=== PATIENT | female | born 1955 | race Caucasian/White ===

== ENCOUNTER → 2017-02-03 | Outpatient (CLI) | payer OTHER ==
[2017-02-03 17:28] LABS: Bilirubin, Delta 0.5 mg/dL (0.0-0.2); Total Bilirubin 1.5 mg/dL (0.2-1.3)
[2017-02-03 17:33] LABS: Basophils % (A) 0 %; CH 35.6; CHCM 33.5; Eosinophils # (A) 0.1 k/uL (0-0.7); Eosinophils % (A) 2 %; HDW 2.76; Luc # (Auto) 0.06; Luc % (Auto) 2; Lymphocytes # (A) 0.8 k/uL (1.0-4.8); Lymphocytes % (A) 28 %; MCH 34.9 pg (25.0-35.0); MCHC 32.7 g/dL (31.0-37.0); MCV 106.9 fL (80.0-100.0); Macrocytosis Moderate; Mean Platelet Volume 7.6; Monocytes # (A) 0.2 k/uL (0-1.0); Monocytes % (A) 6 %; Neutrophils # (A) 1.8 k/uL (1.3-7.7); Neutrophils % (A) 61 %; RBC 4.02 m/uL (3.80-5.40); WBC 2.9 k/uL (3.8-10.6); WBC (Perox) 2.94
== END | disposition home or self-care (01) ==
LOC: LABWHC1 16:17
DX: K74.69 Other cirrhosis of liver (principal)
CPT/HCPCS: 36415; 80076; 82105; 85025

== ENCOUNTER 2017-07-15 22:21 | Emergency (ER) | payer OTHER ==
[2017-07-15] MEDS ORDERED: KETOROLAC 30 MG/ML 1 ML VIAL IVP STA (23:21)
[2017-07-15] MEDS ORDERED: MORPHINE SULFATE 2 MG/ML SYRINGE IVP ONE (23:21)
[2017-07-15] MEDS ORDERED: ONDANSETRON 4 MG/2 ML VIAL IVP STA (23:21)
[2017-07-15] MEDS ORDERED: SODIUM CHLORIDE 0.9% 1,000 ML IV STA (23:21)
--- NOTE | 2017-07-15 23:27 | ED ---
Back Pain HPI - General Chief Complaint: Back Pain/Injury Stated Complaint: Back Pain Time Seen by Provider: 07/15/17 22:48 Source: patient Limitations: no limitations - History of Present Illness Initial Comments: Vision presents with sudden onset right flank pain since 7 PM tonight. Patient states that aching sensation in her right flank. States it was very severe on initial onset but has since improved. Patient states she has vomited twice tonight from the pain. Still feels nauseated. Patient states she's had renal stones in the past that they've seen on images, however she doesn't think she has ever passed one. Patient states she has similar episode of pain to weeks ago, was seen by her primary care physician, told she has a urinary tract infection. Patient states she's been on Bactrim. Patient denies fevers, chills , changes in bowel movements, vaginal bleeding or discharge. Patient states she feels like she has decreased urine. States she had some light pink possible blood after wiping after urinating. MD Complaint: other (flank pain) Onset/Timin -: hour(s) - Related Data Home Medications Medication Instructions Recorded Confirmed [id number]-HJA-Ckdjeyu-Codeine 1 - 2 cap PO Q4H PRN 08/24/07/15/17 [Fiorinal with Codeine] Sulfamethox-Tmp 800-160Mg [Bactrim 1 tab PO Q12HR 07/15/17 07/15/17 DS 800-160 mg] Previous Rx's Medication Instructions Recorded HYDROcodone/APAP 10-325MG [Assumption 1 tab PO Q4HR PRN #16 tab 07/16/17 10-325] Ondansetron Odt [Zofran Odt] 4 mg PO Q8HR PRN #10 tab 07/16/17 Tamsulosin [Flomax] 0.4 mg PO DAILY 5 Days #5 cap 07/16/17 Allergies Allergy/AdvReac Type Severity Reaction Status Date / Time No Known Allergies Allergy Verified 07/15/17 22:52 Review of Systems ROS Statement: Those systems with pertinent positive or pertinent negative responses have been documented in the HPI. ROS Other: All systems not noted in ROS Statement are negative. Constitutional: Denies: fever, chills ENT: Denies: throat pain, congestion Respiratory: Denies: cough, dyspnea Cardiovascular: Denies: chest pain Endocrine: Denies: fatigue Gastrointestinal: Reports: nausea, vomiting. Denies: abdominal pain, diarrhea, constipation, hematemesis, melena, hematochezia Genitourinary: Reports: hematuria. Denies: urgency, dysuria, frequency, discharge Musculoskeletal: Reports: as per HPI, back pain. Denies: arthralgia, myalgia Skin: Reports: rash, pruritus (States itching started after taking Bactrim) Past Medical History Past Medical History: Hypertension Additional Past Medical History / Comment(s): hx. migraine headaches, stopped taking BP medication on own History of Any Multi-Drug Resistant Organisms: None Reported Past Surgical History: Appendectomy, Tonsillectomy Additional Past Surgical History / Comment(s): D & C's Past Anesthesia/Blood Transfusion Reactions: No Reported Reaction Past Psychological History: No Psychological Hx Reported Smoking Status: Never smoker Past Alcohol Use History: None Reported Past Drug Use History: None Reported General Exam - General Exam Comments Initial Comments: Sitting up in chair. Appears in mild to moderate pain. Conversing normally. Calm, pleasant. Limitations: no limitations General appearance: alert Head exam: Present: atraumatic Eye exam: Present: PERRL, EOMI ENT exam: Present: mucous membranes moist Neck exam: Present: normal inspection Respiratory exam: Present: normal lung sounds bilaterally. Absent: respiratory distress, wheezes, rales Cardiovascular Exam: Present: regular rate, normal rhythm GI/Abdominal exam: Present: soft. Absent: distended, tenderness, guarding, rebound, rigid Back exam: Present: other (Red superficial scratch [place] on back bilaterally). Absent: CVA tenderness (R), CVA tenderness (L) Neurological exam: Present: alert, oriented X3 Psychiatric exam: Present: normal affect, normal mood Skin exam: Present: warm, dry, intact Course Vital Signs 07/15/17 07/15/17 22:30 23:48 Temperature 97.4 F L Pulse Rate 77 71 Respiratory 20 18 Rate Blood Pressure 181/77 199/77 O2 Sat by Pulse 98 97 Oximetry Medical Decision Making - Medical Decision Making Morphine Zofran, Toradol given for symptoms. Will get CT to rule out renal stone. CT shows 7 mm stone right ureterovesicular junction, with hydroureter and hydronephrosis. Cr 1.1. Urinalysis shows no obvious infection. Spoke with urologist Dr. Martin, updated patient condition results, states patient will passed stone on its own, can be discharged home with pain medications and call his office for follow-up. Pt updated with results and plan, states pain control at this time. We'll give prescription for Assumption and Flomax. Patient to follow up with Dr. Martin. Patient understands and agrees. Return to ED if new or worsening symptoms. - Lab Data Result diagrams: 07/15/17 23:43 07/15/17 23:43 Lab Results 07/15/17 07/15/17 07/15/17 Range/Units 23:43 23:43 23:43 WBC 4.0 (3.8-10.6) k/uL RBC 4.35 (3.80-5.40) m/uL Hgb 15.3 (11.4-16.0) gm/dL Hct 45.1 (34.0-46.0) % MCV 103.7 H (80.0-100.0) fL MCH 35.3 H (25.0-35.0) pg MCHC 34.1 (31.0-37.0) g/dL RDW 14.9 (11.5-15.5) % Sodium 141 (137-145) mmol/L Potassium 4.2 (3.5-5.1) mmol/L Chloride 105 (98-107) mmol/L Carbon Dioxide 24 (22-30) mmol/L Anion Gap 12 mmol/L BUN 14 (7-17) mg/dL Creatinine 1.10 H (0.52-1.04) mg/dL Est GFR (MDRD) Af Amer >60 (>60 ml/min/1.73 sqM) Est GFR (MDRD) Non-Af 51 (>60 ml/min/1.73 sqM) Glucose 140 H (74-99) mg/dL Calcium 9.5 (8.4-10.2) mg/dL Urine Color Yellow Urine Appearance Cloudy H (Clear) Urine pH 5.5 (5.0-8.0) Ur Specific [place] 1.025 (1.001-1.035) Urine Protein 1+ H (Negative) Urine Glucose (UA) Negative (Negative) Urine Ketones Negative (Negative) Urine Blood Large H (Negative) Urine Nitrite Negative (Negative) Urine Bilirubin Negative (Negative) Urine Urobilinogen 3.0 (<2.0) mg/dL Ur Leukocyte Esterase Large H (Negative) Urine RBC 48 H (0-5) /hpf Urine WBC 10 H (0-5) /hpf Ur Squamous Epith Cells 10 H (0-4) /hpf Urine Bacteria Rare H (None) /hpf Urine Mucus Occasional H (None) /hpf Disposition Clinical Impression: Renal stone Disposition: HOME SELF-CARE Condition: Good Instructions: Kidney Stones (ED) Additional Instructions: Make appointment with Dr. Martin for follow-up in 1-2 days. Prescriptions: HYDROcodone/APAP 10-325MG [Assumption 10-325] 1 tab PO Q4HR PRN #16 tab PRN Reason: Pain Ondansetron Odt [Zofran Odt] 4 mg PO Q8HR PRN #10 tab PRN Reason: Nausea Tamsulosin [Flomax] 0.4 mg PO DAILY 5 Days #5 cap Referrals: Saul Pearson MD [Primary Care Provider] - 1-2 days Geoff Vicente MD [STAFF PHYSICIAN] - 1-2 days
[2017-07-15 23:49] VITALS: RESP 18
[2017-07-15 23:55] LABS: Basophils % (A) 0 %; CH 34.5; CHCM 33.5; Eosinophils # (A) 0.1 k/uL (0-0.7); Eosinophils % (A) 2 %; HCT 45.1 % (34.0-46.0); HDW 2.75; HGB 15.3 gm/dL (11.4-16.0); Luc # (Auto) 0.07; Luc % (Auto) 2; Lymphocytes # (A) 0.5 k/uL (1.0-4.8); Lymphocytes % (A) 14 %; MCH 35.3 pg (25.0-35.0); MCHC 34.1 g/dL (31.0-37.0); MCV 103.7 fL (80.0-100.0); Macrocytosis Slight; Mean Platelet Volume 7.9; Monocytes # (A) 0.2 k/uL (0-1.0); Monocytes % (A) 5 %; Neutrophils # (A) 3.1 k/uL (1.3-7.7); Neutrophils % (A) 77 %; RBC 4.35 m/uL (3.80-5.40); RDW 14.9 % (11.5-15.5); WBC (Perox) 3.86
[2017-07-16 00:07] LABS: Appearance,Urine Cloudy (Clear); Bacteria,Urine Rare /hpf; Bilirubin,Urine Negative (Negative); Glucose,Urine (UA) Negative (Negative); Ketones,Urine Negative (Negative); Leukocyte Esterase,Urine Large (Negative); Mucus,Urine Occasional /hpf; Nitrite,Urine Negative (Negative); PH, Urine 5.5 (5.0-8.0); Particle Count 6531; Protein,Urine 1+ (Negative); RBC,Urine 48 /hpf (0-5); Specific Gravity,Urine 1.025 (1.001-1.035); Squamous Epithelial Cell,Urine 10 /hpf (0-4); UA Billing (MACRO vs. MICRO) MICRO; WBC,Urine 10 /hpf (0-5)
--- NOTE | 2017-07-16 00:09 | CT ---
EXAMINATION TYPE: CT renal stones wo con DATE OF EXAM: 07/15/2017 HISTORY: NO prior, lower right sided back pain, gross hematuria, currently being treated for a UTI, r enal stone protocol CT DLP: DLP:553.50 mGycm. Automated Exposure Control for Dose Reduction was Utilized. TECHNIQUE: CT scan of the abdomen and pelvis is performed without oral or IV contrast. COMPARISON: NONE FINDINGS: Lung bases are clear of consolidation. There is no pleural effusion. There is no pericardi al effusion. Spleen is enlarged and measures 15 cm. There is no evidence of pancreatic mass. There are numerous ca lcified gallstones. Bile ducts are not dilated. There is no adrenal mass. There is right-sided hydronephrosis and hydroureter. There is right-sided perinephric edema. There is a 7 mm calculus at the right ureterovesical junction. There are 2 small right renal calculi that floyd sure up to 4 mm. There is a 2 mm calculus in the lower pole left kidney. There is no retroperitoneal adenopathy. There is no ascites. Bladder distends smoothly. There is no e vidence of a pelvic mass. I see no intestinal wall thickening. There are no dilated loops. There are spondylotic changes in the lumbar spine. CONCLUSION: Cholelithiasis. Right-sided hydronephrosis and hydroureter with obstructing calculus at the right ureterovesical junc tion. Bilateral multiple renal calculi.
[2017-07-16 00:17] LABS: Anion Gap 12 mmol/L; Blood Urea Nitrogen 14 mg/dL (7-17); Calcium 9.5 mg/dL (8.4-10.2); Carbon Dioxide 24 mmol/L (22-30); Chloride 105 mmol/L (98-107); Glucose 140 mg/dL (74-99); Non-African American GFR(MDRD) 51 (>60 ml/min/1.73 sqM); Potassium 4.2 mmol/L (3.5-5.1); Sodium 141 mmol/L (137-145)
[2017-07-16 00:37] VITALS: BP 159/70; PULSE 79
[2017-07-16 00:42] LABS: Manual Review Performed; RBC Morphology Normal
[2017-07-16] MEDS ORDERED: HYDROmorphone 1 MG/ML 1 ML SYRINGE IVP STA (00:52)
[2017-07-16 01:03] VITALS: TEMP 97.7
== END 2017-07-16 01:01 | disposition home or self-care (01) ==
LOC: EC 22:21
DX: N13.2 Hydronephrosis with renal and ureteral calculous obstruction (principal); Z90.49 Acquired absence of other specified parts of digestive tract
CPT/HCPCS: 99284; 96374; 96375 ×3; 96361; 36415; 80048; 85025; 81001; 87086; 74150; J2405; J1885; J2270; J1170

== ENCOUNTER → 2017-08-07 | Outpatient (CLI) | payer OTHER ==
[2017-08-07 16:26] LABS: Bilirubin, Delta 0.4 mg/dL (0.0-0.2); Total Bilirubin 1.3 mg/dL (0.2-1.3); Total Protein 6.6 g/dL (6.3-8.2)
== END | disposition home or self-care (01) ==
LOC: LABWHC1 15:35
DX: K74.69 Other cirrhosis of liver (principal)
CPT/HCPCS: 36415; 80076; 82105

== ENCOUNTER → 2018-01-27 | Outpatient (CLI) | payer OTHER ==
[2018-01-27 15:58] LABS: HCT 39.9 % (34.0-46.0); HGB 13.8 gm/dL (11.4-16.0); MCH 35.1 pg (25.0-35.0); MCHC 34.6 g/dL (31.0-37.0); MCV 101.3 fL (80.0-100.0); Macrocytosis Slight; Mean Platelet Volume 7.2; RBC 3.94 m/uL (3.80-5.40); RDW 14.3 % (11.5-15.5); WBC 3.7 k/uL (3.8-10.6)
[2018-01-27 16:08] LABS: ALT 50 U/L (9-52); AST 59 U/L (14-36); Albumin 3.7 g/dL (3.5-5.0); Alkaline Phosphatase 97 U/L (38-126); Anion Gap 10 mmol/L; Blood Urea Nitrogen 14 mg/dL (7-17); Calcium 9.5 mg/dL (8.4-10.2); Carbon Dioxide 28 mmol/L (22-30); Chloride 108 mmol/L (98-107); Glucose 99 mg/dL (74-99); Potassium 4.7 mmol/L (3.5-5.1); Sodium 146 mmol/L (137-145); Total Bilirubin 1.8 mg/dL (0.2-1.3); Total Protein 6.6 g/dL (6.3-8.2)
[2018-01-27 16:34] LABS: Platelet Count 70 k/uL (150-450)
== END | disposition home or self-care (01) ==
LOC: LABWHC1 15:39
DX: K74.69 Other cirrhosis of liver (principal)
CPT/HCPCS: 36415; 80053; 82105; 85027

== ENCOUNTER → 2018-07-29 | Outpatient (CLI) | payer OTHER ==
[2018-07-29 17:11] LABS: HGB 13.5 gm/dL (11.4-16.0); MCH 35.5 pg (25.0-35.0); MCHC 32.9 g/dL (31.0-37.0); MCV 108.1 fL (80.0-100.0); Macrocytosis Marked; Mean Platelet Volume 7.2; RBC 3.79 m/uL (3.80-5.40); RDW 14.4 % (11.5-15.5); WBC 2.5 k/uL (3.8-10.6)
[2018-07-29 18:41] LABS: Platelet Count 51 k/uL (150-450)
[2018-07-30 03:25] LABS: Albumin 3.6 g/dL (3.80-4.90); Albumin/Globulin Ratio 1.57 (1.20-2.10); Anion Gap 6.2 mmol/L (4.00-12.00); Calcium 8.8 mg/dL (8.7-10.3); Carbon Dioxide 27.8 mmol/L (21.6-31.8); Globulin 2.3 g/dL (2.1-3.7); Potassium 4.3 mmol/L (3.5-5.5); Total Bilirubin 1.6 mg/dL (0.3-1.2); Total Protein 5.9 g/dL (6.2-8.2)
== END | disposition home or self-care (01) ==
LOC: LABWHC1 15:32
DX: K74.69 Other cirrhosis of liver (principal)
CPT/HCPCS: 36415; 80053; 82105; 85027

== ENCOUNTER → 2019-02-11 | Outpatient (CLI) | payer BC ==
[2019-02-11 16:17] LABS: Basophils % (A) 1 %; Eosinophils # (A) 0.1 k/uL (0-0.7); Eosinophils % (A) 4 %; HCT 41.6 % (34.0-46.0); HGB 13.8 gm/dL (11.4-16.0); Lymphocytes # (A) 0.7 k/uL (1.0-4.8); Lymphocytes % (A) 32 %; MCHC 33.1 g/dL (31.0-37.0); MCV 105.7 fL (80.0-100.0); Macrocytosis Moderate; Mean Platelet Volume 8.2; Monocytes # (A) 0.2 k/uL (0-1.0); Monocytes % (A) 7 %; Neutrophils # (A) 1.2 k/uL (1.3-7.7); Neutrophils % (A) 54 %; RBC 3.93 m/uL (3.80-5.40); RDW 14.2 % (11.5-15.5); WBC 2.3 k/uL (3.8-10.6)
[2019-02-11 16:52] LABS: Platelet Count 59 k/uL (150-450)
[2019-02-11 23:51] LABS: Albumin 3.5 g/dL (3.80-4.90); Albumin/Globulin Ratio 1.4 (1.60-3.17); Anion Gap 7.3 mmol/L (4.00-12.00); Calcium 8.7 mg/dL (8.7-10.3); Carbon Dioxide 28.7 mmol/L (21.6-31.8); Globulin 2.5 g/dL (1.6-3.3); Potassium 4.3 mmol/L (3.5-5.5); Total Bilirubin 1.9 mg/dL (0.3-1.2)
== END | disposition home or self-care (01) ==
LOC: LABWHC1 15:42
DX: K74.69 Other cirrhosis of liver (principal)
CPT/HCPCS: 36415; 80053; 85025

== ENCOUNTER → 2019-02-17 | Outpatient (CLI) | payer BC, OTHER ==
--- NOTE | 2019-02-17 10:52 | CT ---
EXAMINATION TYPE: CT abdomen wo/w con DATE OF EXAM: 02/17/2019 COMPARISON: 07/15/2017 INDICATION: Cirrhosis of liver DLP: 1333.6 mGycm, Automated exposure control for dose reduction was used. CONTRAST: 100 mL of Isovue 300. Study performed with Oral Contrast TECHNIQUE: Axial images were obtained from above the diaphragm to the pubic rami in the axial plane a t 5 mm thick sections. Reconstructed images are reviewed on the computer in the coronal plane. FINDINGS: Limited CT sections are obtained the lung bases. A 0.3 cm calcification may be adjacent to the major fissure at the right lower lung field. Series 4 image 1. This was present previously. Possible calci fication may be in the posterior lateral right lung base 0.3 cm. Series [address] ABDOMEN: There may be some thickening within the distal antrum and proximal duodenum at the pyloru s.. Liver: Normal Spleen: Enlarged Pancreas: Normal Adrenal glands: The adrenal glands are normal. Gallbladder: Cholelithiasis Kidneys: No masses are evident. No hydronephrosis is present. No cysts are present. There is a 0.3 cm nonobstructing renal stone inferior pole right kidney. There is a nonobstructing renal stone nani uring 0.4 cm superior pole right kidney. Nonobstructing 0.2 cm calcification is at the inferior pole left kidney. Aorta: Vascular calcification is within the aorta. Inferior vena cava: Normal. Loops of bowel within the abdomen and pelvis are otherwise normal. There are loops of bowel which are incompletely distended or lack oral contrast limiting their evaluation. IMPRESSIONS: 1. Nonobstructing bilateral renal stones. 2. Cholelithiasis. 3. Thickening at the distal antrum the stomach and proximal duodenum through the pylorus. Correlate f or inflammatory changes. Ulcer could have this type of thickening. Neoplasm is not excluded but could be considered. 4. Splenomegaly
== END ==
LOC: RADCTMAIN 08:33
DX: N20.0 Calculus of kidney (principal); K80.20 Calculus of gallbladder without cholecystitis without obstruction; K31.89 Other diseases of stomach and duodenum
CPT/HCPCS: 74170; Q9967

== ENCOUNTER → 2019-05-03 | Outpatient (CLI) | payer BC | END | disposition home or self-care (01) | LOC: LABWHC1 16:13 | PROVIDERS: ATTEND Family Medicine | DX: M85.80 Other specified disorders of bone density and structure, unspecified site (principal) | CPT/HCPCS: 36415; 82306 ==

== ENCOUNTER → 2020-04-25 | Outpatient (CLI) | payer BC ==
[2020-04-25 15:13] LABS: Basophils % (A) 1 %; Eosinophils # (A) 0.1 k/uL (0-0.7); Eosinophils % (A) 3 %; HCT 39.9 % (34.0-46.0); HGB 12.7 gm/dL (11.4-16.0); Lymphocytes # (A) 0.7 k/uL (1.0-4.8); Lymphocytes % (A) 29 %; MCH 35.2 pg (25.0-35.0); MCHC 31.8 g/dL (31.0-37.0); MCV 110.7 fL (80.0-100.0); Macrocytosis Marked; Mean Platelet Volume 8.6; Monocytes # (A) 0.2 k/uL (0-1.0); Monocytes % (A) 7 %; Neutrophils # (A) 1.3 k/uL (1.3-7.7); Neutrophils % (A) 57 %; RDW 14.7 % (11.5-15.5); WBC 2.4 k/uL (3.8-10.6)
[2020-04-25 15:31] LABS: Platelet Count 44 k/uL (150-450)
[2020-04-25 19:45] LABS: African American GFR (CKD) 78.9 (60.0-200.0); Albumin 3.2 g/dL (3.80-4.90); Albumin/Globulin Ratio 1.33 (1.60-3.17); Anion Gap 5.7 mmol/L (4.00-12.00); BUN/Creat Ratio 13.33 Ratio (12.00-20.00); Calcium 9.4 mg/dL (8.7-10.3); Carbon Dioxide 27.3 mmol/L (21.6-31.8); Globulin 2.4 g/dL (1.6-3.3); Potassium 4.1 mmol/L (3.5-5.5); Total Bilirubin 3.9 mg/dL (0.2-1.2); Total Protein 5.6 g/dL (6.2-8.2)
== END | disposition home or self-care (01) ==
LOC: LABWHC1 14:21
PROVIDERS: ATTEND Internal Medicine
DX: K74.69 Other cirrhosis of liver (principal)
CPT/HCPCS: 36415; 80053; 82105; 85025

== ENCOUNTER → 2020-04-26 | Outpatient (CLI) | payer BC ==
--- NOTE | 2020-04-26 15:16 | US ---
EXAMINATION TYPE: US abdomen complete DATE OF EXAM: 04/26/2020 COMPARISON: NONE CLINICAL HISTORY: K74.69 Other cirrhosis of liver. EXAM MEASUREMENTS: Liver Length: 10.5 cm Gallbladder Wall: 0.3 cm CBD: 0.4 cm Spleen: 13.6 cm Right Kidney: 9.4 x 5.2 x 4.1 cm Left Kidney: 10.2 x 4.6 x 4.5 cm Patient of large body habitus with extensive overlying bowel gas. Technically difficult, limited stud y. Pancreas: Obscured by bowel gas Liver: partially obscured by bowel gas, portions visualized heterogeneous Gallbladder: cholelithiasis Evidence for sonographic Duarte's sign: no CBD: wnl Spleen: splenomegaly, ?varices adjacent to spleen Right Kidney: Inferior pole obscured by bowel gas, limited views Left Kidney: inferior stone noted, partially obscured by bowel gas, limited views Upper IVC: wnl Abd Aorta: portions visualized wnl, proximal and bifurcation obscured by bowel gas IMPRESSION: 1. Cholelithiasis. 2. Minimal splenomegaly measuring 13.6 cm. Normal less than 12.5 cm. Some varices may be adjacent to the spleen. 3. Inferior pole nonobstructing left renal stone.
== END | disposition home or self-care (01) ==
LOC: RADUSWWP 14:19
PROVIDERS: ATTEND Internal Medicine
DX: K80.20 Calculus of gallbladder without cholecystitis without obstruction (principal); R16.1 Splenomegaly, not elsewhere classified; N20.0 Calculus of kidney
CPT/HCPCS: 76700

== ENCOUNTER 2020-06-05 10:33 | Day surgery (SDC) | payer BC ==
[2020-06-01 11:26] VITALS: BMI 35.8
[~2020-06-05 10:33] MED LIST: LACTATED RINGERS 1,000 ML IV SCH
[2020-06-05 11:09] VITALS: TEMP 97.7
[2020-06-05] MEDS ORDERED: LIDOCAINE 1% (10MG/ML) FOR IV START INTRADERMA ONE (11:10)
[2020-06-05] MEDS ORDERED: PROPOFOL 10 MG/ML 20 ML VIAL IV ONE (12:08)
[2020-06-05] MEDS ORDERED: LIDOCAINE 1% INJ 10MG/ML (20 ML MDV) ONE (12:08)
--- NOTE | 2020-06-05 12:35 | P.PCN ---
Date of Procedure: 06/05/20 Description of Procedure: BRIEF HISTORY: Patient is a 64-year-old female presenting for outpatient EGD for evaluation of cirrhosis. The patient has a known history of cryptogenic cirrhosis. No signs or symptoms of GI bleeding but she has had symptoms of fluid overload and was started on diuretic therapy recently. PROCEDURE PERFORMED: Esophagogastroduodenoscopy with biopsy. PREOPERATIVE DIAGNOSIS: Cirrhosis of the liver. ESTIMATED BLOOD LOSS: Minimal. IV sedation per anesthesia. PROCEDURE: After informed consent was obtained, the patient was brought into the endoscopy unit. IV sedation was administered by Anesthesia under continuous monitoring. Initially the Olympus GIF-190 video endoscope was inserted into the mouth. Esophagus intubated without any difficulty. It was gradually advanced into the stomach and duodenum and carefully examined. The bulb and the second part of the duodenum appeared normal, with biopsies taken. The scope at this time was withdrawn to the stomach, adequately insufflated with air, and upon careful examination, mucosa of the antrum, body, cardia and the fundus appeared normal, except for mild erythema in the antrum suggestive of mild antritis with biopsies of the antrum and body taken. The scope was then withdrawn into the esophagus. The GE junction was located at 38 cm from the incisors. The esophagus appeared normal. There were no erosions or ulcerations seen and the patient tolerated the procedure well. IMPRESSION: 1. Mild gastritis. 2. Biopsies of the duodenum and antrum and body. RECOMMENDATIONS: The findings of this examination were discussed with the patient in her family. Okay to resume diet. Okay to resume medications. Follow-up in GI clinic as scheduled for continued titration of medications. Repeat EGD in 2 years for variceal screening.
[2020-06-05 12:57] VITALS: BP 148/85; PULSE 65; RESP 20
== END 2020-06-05 13:33 | disposition home or self-care (01) ==
LOC: ORWHC2ENDO 10:33
PROVIDERS: ATTEND Internal Medicine
DX: K29.50 Unspecified chronic gastritis without bleeding (principal); K74.69 Other cirrhosis of liver; I10 Essential (primary) hypertension; G43.909 Migraine, unspecified, not intractable, without status migrainosus; Z79.899 Other long term (current) drug therapy; Z90.49 Acquired absence of other specified parts of digestive tract
CPT/HCPCS: 88305; 43239; J2001; J2704

== ENCOUNTER → 2020-10-03 | Outpatient (CLI) | payer BC ==
[2020-10-03 15:37] LABS: Basophils % (A) 1 %; Eosinophils # (A) 0.1 k/uL (0-0.7); Eosinophils % (A) 3 %; HCT 40.2 % (34.0-46.0); Lymphocytes # (A) 0.6 k/uL (1.0-4.8); Lymphocytes % (A) 21 %; MCH 39.1 pg (25.0-35.0); MCHC 34.7 g/dL (31.0-37.0); MCV 112.6 fL (80.0-100.0); Macrocytosis Marked; Mean Platelet Volume 8.3; Monocytes # (A) 0.2 k/uL (0-1.0); Monocytes % (A) 8 %; Neutrophils # (A) 1.9 k/uL (1.3-7.7); Neutrophils % (A) 64 %; RBC 3.57 m/uL (3.80-5.40); RDW 14.5 % (11.5-15.5); WBC 2.9 k/uL (3.8-10.6)
[2020-10-03 15:48] LABS: Platelet Count 57 k/uL (150-450)
[2020-10-03 22:51] LABS: INR 1.14 (0.90-1.11); Prothrombin Time 12.2 sec (9.9-11.9)
[2020-10-04 08:39] LABS: African American GFR (CKD) 55.7 (60.0-200.0); Albumin 3.4 g/dL (3.80-4.90); Albumin/Globulin Ratio 2.27 (1.60-3.17); Anion Gap 9.9 mmol/L (4.00-12.00); BUN/Creat Ratio 16.67 Ratio (12.00-20.00); Calcium 9.1 mg/dL (8.7-10.3); Carbon Dioxide 25.1 mmol/L (21.6-31.8); Globulin 1.5 g/dL (1.6-3.3); Non-African American GFR(CKD) 48.1 (60.0-200.0); Potassium 4.4 mmol/L (3.5-5.5); Total Bilirubin 4.3 mg/dL (0.2-1.2); Total Protein 4.9 g/dL (6.2-8.2)
== END | disposition home or self-care (01) ==
LOC: LABWHC1 15:19
PROVIDERS: ATTEND Internal Medicine
DX: K74.69 Other cirrhosis of liver (principal)
CPT/HCPCS: 36415; 80053; 82140; 85025; 85610

== ENCOUNTER → 2020-11-10 | Outpatient (CLI) | payer BC ==
[2020-11-10 12:25] LABS: ALT 65 U/L (8-44); AST 85 U/L (13-35); African American GFR (CKD) 68.9 (60.0-200.0); Albumin/Globulin Ratio 2.75 (1.60-3.17); Alkaline Phosphatase 116 U/L (41-126); Calcium 8.6 mg/dL (8.7-10.3); Carbon Dioxide 28.4 mmol/L (21.6-31.8); Chloride 106 mmol/L (96-109); Cholesterol 174 mg/dL (0-200); Globulin 1.2 g/dL (1.6-3.3); Glucose 96 mg/dL (70-110); Non-African American GFR(CKD) 59.5 (60.0-200.0); Potassium 4.9 mmol/L (3.5-5.5); Sodium 139 mmol/L (135-145); Total Bilirubin 5.6 mg/dL (0.3-1.2); Total Protein 4.5 g/dL (6.2-8.2); Triglycerides <50.0 mg/dL (0.0-149.0)
[2020-11-10 12:36] LABS: Basophils # (A) 0.03 X 10*3/uL (0.00-0.10); Basophils % (A) 1.2 %; Eosinophils # (A) 0.18 X 10*3/uL (0.04-0.35); Eosinophils % (A) 7.2 %; HGB 12.7 g/dL (12.0-15.0); Lymphocytes # (A) 0.51 X 10*3/uL (0.90-5.00); Lymphocytes % (A) 20.5 %; MCHC 34.3 g/dL (32.0-37.0); MCV 113.5 fL (80.0-97.0); Neutrophils # (A) 1.46 X 10*3/uL (1.80-7.70); Neutrophils % (A) 58.7 %; Platelet Count 50 X 10*3/uL (140-440); RBC 3.26 X 10*6/uL (4.10-5.20); WBC 2.49 X 10*3/uL (4.50-10.00)
[2020-11-10 12:37] LABS: Macrocytosis (M) 2+
== END | disposition home or self-care (01) ==
LOC: LABWHC1 07:05
PROVIDERS: ATTEND Family Medicine
DX: I10 Essential (primary) hypertension (principal); M85.80 Other specified disorders of bone density and structure, unspecified site
CPT/HCPCS: 36415; 80053; 80061; 82306; 84443; 85025

== ENCOUNTER → 2020-11-30 | Outpatient (CLI) | payer BC ==
[2020-11-30 16:55] LABS: INR 1.24 (0.90-1.11); Prothrombin Time 13.3 sec (9.9-11.9)
[2020-11-30 17:12] LABS: Basophils # (A) 0.03 X 10*3/uL (0.00-0.10); Basophils % (A) 1.4 %; Eosinophils # (A) 0.09 X 10*3/uL (0.04-0.35); Eosinophils % (A) 4.1 %; HGB 11.7 g/dL (12.0-15.0); Lymphocytes # (A) 0.38 X 10*3/uL (0.90-5.00); Lymphocytes % (A) 17.1 %; MCH 38.4 pg (27.0-32.0); MCHC 33.4 g/dL (32.0-37.0); MCV 114.8 fL (80.0-97.0); Mean Platelet Volume 10.3 fL (9.5-12.2); Neutrophils # (A) 1.52 X 10*3/uL (1.80-7.70); Neutrophils % (A) 68.4 %; Platelet Count 46 X 10*3/uL (140-440); RBC 3.05 X 10*6/uL (4.10-5.20); RDW 15.3 % (11.5-14.5); WBC 2.22 X 10*3/uL (4.50-10.00)
[2020-12-01 03:43] LABS: African American GFR (CKD) 68.9 (60.0-200.0); Albumin 3.3 g/dL (3.80-4.90); Albumin/Globulin Ratio 2.36 (1.60-3.17); Anion Gap 11.3 mmol/L (4.00-12.00); Calcium 8.7 mg/dL (8.7-10.3); Carbon Dioxide 22.7 mmol/L (21.6-31.8); Globulin 1.4 g/dL (1.6-3.3); Non-African American GFR(CKD) 59.5 (60.0-200.0); Potassium 4.5 mmol/L (3.5-5.5); Total Bilirubin 5.8 mg/dL (0.2-1.2); Total Protein 4.7 g/dL (6.2-8.2)
== END | disposition home or self-care (01) ==
LOC: LABWHC1 10:12
PROVIDERS: ATTEND Internal Medicine
DX: K74.69 Other cirrhosis of liver (principal)
CPT/HCPCS: 36415; 80053; 82105; 82140; 85025; 85610

== ENCOUNTER → 2020-12-21 | Outpatient (CLI) | payer BC ==
--- NOTE | 2020-12-21 10:35 | US ---
EXAMINATION TYPE: US abdomen complete DATE OF EXAM: 12/21/2020 COMPARISON: NONE CLINICAL HISTORY: K74.69 other cirrhosis of liver. Cirrhosis exam limited due to body habitus and ove rlying bowel gas. EXAM MEASUREMENTS: Liver Length: 11.5 cm Gallbladder Wall: .3 cm CBD: .6 cm Spleen: 14.1 cm Right Kidney: 8.6 x 4.3 x 4.4 cm Left Kidney: 10.2 x 4.1 x 3.6 cm Pancreas: Obscured by bowel gas Liver: Increased attenuation heterogenous Gallbladder: Multiple gallstones seen. Evidence for sonographic Duarte's sign: No CBD: wnl Spleen: Spleenomegaly Right Kidney: Limited due to bowel gas Left Kidney: Limited due to bowel gas Upper IVC: wnl Abd Aorta: wnl IMPRESSION: 1. Heterogenous appearance to the liver. Correlate for mild fatty infiltration. 2. Splenomegaly. 3. Cholelithiasis 4. Small amount of ascites.
== END | disposition home or self-care (01) ==
LOC: RADUSWWP 06:55
PROVIDERS: ATTEND Internal Medicine
DX: K74.69 Other cirrhosis of liver (principal); R16.1 Splenomegaly, not elsewhere classified; K80.20 Calculus of gallbladder without cholecystitis without obstruction; R18.8 Other ascites
CPT/HCPCS: 76700

== ENCOUNTER → 2021-03-13 | Outpatient (CLI) | payer BC ==
[2021-03-13 22:42] LABS: INR 1.2 (0.90-1.11); Prothrombin Time 12.9 sec (9.9-11.9)
[2021-03-13 22:57] LABS: Basophils # (A) 0.03 X 10*3/uL (0.00-0.10); Basophils % (A) 0.6 %; Eosinophils # (A) 0.12 X 10*3/uL (0.04-0.35); Eosinophils % (A) 2.5 %; HCT 32.2 % (37.2-46.3); HGB 10.8 g/dL (12.0-15.0); Lymphocytes # (A) 0.61 X 10*3/uL (0.90-5.00); Lymphocytes % (A) 12.7 %; MCH 39.9 pg (27.0-32.0); MCHC 33.5 g/dL (32.0-37.0); MCV 118.8 fL (80.0-97.0); Mean Platelet Volume 10.6 fL (9.5-12.2); Monocytes # (A) 0.52 X 10*3/uL (0.20-1.00); Monocytes % (A) 10.8 %; Neutrophils % (A) 72.8 %; Platelet Count 70 X 10*3/uL (140-440); RBC 2.71 X 10*6/uL (4.10-5.20); RDW 16.5 % (11.5-14.5); WBC 4.81 X 10*3/uL (4.50-10.00)
[2021-03-14 04:01] LABS: African American GFR (CKD) 68.9 (60.0-200.0); Albumin 3.1 g/dL (3.80-4.90); Albumin/Globulin Ratio 1.94 (1.60-3.17); Anion Gap 7.6 mmol/L (4.00-12.00); Calcium 8.4 mg/dL (8.7-10.3); Carbon Dioxide 25.4 mmol/L (21.6-31.8); Globulin 1.6 g/dL (1.6-3.3); Non-African American GFR(CKD) 59.5 (60.0-200.0); Potassium 4.4 mmol/L (3.5-5.5); Total Protein 4.7 g/dL (6.2-8.2)
== END | disposition home or self-care (01) ==
LOC: LABWHC1 15:53
PROVIDERS: ATTEND Internal Medicine
DX: K74.69 Other cirrhosis of liver (principal)
CPT/HCPCS: 36415; 80053; 82140; 85025; 85610

== ENCOUNTER → 2021-06-18 | Outpatient (CLI) | payer BC ==
[2021-06-18 23:29] LABS: INR 1.15 (0.90-1.11); Prothrombin Time 12.4 sec (9.9-11.9)
[2021-06-19 06:25] LABS: Basophils # (A) 0.04 X 10*3/uL (0.00-0.10); Basophils % (A) 1.1 %; Eosinophils # (A) 0.25 X 10*3/uL (0.04-0.35); Eosinophils % (A) 7.1 %; HCT 31.7 % (37.2-46.3); HGB 10.7 g/dL (12.0-15.0); Lymphocytes # (A) 0.53 X 10*3/uL (0.90-5.00); MCH 39.2 pg (27.0-32.0); MCHC 33.8 g/dL (32.0-37.0); MCV 116.1 fL (80.0-97.0); Mean Platelet Volume 10.5 fL (9.5-12.2); Monocytes # (A) 0.44 X 10*3/uL (0.20-1.00); Monocytes % (A) 12.5 %; Neutrophils # (A) 2.26 X 10*3/uL (1.80-7.70); Platelet Count 63 X 10*3/uL (140-440); RBC 2.73 X 10*6/uL (4.10-5.20); RDW 15.2 % (11.5-14.5); WBC 3.53 X 10*3/uL (4.50-10.00)
[2021-06-19 06:26] LABS: Macrocytosis (M) 2+
[2021-06-19 07:54] LABS: African American GFR (CKD) 61.4 (60.0-200.0); Albumin 3.2 g/dL (3.80-4.90); Anion Gap 9.2 mmol/L (4.00-12.00); BUN/Creat Ratio 21.82 Ratio (12.00-20.00); Calcium 8.6 mg/dL (8.7-10.3); Carbon Dioxide 23.8 mmol/L (21.6-31.8); Globulin 1.6 g/dL (1.6-3.3); Potassium 4.2 mmol/L (3.5-5.5); Total Bilirubin 6.8 mg/dL (0.3-1.2); Total Protein 4.8 g/dL (6.2-8.2)
== END | disposition home or self-care (01) ==
LOC: LABWHC1 16:23
PROVIDERS: ATTEND Internal Medicine Gastroenterology
DX: K74.69 Other cirrhosis of liver (principal)
CPT/HCPCS: 36415; 80053; 82140; 85025; 85610

== ENCOUNTER → 2021-09-20 | Outpatient (CLI) | payer BC ==
[2021-09-20 19:20] LABS: INR 1.49 (0.90-1.11); Prothrombin Time 16.1 sec (9.9-11.9)
[2021-09-20 19:45] LABS: Basophils # (A) 0.02 X 10*3/uL (0.00-0.10); Basophils % (A) 0.6 %; Eosinophils # (A) 0.09 X 10*3/uL (0.04-0.35); Eosinophils % (A) 2.8 %; HCT 30.9 % (37.2-46.3); HGB 9.8 g/dL (12.0-15.0); Lymphocytes # (A) 0.34 X 10*3/uL (0.90-5.00); Lymphocytes % (A) 10.7 %; MCH 39.4 pg (27.0-32.0); MCHC 31.7 g/dL (32.0-37.0); MCV 124.1 fL (80.0-97.0); Mean Platelet Volume 11.6 fL (9.5-12.2); Monocytes # (A) 0.22 X 10*3/uL (0.20-1.00); Monocytes % (A) 6.9 %; Neutrophils # (A) 2.49 X 10*3/uL (1.80-7.70); Neutrophils % (A) 78.1 %; Platelet Count 52 X 10*3/uL (140-440); RBC 2.49 X 10*6/uL (4.10-5.20); WBC 3.19 X 10*3/uL (4.50-10.00)
[2021-09-20 19:56] LABS: African American GFR (CKD) 33.9 (60.0-200.0); Albumin 2.5 g/dL (3.8-4.9); Albumin/Globulin Ratio 1.19 (1.60-3.17); Anion Gap 12.5 mmol/L (10.00-18.00); BUN/Creat Ratio 12.56 Ratio (12.00-20.00); Blood Urea Nitrogen 22.6 mg/dL (9.0-27.0); Calcium 8.2 mg/dL (8.7-10.3); Carbon Dioxide 22.5 mmol/L (20.0-27.5); Globulin 2.1 g/dL (1.6-3.3); Non-African American GFR(CKD) 29.2 (60.0-200.0); Potassium 3.8 mmol/L (3.5-5.5); Total Bilirubin 8.2 mg/dL (0.30-1.20); Total Protein 4.6 g/dL (6.2-8.2)
== END | disposition home or self-care (01) ==
LOC: LABWHC1 11:37
PROVIDERS: ATTEND Nurse Practitioner Family
DX: K74.69 Other cirrhosis of liver (principal)
CPT/HCPCS: 36415; 80053; 85025; 85610

== ENCOUNTER 2021-10-14 12:33 | Inpatient (IN) | payer BC ==
[2021-10-14 13:48] LABS: Albumin 2.4 g/dL (3.5-5.0); Bilirubin, Conjugated 1.6 mg/dL (0.0-0.3); Bilirubin, Delta 3.1 mg/dL (0.0-0.2); Bilirubin,Unconjugated 5.5 mg/dL (0.0-1.1); Calcium 8.6 mg/dL (8.4-10.2); Potassium 4.2 mmol/L (3.5-5.1); Total Bilirubin 10.2 mg/dL (0.2-1.3)
[2021-10-14 13:51] LABS: Anisocytosis Slight; Basophils % (A) 1 %; Eosinophils # (A) 0.2 k/uL (0-0.7); Eosinophils % (A) 3 %; HCT 27.5 % (34.0-46.0); HGB 9.2 gm/dL (11.4-16.0); Hypochromasia Moderate; Lymphocytes # (A) 0.4 k/uL (1.0-4.8); Lymphocytes % (A) 7 %; MCH 41.9 pg (25.0-35.0); MCHC 33.5 g/dL (31.0-37.0); MCV 125.1 fL (80.0-100.0); Macrocytosis Marked; Mean Platelet Volume 8.3; Monocytes # (A) 0.3 k/uL (0-1.0); Monocytes % (A) 5 %; Neutrophils # (A) 4.9 k/uL (1.3-7.7); Neutrophils % (A) 83 %; Poikilocytosis Moderate; RDW 17.3 % (11.5-15.5)
--- NOTE | 2021-10-14 14:00 | XR ---
EXAMINATION TYPE: XR chest 2V DATE OF EXAM: 10/14/2021 COMPARISON: Chest CT 02/20/2015 HISTORY: Increasing shortness of breath TECHNIQUE: Frontal and lateral views of the chest are obtained. FINDINGS: There habeen interval development of a large right pleural effusion, the right hemidiaphra gm and heart border obscured. There is minimal opacified along the right upper lobe. No evident pneum othorax. IMPRESSION: Large right pleural effusion, follow-up suggested, there may be underlying pneumonia, at electasis, cannot exclude mass
[2021-10-14 14:19] LABS: INR 1.5 (<1.2); Partial Thromboplastin Time 32.4 sec (22.0-30.0); Prothrombin Time 15.2 sec (9.0-12.0)
--- NOTE | 2021-10-14 14:38 | ED ---
SOB HPI - General Chief Complaint: Shortness of Breath Stated Complaint: SOB Source: patient Mode of arrival: wheelchair Limitations: no limitations - History of Present Illness Initial Comments: 65-year-old female presents emergency Department with reported respiratory insufficiency. Patient does have a history of cryptogenic liver disease. She is followed by Dr. Torres. States that she has been going through [facility] for evaluation of possible liver transplant. States that over the past several days she has had worsening shortness of breath. Denies any history of cardiac or pulmonary issues. Denies any changes in skin coloration. Patient does have ecchymosis of her upper extremities which she states is normal for her. She denies any chest pain. Reports that her liver enzymes have been slowly worsening however Dr. Torres is aware of this. She denies cough, fevers or chills. No worsening abdominal ascites. Patient has never received a paracentesis before. Denies any worsening of her lower extremity edema. No other alleviating, precipitating mopping factors - Related Data Home Medications Medication Instructions Recorded Confirmed Fluticasone Propionate [Flovent 1 puff INHALATION RT-BID 10/14/21 10/14/21 Hfa 110 mcg] Furosemide [Lasix] 40 mg PO Q48H 10/14/21 10/14/21 Ondansetron [Zofran] 4 mg PO Q8H PRN 10/14/21 10/14/21 Spironolactone [Aldactone] 100 mg PO Q48H 10/14/21 10/14/21 Allergies Allergy/AdvReac Type Severity Reaction Status Date / Time No Known Allergies Allergy Verified 10/14/21 13:42 Review of Systems ROS Statement: Those systems with pertinent positive or pertinent negative responses have been documented in the HPI. ROS Other: All systems not noted in ROS Statement are negative. Past Medical History Past Medical History: Hypertension Additional Past Medical History / Comment(s): hx. migraine headaches,. CI RROHISIS OF LIVER-UNKNOWN ORIGIN History of Any Multi-Drug Resistant Organisms: None Reported Past Surgical History: Appendectomy, Tonsillectomy Additional Past Surgical History / Comment(s): D & C's Past Anesthesia/Blood Transfusion Reactions: No Reported Reaction Past Psychological History: No Psychological Hx Reported Smoking Status: Never smoker Past Alcohol Use History: None Reported Past Drug Use History: None Reported - Past Family History Mother Family Medical History: Cancer General Exam Limitations: no limitations Course Vital Signs 10/14/21 10/14/21 12:35 14:56 Temperature 98.5 F Pulse Rate 106 H 90 Respiratory 22 18 Rate Blood Pressure 127/58 141/63 O2 Sat by Pulse 95 94 L Oximetry Medical Decision Making - Medical Decision Making Upon arrival patient is placed into room 7. A thorough history and physical exam is performed. IV is established laboratory studies were conducted. Patient does have a hemoglobin of 9.2. Platelets 62. INR 1.5. D-dimer 4.23. Creatinine is 2.5 which is elevated for the patient. She has recently been switched to every other day Lasix dosing. Lactic acid 3.7. Total bilirubin 10.2. Chest x-ray does demonstrate a large right-sided pleural effusion. I did call and speak with Dr. Todd. He requests a transfusion of FFP and vitamin K. Patient will likely need thoracentesis. He is requesting ultrasound of the chest. Patient is updated in regards to this plan. I did call and speak with Dr. Lock who agreed to admit the patient. She is currently awaiting a bed on the floor - Lab Data Result diagrams: 10/14/21 13:26 10/14/21 13:26 Lab Results 10/14/21 10/14/21 10/14/21 Range/Units 13:26 13:26 13:26 WBC 6.0 (3.8-10.6) k/uL RBC 2.20 L (3.80-5.40) m/uL Hgb 9.2 L (11.4-16.0) gm/dL Hct 27.5 L (34.0-46.0) % MCV 125.1 H (80.0-100.0) fL MCH 41.9 H (25.0-35.0) pg MCHC 33.5 (31.0-37.0) g/dL RDW 17.3 H (11.5-15.5) % Plt Count 62 L (150-450) k/uL MPV 8.3 Neutrophils % 83 % Lymphocytes % 7 % Monocytes % 5 % Eosinophils % 3 % Basophils % 1 % Neutrophils # 4.9 (1.3-7.7) k/uL Lymphocytes # 0.4 L (1.0-4.8) k/uL Monocytes # 0.3 (0-1.0) k/uL Eosinophils # 0.2 (0-0.7) k/uL Basophils # 0.0 (0-0.2) k/uL Manual Slide Review Performed Hypochromasia Moderate Poikilocytosis Moderate Anisocytosis Slight Macrocytosis Marked A PT 15.2 H (9.0-12.0) sec INR 1.5 H (<1.2) APTT 32.4 H (22.0-30.0) sec D-Dimer 4.23 H (<0.60) mg/L FEU Sodium 135 L (137-145) mmol/L Potassium 4.2 (3.5-5.1) mmol/L Chloride 104 (98-107) mmol/L Carbon Dioxide 26 (22-30) mmol/L Anion Gap 5 mmol/L BUN 38 H (7-17) mg/dL Creatinine 2.54 H (0.52-1.04) mg/dL Est GFR (CKD-EPI)AfAm 22 (>60 ml/min/1.73 sqM) Est GFR (CKD-EPI)NonAf 19 (>60 ml/min/1.73 sqM) Glucose 133 H (74-99) mg/dL Lactic Ac Sepsis Rflx Plasma Lactic Acid Chris (0.7-2.0) mmol/L Calcium 8.6 (8.4-10.2) mg/dL Total Bilirubin 10.2 H (0.2-1.3) mg/dL Conjugated Bilirubin 1.6 H (0.0-0.3) mg/dL Unconjugated Bilirubin 5.5 H (0.0-1.1) mg/dL Delta Bilirubin 3.1 H (0.0-0.2) mg/dL AST 50 H (14-36) U/L ALT 24 (4-34) U/L Alkaline Phosphatase 107 (38-126) U/L Total Protein 6.0 L (6.3-8.2) g/dL Albumin 2.4 L (3.5-5.0) g/dL Lipase 199 (23-300) U/L 10/14/21 10/14/21 Range/Units 13:26 13:52 WBC (3.8-10.6) k/uL RBC (3.80-5.40) m/uL Hgb (11.4-16.0) gm/dL Hct (34.0-46.0) % MCV (80.0-100.0) fL MCH (25.0-35.0) pg MCHC (31.0-37.0) g/dL RDW (11.5-15.5) % Plt Count (150-450) k/uL MPV Neutrophils % % Lymphocytes % % Monocytes % % Eosinophils % % Basophils % % Neutrophils # (1.3-7.7) k/uL Lymphocytes # (1.0-4.8) k/uL Monocytes # (0-1.0) k/uL Eosinophils # (0-0.7) k/uL Basophils # (0-0.2) k/uL Manual Slide Review Hypochromasia Poikilocytosis Anisocytosis Macrocytosis PT (9.0-12.0) sec INR (<1.2) APTT (22.0-30.0) sec D-Dimer (<0.60) mg/L FEU Sodium (137-145) mmol/L Potassium (3.5-5.1) mmol/L Chloride (98-107) mmol/L Carbon Dioxide (22-30) mmol/L Anion Gap mmol/L BUN (7-17) mg/dL Creatinine (0.52-1.04) mg/dL Est GFR (CKD-EPI)AfAm (>60 ml/min/1.73 sqM) Est GFR (CKD-EPI)NonAf (>60 ml/min/1.73 sqM) Glucose (74-99) mg/dL Lactic Ac Sepsis Rflx Y Plasma Lactic Acid Chris 3.7 H* (0.7-2.0) mmol/L Calcium (8.4-10.2) mg/dL Total Bilirubin (0.2-1.3) mg/dL Conjugated Bilirubin (0.0-0.3) mg/dL Unconjugated Bilirubin (0.0-1.1) mg/dL Delta Bilirubin (0.0-0.2) mg/dL AST (14-36) U/L ALT (4-34) U/L Alkaline Phosphatase (38-126) U/L Total Protein (6.3-8.2) g/dL Albumin (3.5-5.0) g/dL Lipase (23-300) U/L - EKG Data EKG Comments: EKG demonstrates formal sinus rhythm with a ventricular rate of 95. NE interval 140. QRS 82. QTC 449. No acute ST segment elevations or depressions Disposition Clinical Impression: Shortness of breath, Cryptogenic cirrhosis of liver, Pleural effusion associated with hepatic disorder, Elevated INR Disposition: ADMITTED IP TO THIS HOSP Condition: Stable Is patient prescribed a controlled substance at d/c from ED?: No Decision to Admit Reason: Admit from EC Decision Date: 10/14/21 Decision Time: 15:22
[2021-10-14 15:01] LABS: Platelet Count 62 k/uL (150-450)
[2021-10-14] MEDS ORDERED: PHYTONADIONE ORAL 5 MG/5 ML ORAL.SYRG PO STA (15:19)
[2021-10-14] MEDS ORDERED: NALOXONE 0.4 MG/ML 1 ML VIAL IV PRN (15:22)
--- NOTE | 2021-10-14 16:06 | US ---
EXAMINATION TYPE: US chest DATE OF EXAM: 10/14/2021 COMPARISON: X ray CLINICAL HISTORY: pleural effusion right, thoracentesis. TECHNIQUE: Targeted ultrasound of the posterior lower right hemithorax EXAM MEASUREMENTS: Right Pleural Effusion pocket size: 14.6 cm Right skin surface to fluid distance: 2.2 cm Right side marked for possible thoracentesis outside the dept. Pulmonologists are able to review the images in the patient?s EMR. IMPRESSIONS: Right pleural effusion is demonstrated.
[2021-10-14 17:00] LABS: Amorphous Sediment,Urine Rare /hpf; Appearance,Urine Cloudy (Clear); Bacteria,Urine Occasional /hpf; Bilirubin,Urine 2+ (Negative); Blood,Urine Moderate (Negative); Color,Urine Dark Yellow; Glucose,Urine (UA) Negative (Negative); Hyaline Casts,Urine 8 /lpf (0-2); Ketones,Urine Negative (Negative); Leukocyte Esterase,Urine Moderate (Negative); Mucus,Urine Rare /hpf; Nitrite,Urine Negative (Negative); PH, Urine 5.5 (5.0-8.0); Protein,Urine Trace (Negative); RBC,Urine 1 /hpf (0-5); Specific Gravity,Urine 1.016 (1.001-1.035); Squamous Epithelial Cell,Urine 5 /hpf (0-4); WBC,Urine 11 /hpf (0-5)
[2021-10-14] MEDS: FUROSEMIDE 10 MG/ML 4 ML VIAL IV SCH (20:31)
[2021-10-14] MEDS: ONDANSETRON 4 MG/2 ML VIAL IVP PRN (20:31)
[2021-10-15 03:20] LABS: INR 1.5 (<1.2); Prothrombin Time 15.1 sec (9.0-12.0)
[2021-10-15 03:24] LABS: Anisocytosis Slight; Basophils % (A) 0 %; Eosinophils # (A) 0.1 k/uL (0-0.7); Eosinophils % (A) 2 %; HCT 24.8 % (34.0-46.0); HGB 8.3 gm/dL (11.4-16.0); Hypochromasia Moderate; Lymphocytes # (A) 0.5 k/uL (1.0-4.8); Lymphocytes % (A) 7 %; MCHC 33.3 g/dL (31.0-37.0); Macrocytosis Marked; Mean Platelet Volume 8.1; Monocytes # (A) 0.3 k/uL (0-1.0); Monocytes % (A) 4 %; Neutrophils # (A) 6.2 k/uL (1.3-7.7); Neutrophils % (A) 86 %; Poikilocytosis Moderate; RBC 1.94 m/uL (3.80-5.40); RDW 17.7 % (11.5-15.5); WBC 7.3 k/uL (3.8-10.6)
[2021-10-15 03:29] LABS: MCV 127.8 fL (80.0-100.0)
[2021-10-15 03:30] LABS: MCH 42.6 pg (25.0-35.0); Platelet Count 62 k/uL (150-450)
[2021-10-15 03:44] LABS: African American GFR (CKD) 23 (>60 ml/min/1.73 sqM); Anion Gap 6 mmol/L; Blood Urea Nitrogen 38 mg/dL (7-17); Calcium 8.6 mg/dL (8.4-10.2); Carbon Dioxide 27 mmol/L (22-30); Chloride 103 mmol/L (98-107); Glucose 131 mg/dL (74-99); Non-African American GFR(CKD) 20 (>60 ml/min/1.73 sqM); Potassium 3.9 mmol/L (3.5-5.1); Sodium 136 mmol/L (137-145)
[2021-10-15] MEDS: FUROSEMIDE 10 MG/ML 4 ML VIAL IV SCH ×2 (09:18→19:54)
[2021-10-15] MEDS: SPIRONOLACTONE 25 MG TAB PO SCH (09:18)
[2021-10-15] MEDS: ONDANSETRON 4 MG/2 ML VIAL IVP PRN ×2 (09:24→19:50)
--- NOTE | 2021-10-15 13:31 | P.HPIM ---
History of Present Illness H&P Date: 10/15/21 HISTORY OF PRESENT ILLNESS This is a 65-year-old female patient of Dr. Pearson with past medical history of cryptogenic cirrhosis of the liver under the care of Dr. Oleksandr Shelley and working with [facility] for possible liver transplant, migraine headaches, Covid 19 status post monoclonal antibodies August 2021. Patient states that she has had some shortness of breath since she was diagnosed with Covid but became much worse yesterday. She does complain of weight gain. She denies history of kidney disease. Patient presented to [facility] emergency center for evaluation for worsening shortness of breath lately. She is found to be afebrile, heart rate 106, blood pressure 127/58, pulse ox 95% on room air. EKG was a sinus rhythm with no acute ST changes. WBC 6.0, hemoglobin 9.2, platelet count 62. Sodium 135, potassium 4.2, chloride 104, CO2 26, BUN 38 creatinine 2.54. Blood sugar 113. D-dimer 4.23. INR 1.5. total bilirubin 10.2, conjugated bilirubin 1.6, unconjugated 5.5, delta 3.1. AST 80, ALT 24, alkaline phosphatase 107. Albumin 2.4. Lipase 199. Lactic acid 3.7 and peaked at 4.9, currently 1.9. Rotavirus PCR not detected. U rinalysis cloudy, blood moderate, leukoesterase moderate, squamous cells 5, bacteria occasional. Urine culture in progress. Chest x-ray reveals large right pleural effusion, there may be underlying p neumonia, atelectasis, cannot exclude mass. Chest ultrasound was marked on the right pocket 14.6 cm. Patient was admitted to the [facility] floor, started on IV Lasix 40 mg every 12 hours and consult with pulmonary medicine. Patient is status post 1 dose of vitamin K. REVIEW OF SYSTEMS Constitutional: No fever, no chills, no night sweats. No weight change. No weakness, fatigue or lethargy. No daytime sleepiness. EENT: No headache. No blurred vision or double vision, no loss of vision. No loss of Hearing, no ringing in the ears, no dizziness. No nasal drainage or congestion. No epistaxis. No sore throat. Lungs: Reports shortness of breath, cough, no sputum production. No wheezing. Cardiovascular: No chest pain, no lower extremity edema. No palpitations. No paroxysmal nocturnal dyspnea. No orthopnea. No lightheadedness or dizziness. No syncopal episodes. Abdominal: No abdominal pain. No nausea, vomiting. No diarrhea. No constipation. No bloody or tarry stools. No loss of appetite. Genitourinary: No dysuria, increased frequency, urgency. No urinary retention. Musculoskeletal: No myalgias. No muscle weakness, no gait dysfunction, no frequent falls. No back pain. No neck pain. Integumentary: No wounds, no lesions. No rash or pruritus. Reports chronic bruising. No change in hair or nails. Neurologic: No aphasia. No facial droop. No change in mentation. No head injury. No headache. No paralysis. No paresthesia. Psychiatric: No depression. No anxiety. No mood swings. Endocrine: No abnormal blood sugars. No weight change. No excessive sweating or thirst. No cold intolerance. SOCIAL HISTORY Patient is a lifelong nonsmoker, no alcohol use, no marijuana or illicit drug use. She is and lives alone. 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 Patient is independent and has no DME at home. FAMILY HISTORY Mther at age 64 from COPD. Father at age 45 from coronary artery disease. Patient does not have any brothers. She has one sister that has end- stage renal disease and diabetes status post amputation.. PHYSICAL EXAMINATION Gen: This is a 65-year-old female, resting in bed appears to be comfortable at rest. HEENT: Head is atraumatic, normocephalic. Pupils equal, round. Sclerae is anicteric. NECK: Supple. No JVD. No lymphadenopathy. No thyromegaly. LUNGS: Imaged on the right side to about mcc. No intercostal retractions. HEART: Regular rate and rhythm. No murmur. ABDOMEN: Soft. Bowel sounds are present. No masses. No tenderness. EXTREMITIES: No pedal edema. No calf tenderness. NEUROLOGICAL: Patient is awake, alert and oriented x3. Cranial nerves 2 through 12 are grossly intact. ASSESSMENT AND PLAN 1. Large right pleural effusion with possible underlying pneumonia, atel ectasis, mass not ruled out. Consult with pulmonary medicine. Continue IV Lasix 40 mg every 12 hours. Chest is marked for thoracentesis. 2. Acute kidney injury. Avoid nephrotoxic agents, monitor renal function, consult with nephrology. 3. Cryptogenic cirrhosis of the liver under the care of Dr. Oleksandr Shelley and [facility] for possible liver transplant. Continue Lasix, Aldactone 100 mg every 48 hours, Zofran as needed for nausea. 4. Elevated d-dimer. 5. Bicytopenia with anemia and thrombocytopenia secondary to underlying liver disease. Continue to monitor. 6. Coagulopathy secondary to underlying liver disease status post 1 dose of vitamin K. 7. Urinary tract infection. Patient started on ceftriaxone, await urine culture results. 8. DVT prophylaxis. SCDs and ELIE hose. 9. GI prophylaxis. Protonix. 10. History of recent Covid 19 in August 2021 status post monoclonal antibodies. Patient will be admitted to the hospital for a minimum of 2 night stay. DISCHARGE PLAN Home. Impression and plan of care have been directed as dictated by the signing physician. Maryellen Maya nurse practitioner acting as scribe for signing physician. Past Medical History Past Medical History: Hypertension, Liver Disease Additional Past Medical History / Comment(s): hx. migraine headaches,. CIRROHISIS OF LIVER-UNKNOWN ORIGIN. IBS. has received monoclonial antibodies for covid-19 History of Any Multi-Drug Resistant Organisms: None Reported Past Surgical History: Appendectomy, Tonsillectomy Additional Past Surgical History / Comment(s): D & C's Past Anesthesia/Blood Transfusion Reactions: No Reported Reaction Past Psychological History: No Psychological Hx Reported Smoking Status: Never smoker Past Alcohol Use History: None Reported Past Drug Use History: None Reported - Past Family History Mother Family Medical History: Cancer Medications and Allergies Home Medications Medication Instructions Recorded Confirmed Type Fluticasone Propionate [Flovent 1 puff INHALATION RT-BID 10/14/21 10/14/21 History Hfa 110 mcg] Furosemide [Lasix] 40 mg PO Q48H 10/14/21 10/14/21 History Ondansetron [Zofran] 4 mg PO Q8H PRN 10/14/21 10/14/21 History Spironolactone [Aldactone] 100 mg PO Q48H 10/14/21 10/14/21 History Allergies Allergy/AdvReac Type Severity Reaction Status Date / Time egg white Allergy Severe transischemic Uncoded 10/14/21 20:50 attacks Physical Exam Vitals: Vital Signs Temp Pulse Pulse Resp BP BP Pulse Ox 10/15/21 04:13 98.3 F 90 16 143/73 96 10/14/21 20:29 98.2 F 95 24 173/67 92 L 10/14/21 19:43 98.2 F 84 18 139/55 92 L 10/14/21 19:13 98.2 F 80 18 162/67 10/14/21 19:02 98.5 F 90 18 182/63 93 L 10/14/21 16:41 90 18 156/64 93 L 10/14/21 14:56 90 18 141/63 94 L 10/14/21 14:25 22 10/14/21 12:35 98.5 F 106 H 22 127/58 95 Intake and Output 10/14/21 10/15/21 10/15/21 22:59 06:59 14:59 Intake Total 342 Balance 342 Intake: Blood Product 342 Ffp 24 Cpd Unit 342 [id number] Other: Voiding Method Toilet # Voids 3 Weight 77.111 kg Results CBC & Chem 7: 10/15/21 02:57 10/15/21 02:57 Labs: Abnormal Lab Results - Last 24 Hours (Table) 10/14/21 10/14/21 10/14/21 Range/Units 13:26 13:26 13:26 RBC 2.20 L (3.80-5.40) m/uL Hgb 9.2 L (11.4-16.0) gm/dL Hct 27.5 L (34.0-46.0) % MCV 125.1 H (80.0-100.0) fL MCH 41.9 H (25.0-35.0) pg RDW 17.3 H (11.5-15.5) % Plt Count 62 L (150-450) k/uL Lymphocytes # 0.4 L (1.0-4.8) k/uL Macrocytosis Marked A PT 15.2 H (9.0-12.0) sec INR 1.5 H (<1.2) APTT 32.4 H (22.0-30.0) sec D-Dimer 4.23 H (<0.60) mg/L FEU Sodium 135 L (137-145) mmol/L BUN 38 H (7-17) mg/dL Creatinine 2.54 H (0.52-1.04) mg/dL Glucose 133 H (74-99) mg/dL Plasma Lactic Acid Chris (0.7-2.0) mmol/L Total Bilirubin 10.2 H (0.2-1.3) mg/dL Conjugated Bilirubin 1.6 H (0.0-0.3) mg/dL Unconjugated Bilirubin 5.5 H (0.0-1.1) mg/dL Delta Bilirubin 3.1 H (0.0-0.2) mg/dL AST 50 H (14-36) U/L Total Protein 6.0 L (6.3-8.2) g/dL Albumin 2.4 L (3.5-5.0) g/dL Urine Appearance (Clear) Urine Protein (Negative) Urine Blood (Negative) Urine Bilirubin (Negative) Ur Leukocyte Esterase (Negative) Urine WBC (0-5) /hpf Ur Squamous Epith Cells (0-4) /hpf Amorphous Sediment (None) /hpf Urine Bacteria (None) /hpf Hyaline Casts (0-2) /lpf Urine Mucus (None) /hpf 10/14/21 10/14/21 10/14/21 Range/Units 13:26 16:18 16:41 RBC (3.80-5.40) m/uL Hgb (11.4-16.0) gm/dL Hct (34.0-46.0) % MCV (80.0-100.0) fL MCH (25.0-35.0) pg RDW (11.5-15.5) % Plt Count (150-450) k/uL Lymphocytes # (1.0-4.8) k/uL Macrocytosis PT (9.0-12.0) sec INR (<1.2) APTT (22.0-30.0) sec D-Dimer (<0.60) mg/L FEU Sodium (137-145) mmol/L BUN (7-17) mg/dL Creatinine (0.52-1.04) mg/dL Glucose (74-99) mg/dL Plasma Lactic Acid Chris 3.7 H* 4.9 H* (0.7-2.0) mmol/L Total Bilirubin (0.2-1.3) mg/dL Conjugated Bilirubin (0.0-0.3) mg/dL Unconjugated Bilirubin (0.0-1.1) mg/dL Delta Bilirubin (0.0-0.2) mg/dL AST (14-36) U/L Total Protein (6.3-8.2) g/dL Albumin (3.5-5.0) g/dL Urine Appearance Cloudy H (Clear) Urine Protein Trace H (Negative) Urine Blood Moderate H (Negative) Urine Bilirubin 2+ H (Negative) Ur Leukocyte Esterase Moderate H (Negative) Urine WBC 11 H (0-5) /hpf Ur Squamous Epith Cells 5 H (0-4) /hpf Amorphous Sediment Rare H (None) /hpf Urine Bacteria Occasional H (None) /hpf Hyaline Casts 8 H (0-2) /lpf Urine Mucus Rare H (None) /hpf 10/14/21 10/14/21 10/15/21 Range/Units 19:54 23:35 02:57 RBC 1.94 L (3.80-5.40) m/uL Hgb 8.3 L (11.4-16.0) gm/dL Hct 24.8 L (34.0-46.0) % MCV 127.8 H (80.0-100.0) fL MCH 42.6 H (25.0-35.0) pg RDW 17.7 H (11.5-15.5) % Plt Count 62 L (150-450) k/uL Lymphocytes # 0.5 L (1.0-4.8) k/uL Macrocytosis Marked A PT (9.0-12.0) sec INR (<1.2) APTT (22.0-30.0) sec D-Dimer (<0.60) mg/L FEU Sodium (137-145) mmol/L BUN (7-17) mg/dL Creatinine (0.52-1.04) mg/dL Glucose (74-99) mg/dL Plasma Lactic Acid Chris 4.1 H* 3.5 H* (0.7-2.0) mmol/L Total Bilirubin (0.2-1.3) mg/dL Conjugated Bilirubin (0.0-0.3) mg/dL Unconjugated Bilirubin (0.0-1.1) mg/dL Delta Bilirubin (0.0-0.2) mg/dL AST (14-36) U/L Total Protein (6.3-8.2) g/dL Albumin (3.5-5.0) g/dL Urine Appearance (Clear) Urine Protein (Negative) Urine Blood (Negative) Urine Bilirubin (Negative) Ur Leukocyte Esterase (Negative) Urine WBC (0-5) /hpf Ur Squamous Epith Cells (0-4) /hpf Amorphous Sediment (None) /hpf Urine Bacteria (None) /hpf Hyaline Casts (0-2) /lpf Urine Mucus (None) /hpf 10/15/21 10/15/21 10/15/21 Range/Units 02:57 02:57 02:57 RBC (3.80-5.40) m/uL Hgb (11.4-16.0) gm/dL Hct (34.0-46.0) % MCV (80.0-100.0) fL MCH (25.0-35.0) pg RDW (11.5-15.5) % Plt Count (150-450) k/uL Lymphocytes # (1.0-4.8) k/uL Macrocytosis PT 15.1 H (9.0-12.0) sec INR 1.5 H (<1.2) APTT (22.0-30.0) sec D-Dimer (<0.60) mg/L FEU Sodium 136 L (137-145) mmol/L BUN 38 H (7-17) mg/dL Creatinine 2.50 H (0.52-1.04) mg/dL Glucose 131 H (74-99) mg/dL Plasma Lactic Acid Chris 2.4 H* (0.7-2.0) mmol/L Total Bilirubin (0.2-1.3) mg/dL Conjugated Bilirubin (0.0-0.3) mg/dL Unconjugated Bilirubin (0.0-1.1) mg/dL Delta Bilirubin (0.0-0.2) mg/dL AST (14-36) U/L Total Protein (6.3-8.2) g/dL Albumin (3.5-5.0) g/dL Urine Appearance (Clear) Urine Protein (Negative) Urine Blood (Negative) Urine Bilirubin (Negative) Ur Leukocyte Esterase (Negative) Urine WBC (0-5) /hpf Ur Squamous Epith Cells (0-4) /hpf Amorphous Sediment (None) /hpf Urine Bacteria (None) /hpf Hyaline Casts (0-2) /lpf Urine Mucus (None) /hpf Microbiology - Last 24 Hours (Table) 10/14/21 16:41 Urine Culture - Preliminary Urine,Voided Thrombosis Risk Factor Assmnt - Choose All That Apply Any of the Below Risk Factors Present?: Yes Each Factor Represents 1 point: Obesity (BMI >25), Swollen legs (current) Other Risk Factors: Yes Each Risk Factor Represents 2 Points: Age 61-74 years Other congenital or acquired thrombophilia - If yes, enter type in comment: No Thrombosis Risk Factor Assessment Total Risk Factor Score: 4 Thrombosis Risk Factor Assessment Level: Moderate Risk
[2021-10-15] MEDS ORDERED: LIDOCAINE 2% INJ 20 MG/ML (20 ML MDV) ONE (14:13)
--- NOTE | 2021-10-15 14:47 | XR ---
EXAMINATION TYPE: XR chest 1V portable DATE OF EXAM: 10/15/2021 COMPARISON: 10/14/2021 HISTORY: Post right thoracentesis TECHNIQUE: Single frontal view of the chest is obtained. FINDINGS: A coarsened interstitium with subsegmental consolidation and small right effusion markedly improved. No sizable pneumothorax. Hypertrophic and degenerative change of the spine. Diffuse osteop enia and arthropathy of the shoulders. IMPRESSION: 1. Near complete resolution of right-sided pleural effusion with no sizable pneumothorax. Coarsened i nterstitium can be seen with bronchitis or interstitial pneumonitis, venous congestion correlate clin ically.
--- NOTE | 2021-10-15 15:06 | P.CNPUL ---
History of Present Illness Consult date: 10/15/21 Requesting physician: Jimbo De Santiago Reason for consult: dyspnea, hypoxemia, pleural effusion, abnormal CXR/CT Chief complaint: Shortness of breath History of present illness: Pulmonary consult dated 10/15/2021. 65-year-old female who presents to the emergency department on October 14, complaining of shortness of breath. The patient has a history of cryptogenic cirrhosis. She's followed by one of the gastroenterologists here in town, and also followed by the liver group at [facility]. The patient is apparently being evaluated for possible liver transplantation. She states that over the last couple of days, she noticed increasing shortness of breath. She denied any cough, wheezing, or phlegm production. There was no fever or chills. No chest pain or chest discomfort. There is no nausea, vomiting, or diarrhea. The patient was evaluated in the emergency room, was found to have a large right-sided pleural effusion. Today, I did a right-sided thoracentesis. 2300 mL of yellow fluid was removed from the right pleural space. The patient's fluid was sent for analysis including chemistry, cytology, and microbiology. The patient should feel much much better. Her chest x-ray was ordered after the procedure. The patient has a history of migraine cephalgia, and hypertension, as well as cryptogenic cirrhosis. The patient denies any alcohol intake, and is not a smoker. She sees a Dr. Bauer at [facility]. She has no ALLERGIES. White count 7.3, hemoglobin 8.3, hematocrit 24.8, and platelet count 62,000. ET was 15.1 INR 1.5. Sodium 136, potassium 3.9, chlorides 103, CO2 27, anion gap 6, BUN 38, creatinine 2.50. Lactic acid was 3.5. Repeat was 2.4. Subsequent repeat was 1.9. Chest x-ray showed a large right-sided pleural effusion. Right chest ultrasound showed a pocket size of 14.6 cm. Repeat chest x-ray showed near complete resolution of the right-sided pleural effusion without any obvious pneumothorax. Review of Systems REVIEW OF SYSTEMS: CONSTITUTIONAL: [Negative.] NEUROLOGIC: [ Negative.] HEENT: [ Negative.] CARDIAC: [Negative.] PULMONARY: Shortness of breath for 3-4 days. GI: [Negative.] : [Negative.] RHEUMATOLOGIC: [ Negative.] IMMUNOLOGIC: [ Negative.] ENDOCRINE: [Negative. ] DERMATOLOGIC: [Negative.] Past Medical History Past Medical History: Hypertension, Liver Disease Additional Past Medical History / Comment(s): hx. migraine headaches,. CIRROHISIS OF LIVER-UNKNOWN ORIGIN. IBS. has received monoclonial antibodies for covid-19 History of Any Multi-Drug Resistant Organisms: None Reported Past Surgical History: Appendectomy, Tonsillectomy Additional Past Surgical History / Comment(s): D & C's Past Anesthesia/Blood Transfusion Reactions: No Reported Reaction Past Psychological History: No Psychological Hx Reported Smoking Status: Never smoker Past Alcohol Use History: None Reported Past Drug Use History: None Reported - Past Family History Mother Family Medical History: Cancer Medications and Allergies Home Medications Medication Instructions Recorded Confirmed Type Fluticasone Propionate [Flovent 1 puff INHALATION RT-BID 10/14/21 10/14/21 History Hfa 110 mcg] Furosemide [Lasix] 40 mg PO Q48H 10/14/21 10/14/21 History Ondansetron [Zofran] 4 mg PO Q8H PRN 10/14/21 10/14/21 History Spironolactone [Aldactone] 100 mg PO Q48H 10/14/21 10/14/21 History Allergies Allergy/AdvReac Type Severity Reaction Status Date / Time egg white Allergy Severe transischemic Uncoded 10/14/21 20:50 attacks Physical Exam Osteopathic Statement: *. No significant issues noted on an osteopathic structural exam other than those noted in the History and Physical/Consult. Vitals: Vital Signs Temp Pulse Pulse Resp BP BP Pulse Ox 10/15/21 11:33 98.3 F 86 18 151/68 98 10/15/21 09:16 87 139/73 10/15/21 04:13 98.3 F 90 16 143/73 96 10/14/21 20:29 98.2 F 95 24 173/67 92 L 10/14/21 19:43 98.2 F 84 18 139/55 92 L 10/14/21 19:13 98.2 F 80 18 162/67 10/14/21 19:02 98.5 F 90 18 182/63 93 L 10/14/21 16:41 90 18 156/64 93 L 10/14/21 14:56 90 18 141/63 94 L Intake and Output 10/14/21 10/15/21 10/15/21 22:59 06:59 14:59 Intake Total 342 Balance 342 Intake: Blood Product 342 Ffp 24 Cpd Unit 342 [id number] Other: Voiding Method Toilet Toilet # Voids 3 Weight 77.111 kg No acute distress, oriented 3. The patient is quite jaundiced. Nasal O2 in place at 2 L. HEENT examination is grossly unremarkable. Significant scleral icterus. Neck supple. Full range of motion. No adenopathy thyromegaly or neck vein distention. Cardiovascular examination reveals regular rhythm rate. S1-S2 normal. No S3 or S4. No discernible murmur noted. Heart rate 88 bpm. Lungs reveal severely diminished breath sounds at the right base. There is dullness at the right base. The left lung is clear. No crackles. No wheezes. Abdomen soft bowel sounds are heard. No masses or tenderness. Extremities are intact. No cyanosis clubbing or edema. Skin is without rash or lesion. Neurologic examination is brief but nonfocal. Results - Laboratory Findings CBC and BMP: 10/15/21 02:57 10/15/21 02:57 PT/INR, D-dimer PT 15.1 sec (9.0-12.0) H 10/15/21 02:57 INR 1.5 (<1.2) H 10/15/21 02:57 D-Dimer 4.23 mg/L FEU (<0.60) H 10/14/21 13:26 Abnormal lab findings: Abnormal Labs 10/14/21 10/14/21 10/14/21 13:26 13:26 13:26 RBC 2.20 L Hgb 9.2 L Hct 27.5 L MCV 125.1 H MCH 41.9 H RDW 17.3 H Plt Count 62 L Lymphocytes # 0.4 L Macrocytosis Marked A PT 15.2 H INR 1.5 H APTT 32.4 H D-Dimer 4.23 H Sodium 135 L BUN 38 H Creatinine 2.54 H Glucose 133 H Plasma Lactic Acid Chris Total Bilirubin 10.2 H Conjugated Bilirubin 1.6 H Unconjugated Bilirubin 5.5 H Delta Bilirubin 3.1 H AST 50 H Total Protein 6.0 L Albumin 2.4 L Urine Appearance Urine Protein Urine Blood Urine Bilirubin Ur Leukocyte Esterase Urine WBC Ur Squamous Epith Cells Amorphous Sediment Urine Bacteria Hyaline Casts Urine Mucus 10/14/21 10/14/21 10/14/21 13:26 16:18 16:41 RBC Hgb Hct MCV MCH RDW Plt Count Lymphocytes # Macrocytosis PT INR APTT D-Dimer Sodium BUN Creatinine Glucose Plasma Lactic Acid Chris 3.7 H* 4.9 H* Total Bilirubin Conjugated Bilirubin Unconjugated Bilirubin Delta Bilirubin AST Total Protein Albumin Urine Appearance Cloudy H Urine Protein Trace H Urine Blood Moderate H Urine Bilirubin 2+ H Ur Leukocyte Esterase Moderate H Urine WBC 11 H Ur Squamous Epith Cells 5 H Amorphous Sediment Rare H Urine Bacteria Occasional H Hyaline Casts 8 H Urine Mucus Rare H 10/14/21 10/14/21 10/15/21 19:54 23:35 02:57 RBC 1.94 L Hgb 8.3 L Hct 24.8 L MCV 127.8 H MCH 42.6 H RDW 17.7 H Plt Count 62 L Lymphocytes # 0.5 L Macrocytosis Marked A PT INR APTT D-Dimer Sodium BUN Creatinine Glucose Plasma Lactic Acid Chris 4.1 H* 3.5 H* Total Bilirubin Conjugated Bilirubin Unconjugated Bilirubin Delta Bilirubin AST Total Protein Albumin Urine Appearance Urine Protein Urine Blood Urine Bilirubin Ur Leukocyte Esterase Urine WBC Ur Squamous Epith Cells Amorphous Sediment Urine Bacteria Hyaline Casts Urine Mucus 10/15/21 10/15/21 10/15/21 02:57 02:57 02:57 RBC Hgb Hct MCV MCH RDW Plt Count Lymphocytes # Macrocytosis PT 15.1 H INR 1.5 H APTT D-Dimer Sodium 136 L BUN 38 H Creatinine 2.50 H Glucose 131 H Plasma Lactic Acid Chris 2.4 H* Total Bilirubin Conjugated Bilirubin Unconjugated Bilirubin Delta Bilirubin AST Total Protein Albumin Urine Appearance Urine Protein Urine Blood Urine Bilirubin Ur Leukocyte Esterase Urine WBC Ur Squamous Epith Cells Amorphous Sediment Urine Bacteria Hyaline Casts Urine Mucus - Diagnostic Findings Chest x-ray: image reviewed Assessment and Plan Assessment: Large right-sided pleural effusion causing shortness of breath, secondary to cryptogenic cirrhosis, and hypoalbuminemia. The patient underwent large-volume right-sided thoracentesis today, with 2.3 L being removed. History of cryptogenic cirrhosis, being followed by [facility]. History of hypertension. History of migraine cephalgia. Plan: Plan dated 10/15/2021. The patient underwent right-sided thoracentesis today. 2300 mL of yellow fluid was removed. The patient tolerated the procedure well. The follow-up chest x- ray showed near complete resolution of the right-sided pleural effusion. The fluid was sent to laboratory for analysis including cytology, chemistry, and microbiology. I would be very careful with any additional diuretics, as, she may become more volume depleted, with worsened renal function. We'll continue to follow. Prognosis is guarded. Time with Patient: Greater than 30
--- NOTE | 2021-10-15 15:18 | PCN ---
PROCEDURE NOTE PROCEDURE: Right-sided thoracentesis. PREOPERATIVE DIAGNOSIS: Right pleural effusion. POSTOPERATIVE DIAGNOSIS: Right pleural effusion. 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 Ewing. PROCEDURE DESCRIPTION: There was informed consent, and universal time-out was completed verifying correct patient, procedure, site, positioning , and implant (s) or special equipment if applicable. The patient's procedure took place in the patient's room, 517. Ultrasound guidance was used to pam the posterior right chest and appropriate fluid pocket was identified and marked. Patient was positioned, prepped and draped in usual sterile fashion. Lidocaine was used to anesthetize the area. A Thoracentesis catheter was introduced into the pleural space and fluid was removed. Blood loss was none. A chest x-ray was ordered to rule out pneumothorax. Total Fluid Removed: 2300 mL Color of Fluid: Yellow Fluid was sent for appropriate laboratory tests, including chemistry, cytology and microbiology. The patient tolerated the procedure well and there were no complications. MMODL / IJN: [id number] /
[2021-10-16 00:12] LABS: Appearance,BF Clear
[2021-10-16 06:48] LABS: Glucose, BF Source Thoracentesis Fluid; Glucose, Body Fluid 127 mg/dL; LDH, Body Fluid Source Thoracentesis Fluid; Total Protein, Body Fluid 684 mg/dL
[2021-10-16] MEDS: PANTOPRAZOLE 40 MG TABLET PO SCH (08:22)
[2021-10-16] MEDS: FUROSEMIDE 10 MG/ML 4 ML VIAL IV SCH ×2 (08:23→21:04)
[2021-10-16 10:39] LABS: Basophilic Stippling 2+; HCT 22.5 % (37.2-46.3); HGB 6.7 g/dL (12.0-15.0); MCH 39.6 pg (27.0-32.0); MCHC 29.8 g/dL (32.0-37.0); MCV 133.1 fL (80.0-97.0); Macrocytosis (M) 3+; Mean Platelet Volume 10.6 fL (9.5-12.2); Platelet Count 47 X 10*3/uL (140-440); RBC 1.69 X 10*6/uL (4.10-5.20); RDW 18.3 % (11.5-14.5); WBC 5.48 X 10*3/uL (4.50-10.00)
[2021-10-16 10:41] LABS: African American GFR (CKD) 23.9 (60.0-200.0); Albumin 2.3 g/dL (3.8-4.9); Albumin/Globulin Ratio 1.05 (1.60-3.17); Anion Gap 9.5 mmol/L (10.00-18.00); BUN/Creat Ratio 13.42 Ratio (12.00-20.00); Blood Urea Nitrogen 32.2 mg/dL (9.0-27.0); Calcium 8.2 mg/dL (8.7-10.3); Carbon Dioxide 27.5 mmol/L (20.0-27.5); Globulin 2.2 g/dL (1.6-3.3); Non-African American GFR(CKD) 20.6 (60.0-200.0); Potassium 3.9 mmol/L (3.5-5.5); Total Bilirubin 6.6 mg/dL (0.30-1.20); Total Protein 4.5 g/dL (6.2-8.2)
[2021-10-16] MEDS: ONDANSETRON 4 MG/2 ML VIAL IVP PRN (12:21)
--- NOTE | 2021-10-16 12:33 | P.PN ---
Subjective Progress Note Date: 10/16/21 HISTORY OF PRESENT ILLNESS This is a 65-year-old female patient of Dr. Pearson with past medical history of cryptogenic cirrhosis of the liver under the care of Dr. Oleksandr Shelley and working with [facility] for possible liver transplant, migraine headaches, Covid 19 status post monoclonal antibodies August 2021. Patient states that she has had some shortness of breath since she was diagnosed with Covid but became much worse yesterday. She does complain of weight gain. She denies history of kidney disease. Patient presented to [facility] emergency center for evaluation for worsening shortness of breath lately. She is found to be afebrile, heart rate 106, blood pressure 127/58, pulse ox 95% on room air. EKG was a sinus rhythm with no acute ST changes. WBC 6.0, hemoglobin 9.2, platelet count 62. Sodium 135, potassium 4.2, chloride 104, CO2 26, BUN 38 creatinine 2.54. Blood sugar 113. D-dimer 4.23. INR 1.5. total bilirubin 10.2, conjugated bilirubin 1.6, unconjugated 5.5, delta 3.1. AST 80, ALT 24, alkaline phosphatase 107. Albumin 2.4. Lipase 199. Lactic acid 3.7 and peaked at 4.9, currently 1.9. Rotavirus PCR not detected. Urinal ysis cloudy, blood moderate, leukoesterase moderate, squamous cells 5, bacteria occasional. Urine culture in progress. Chest x-ray reveals large right pleural effusion, there may be underlying pneumo jovana, atelectasis, cannot exclude mass. Chest ultrasound was marked on the right pocket 14.6 cm. Patient was admitted to the [facility] floor, started on IV Lasix 40 mg every 12 hours and consult with pulmonary medicine. Patient is status post 1 dose of vitamin K. 10/16: Patient seen and followed by pulmonary medicine status post right-sided thoracentesis with removal of 2300 ML's of yellow fluid completed yesterday. Fluid was clear, wbc's 77, RBCs less than 2000, glucose 127, protein 684, LDH 68. Cell count WBC 33%, lymphocytes 12%, monocytes 24%, eosinophils and basal cells negative. Mesothelial cells 31. Fluid cultures are in progress. Cytology report is pending Chest x-ray following the procedure showed near complete resolution of right-sided pleural effusion with no sizable pneumoth orax. Possible bronchitis or interstitial pneumonitis, venous congestion. Urine culture is positive for gram-negative bacilli. Patient has been afebrile, heart rate 81, blood pressure 135/63, pulse ox 95% on room air. Repeat hemoglobin is 6.7 and platelet count 47. Repeat CBC ordered for this afternoon. BUN 32 creatinine 2.4. Patient states that she feels significantly better from yesterday. A repeat chest x-ray will be ordered for tomorrow. She has a follow-up appointment with [facility] Dr. Bauer on October 24. REVIEW OF SYSTEMS Constitutional: No fever, no chills, no night sweats. No weight change. No weakness, fatigue or lethargy. No daytime sleepiness. EENT: No headache. No blurred vision or double vision, no loss of vision. No loss of Hearing, no ringing in the ears, no dizziness. No nasal drainage or congestion. No epistaxis. No sore throat. Lungs: Reports shortness of breath-improved, cough, no sputum production. No wheezing. Cardiovascular: No chest pain, no lower extremity edema. No palpitations. No paroxysmal nocturnal dyspnea. No orthopnea. No lightheadedness or dizziness. No syncopal episodes. Abdominal: No abdominal pain. No nausea, vomiting. No diarrhea. No constipation. No bloody or tarry stools. No loss of appetite. Genitourinary: No dysuria, increased frequency, urgency. No urinary retention. Musculoskeletal: No myalgias. No muscle weakness, no gait dysfunction, no frequent falls. No back pain. No neck pain. Integumentary: No wounds, no lesions. No rash or pruritus. Reports chronic bru ising. No change in hair or nails. Neurologic: No aphasia. No facial droop. No change in mentation. No head injury. No headache. No paralysis. No paresthesia. Psychiatric: No depression. No anxiety. No mood swings. Endocrine: No abnormal blood sugars. No weight change. No excessive sweating or thirst. No cold intolerance. PHYSICAL EXAMINATION Gen: This is a 65-year-old female, resting in bed appears to be comfortable at rest. HEENT: Head is atraumatic, normocephalic. Pupils equal, round. Sclerae is anicteric. NECK: Supple. No JVD. No lymphadenopathy. No thyromegaly. LUNGS: Essentially clear to auscultation, no wheezing. No intercostal retractions. HEART: Regular rate and rhythm. No murmur. ABDOMEN: Soft. Bowel sounds are present. No masses. No tenderness. EXTREMITIES: No pedal edema. No calf tenderness. NEUROLOGICAL: Patient is awake, alert and oriented x3. Cranial nerves 2 through 12 are grossly intact. ASSESSMENT AND PLAN 1. Large right pleural effusion secondary to liver disease with possible underlying pneumonia, atelectasis, mass not ruled out. Status post right-sided thoracentesis 10/14. Consult with pulmonary medicine appreciated. Continue IV Lasix 40 mg every 12 hours. Continue Aldactone 100 mg every 48 hours. 2. Acute kidney injury. Avoid nephrotoxic agents, monitor renal function, cons ult with nephrology. 3. Cryptogenic cirrhosis of the liver under the care of Dr. Oleksandr Shelley and [facility] for possible liver transplant. Continue Lasix, Aldactone 100 mg every 48 hours, Zofran as needed for nausea. 4. Elevated d-dimer. 5. Bicytopenia with anemia and thrombocytopenia secondary to underlying liver disease. Continue to monitor. Repeat CBC this afternoon. 6. Coagulopathy secondary to underlying liver disease status post 1 dose of vitamin K. 7. Urinary tract infection. Patient started on ceftriaxone, await urine culture results. 8. DVT prophylaxis. SCDs and ELIE hose. 9. GI prophylaxis. Protonix. 10. History of recent Covid 19 in August 2021 status post monoclonal antibodies. DISCHARGE PLAN Home. Impression and plan of care have been directed as dictated by the signing physician. Maryellen Maya nurse practitioner acting as scribe for signing physician. Objective - Vital Signs Vital signs: Vital Signs Temp 98.5 F 10/16/21 07:16 Pulse 81 10/16/21 07:16 Resp 18 10/16/21 07:16 BP 135/63 10/16/21 07:16 Pulse Ox 95 10/16/21 07:16 Intake & Output 10/15/21 10/16/21 10/16/21 18:59 06:59 18:59 Intake Total 540 Balance 540 Intake: Oral 540 Other: Voiding Method Toilet Toilet # Voids 2 - Labs CBC & Chem 7: 10/16/21 06:50 10/16/21 06:50 Labs: Microbiology - Last 24 Hours (Table) 10/15/21 14:30 Gram Stain - Preliminary Thoracic Fluid Body Fluid Culture - Preliminary 10/15/21 14:30 Acid Fast Bacilli Culture - Preliminary Thoracic Fluid 10/15/21 14:30 Fungal Culture - Preliminary Thoracic Fluid 10/14/21 16:41 Urine Culture - Preliminary Urine,Voided Gram Neg Bacilli
--- NOTE | 2021-10-16 13:22 | P.PN ---
Subjective Progress Note Date: 10/16/21 Principal diagnosis: Shortness of breath. Pulmonary consult dated 10/15/2021. 65-year-old female who presents to the emergency department on October 14, complaining of shortness of breath. The patient has a history of cryptogenic cirrhosis. She's followed by one of the gastroenterologists here in [facility], and also followed by the liver group at [facility]. The patient is apparently being evaluated for possible liver transplantation. She states that over the last couple of days, she noticed increasing shortness of breath. She denied any cough, wheezing, or phlegm production. There was no fever or chills. No chest pain or chest discomfort. There is no nausea, vomiting, or diarrhea. The patient was evaluated in the emergency room, was found to have a large right-sided pleural effusion. Today, I did a right-sided thoracentesis. 2300 mL of yellow fluid was removed from the right pleural space. The patient's fluid was sent for analysis including chemistry, cytology, and microbiology. The patient should feel much much better. Her chest x-ray was ordered after the procedure. The patient has a history of migraine cephalgia, and hypertension, as well as cryptogenic cirrhosis. The patient denies any alcohol intake, and is not a smoker. She sees a Dr. Bauer at [facility]. She has no ALLERGIES. White count 7.3, hemoglobin 8.3, hematocrit 24.8, and platelet count 62,000. ET was 15.1 INR 1.5. Sodium 136, potassium 3.9, chlorides 103, CO2 27, anion gap 6, BUN 38, creatinine 2.50. Lactic acid was 3.5. Repeat was 2.4. Subsequent repeat was 1.9. Chest x-ray showed a large right-sided pleural effusion. Right chest ultrasound showed a pocket size of 14.6 cm. Repeat chest x-ray showed near complete resolution of the right-sided pleural effusion without any obvious pneumothorax. Progress note dated 10/16/2021. 65-year-old female who presents to the emergency department with complaints of shortness of breath. The patient has a history of cryptogenic cirrhosis. The patient underwent a high volume thoracentesis yesterday. 2.3 L was removed from the right pleural space. The patient tolerated the procedure well and felt immediately improved. Currently, she is on 2 L nasal cannula. She's not receiving any IV fluids. She tells me that she may be discharged tomorrow. White count 5.48, heme him 6.7, hematocrit 22.5, and platelet count 47,000. Sodium 137, potassium 3.9, chlorides 100, CO2 28, anion gap 10, BUN 32, creatinine 2.4. The fluid analysis with suggest a transudate as a protein is only 684 mg, and the LDH is only 68. Fluid glucose 127. Hence, not likely infected. Objective - Vital Signs Vital signs: Vital Signs Temp 98.1 F 10/16/21 11:57 Pulse 81 10/16/21 11:57 Resp 18 10/16/21 11:57 BP 125/72 10/16/21 11:57 Pulse Ox 95 10/16/21 11:57 Intake & Output 10/15/21 10/16/21 10/16/21 18:59 06:59 18:59 Intake Total 540 Balance 540 Intake: Oral 540 Other: Voiding Method Toilet Toilet Toilet # Voids 2 - Exam No acute distress, oriented 3. The patient is quite jaundiced. Nasal O2 in place at 2 L. Saturations are 96%. HEENT examination is grossly unremarkable. Significant scleral icterus. Neck supple. Full range of motion. No adenopathy thyromegaly or neck vein distention. Cardiovascular examination reveals regular rhythm rate. S1-S2 normal. No S3 or S4. No discernible murmur noted. Heart rate 81 bpm. Lungs reveal mostly clear bilateral breath sounds. Scattered mild rhonchi. No wheezes or crackles. Dullness at the right base is much improved. Abdomen soft bowel sounds are heard. No masses or tenderness. Extremities are intact. No cyanosis clubbing or edema. Skin is without rash or lesion. Neurologic examination is brief but nonfocal. - Labs CBC & Chem 7: 10/16/21 06:50 10/16/21 06:50 Labs: Abnormal Lab Results - Last 24 Hours (Table) 10/16/21 10/16/21 Range/Units 06:50 06:50 RBC 1.69 L (4.10-5.20) X 10*6/uL Hgb 6.7 L* (12.0-15.0) g/dL Hct 22.5 L (37.2-46.3) % MCV 133.1 H (80.0-97.0) fL MCH 39.6 H (27.0-32.0) pg MCHC 29.8 L (32.0-37.0) g/dL RDW 18.3 H (11.5-14.5) % Plt Count 47 L (140-440) X 10*3/uL Plt Count Comment DECREASED A Absolute Nucleated RBC 0.02 H (0.00-0.00) X 10*3/uL NRBC/100 WBC Diff 0.4 H (0.0-0.0) /100 WBCS Anion Gap 9.50 L (10.00-18.00) mmol/L BUN 32.2 H (9.0-27.0) mg/dL Creatinine 2.4 H (0.6-1.5) mg/dL Est GFR (CKD-EPI)AfAm 23.9 L (60.0-200.0) Est GFR (CKD-EPI)NonAf 20.6 L (60.0-200.0) Calcium 8.2 L (8.7-10.3) mg/dL Total Bilirubin 6.60 H (0.30-1.20) mg/dL Total Protein 4.5 L (6.2-8.2) g/dL Albumin 2.3 L (3.8-4.9) g/dL Albumin/Globulin Ratio 1.05 L (1.60-3.17) g/dL Microbiology - Last 24 Hours (Table) 10/15/21 14:30 Gram Stain - Preliminary Thoracic Fluid Body Fluid Culture - Preliminary 10/15/21 14:30 Acid Fast Bacilli Culture - Preliminary Thoracic Fluid 10/15/21 14:30 Fungal Culture - Preliminary Thoracic Fluid 10/14/21 16:41 Urine Culture - Preliminary Urine,Voided Gram Neg Bacilli Assessment and Plan Assessment: Large right-sided pleural effusion causing shortness of breath, secondary to cryptogenic cirrhosis, and hypoalbuminemia. The patient underwent large-volume right-sided thoracentesis today, with 2.3 L being removed. History of cryptogenic cirrhosis, being followed by [facility]. History of hypertension. History of migraine cephalgia. Plan: Plan dated 10/15/2021. The patient underwent right-sided thoracentesis today. 2300 mL of yellow fluid was removed. The patient tolerated the procedure well. The follow-up chest x- ray showed near complete resolution of the right-sided pleural effusion. The fluid was sent to laboratory for analysis including cytology, chemistry, and microbiology. I would be very careful with any additional diuretics, as, she may become more volume depleted, with worsened renal function. We'll continue to follow. Prognosis is guarded. Plan dated 10/16/2021. The patient is doing much better. The fluid that was removed yesterday, 2300 mL, his a transudate. He likely relates to her underlying liver disease, hypoalbuminemia, and low colloid osmotic pressure. Current cytology and microbiology are pending. We'll continue to follow. I did mention to the patient that she may require additional thoracentesis in the future. I would be happy to drain her again if needed. Time with Patient: Less than 30
[2021-10-16 15:09] LABS: Anisocytosis Slight; HCT 26.7 % (34.0-46.0); HGB 8.4 gm/dL (11.4-16.0); Hypochromasia Marked; MCH 41.6 pg (25.0-35.0); MCHC 31.5 g/dL (31.0-37.0); MCV 132.2 fL (80.0-100.0); Macrocytosis Marked; Mean Platelet Volume 8.6; Poikilocytosis Moderate; RBC 2.02 m/uL (3.80-5.40); RDW 17.7 % (11.5-15.5); WBC 6.9 k/uL (3.8-10.6)
[2021-10-16 15:31] LABS: Platelet Count 62 k/uL (150-450)
--- NOTE | 2021-10-16 17:40 | P.NPCON ---
History of Present Illness - Reason for Consult acute renal failure - History of Present Illness Patient is a 65-year-old female with history of cryptogenic liver cirrhosis being followed by Dr. Croft and at [facility] for possible liver transplant. Patient denies any previous history of kidney diseases. She was admitted to the hospital with complaints of shortness of breath. Patient states that recently her diuretics were held as she had also with infection and of August 22 diuretics were restarted about 2 weeks prior to admission. Shortness of breath however continued to worsen. Patient was found to have a large right pleural effusion for which she had thoracentesis. No fever. Patient is maintained on room air with O2 sats at 90 O2 95%. Patient is maintained on IV Lasix 40 mg every 12 hours. Overall she states she is feeling better. Urine output is not charted M creatinine was 2.5 on admission and has been staying about the same and today it was at 2.4. His creatinine 1.1 in May 2021 and 1.8 on 09/20/2021 blood pressure has not been low. No history of use of NSAIDs Review of Systems As per HPI Past Medical History Past Medical History: Hypertension, Liver Disease Additional Past Medical History / Comment(s): hx. migraine headaches,. CIRROHISIS OF LIVER-UNKNOWN ORIGIN. IBS. has received monoclonial antibodies for covid-19 History of Any Multi-Drug Resistant Organisms: None Reported Past Surgical History: Appendectomy, Tonsillectomy Additional Past Surgical History / Comment(s): D & C's Past Anesthesia/Blood Transfusion Reactions: No Reported Reaction Past Psychological History: No Psychological Hx Reported Smoking Status: Never smoker Past Alcohol Use History: None Reported Past Drug Use History: None Reported - Past Family History Mother Family Medical History: Cancer Medications and Allergies Home Medications Medication Instructions Recorded Confirmed Type Fluticasone Propionate [Flovent 1 puff INHALATION RT-BID 10/14/21 10/14/21 Hist ory Hfa 110 mcg] Furosemide [Lasix] 40 mg PO Q48H 10/14/21 10/14/21 History Ondansetron [Zofran] 4 mg PO Q8H PRN 10/14/21 10/14/21 History Spironolactone [Aldactone] 100 mg PO Q48H 10/14/21 10/14/21 History Allergies Allergy/AdvReac Type Severity Reaction Status Date / Time egg white Allergy Severe transischemic Uncoded 10/14/21 20:50 attacks Physical Exam Vitals: Vital Signs Temp Pulse Resp BP Pulse Ox 10/16/21 11:57 98.1 F 81 18 125/72 95 10/16/21 08:56 18 10/16/21 07:16 98.5 F 81 18 135/63 95 10/16/21 04:17 98.0 F 78 16 125/68 94 L 10/15/21 20:22 98.3 F 84 16 132/70 90 L Intake and Output 10/16/21 10/16/21 10/16/21 06:59 14:59 22:59 Intake Total 540 Balance 540 Intake: Oral 540 Other: Voiding Method Toilet Patient is awake comfortable alert oriented 3. She is not in any acute distress. Examination of the heart S1 and S2 Examination lungs bilateral breath sounds are heard Examination of the abdomen shows soft abdomen nontender Examination of lower extremities shows edema 1+ bilaterally [employer] exam grossly intact Results - Lab Results Most recent lab results Calcium 8.2 mg/dL (8.7-10.3) L 10/16/21 06:50 10/16/21 14:57 10/16/21 06:50 Assessment and Plan Assessment: 1. Acute kidney injury most likely ATN currently nonoliguric. Severe anemia also contributing to the acute kidney injury. No nephrotoxic medications on board. Patient is volume overloaded therefore I will continue with the diuretics. Can decrease to once a day tomorrow. Continue to avoid high salt intake. Can also resume Aldactone. 2. Acute Kidney injury in August with creatinine of 1.8H had increased from 1.1 in May 2021. Not sure if this had improved UA shows trace protein and moderate blood. Check ultrasound of the kidneys. 3. Cryptogenic liver cirrhosis been followed at [facility] possible liver transplant. 4. Large right pleural effusion status post thoracentesis, 2.3 L of fluid was removed 5. Recent Covid infection in August 2021 Plan: 1. Decrease diuretics 2. Continue antibiotics for UTI 3. Continue Aldactone 4. Check iron profile 5. Check serum magnesium thank you for the consultation we'll continue to follow the patient with you during her hospitalization
--- NOTE | 2021-10-17 07:30 | XR ---
EXAMINATION TYPE: XR chest 2V DATE OF EXAM: 10/17/2021 COMPARISON: 10/15/2021 HISTORY: Shortness of breath TECHNIQUE: Frontal and lateral views of the chest are obtained. FINDINGS: Scattered senescent parenchymal changes noted. Hyperinflation compatible with COPD. Patchy right perihilar infiltrate persists without significant interval change. Heart size is stable. Mediastinal structures are stable and grossly unremarkable. No evidence for hilar prominence. Degenerative changes dorsal spine. IMPRESSION: 1. Patchy right perihilar infiltrate persists without significant interval change.
[2021-10-17] MEDS: PANTOPRAZOLE 40 MG TABLET PO SCH (08:17)
[2021-10-17] MEDS: FUROSEMIDE 10 MG/ML 4 ML VIAL IV SCH ×2 (08:26→10:36)
[2021-10-17] MEDS: SPIRONOLACTONE 25 MG TAB PO SCH (08:27)
[2021-10-17 09:43] LABS: African American GFR (CKD) 29.8 (60.0-200.0); Anion Gap 9.6 mmol/L (10.00-18.00); BUN/Creat Ratio 12.9 Ratio (12.00-20.00); Blood Urea Nitrogen 25.8 mg/dL (9.0-27.0); Calcium 8.2 mg/dL (8.7-10.3); Carbon Dioxide 28.4 mmol/L (20.0-27.5); Non-African American GFR(CKD) 25.7 (60.0-200.0); Potassium 3.3 mmol/L (3.5-5.5)
--- NOTE | 2021-10-17 10:17 | P.DS ---
Providers Date of admission: 10/14/21 15:28 Expected date of discharge: 10/17/21 Attending physician: Jimbo De Santiago MD Consults: 10/14/21 15:25 Consult Physician Urgent Consulting Provider: Beatrice Clarke Consult Reason/Comments: right sided pleural effusion Do you want consulting provider notified?: Already Contacted 10/15/21 10:00 Consult Physician Routine Consulting Provider: Iris Bronson Consult Reason/Comments: [place] Do you want consulting provider notified?: Yes Primary care physician: Saul Pearson [facility] Course: HISTORY OF PRESENT ILLNESS This is a 65-year-old female patient of Dr. Pearson with past medical history of cryptogenic cirrhosis of the liver under the care of Dr. Oleksandr Shelley and working with [facility] for possible liver transplant, migraine headaches, Covid 19 status post monoclonal antibodies August 2021. Patient states that she has had some shortness of breath since she was diagnosed with Covid but became much worse yesterday. She does complain of weight gain. She denies history of kidney disease. Patient presented to [facility] emergency center for evaluation for worsening shortness of breath lately. She is found to be afebrile, heart rate 106, blood pressure 127/58, pulse ox 95% on room air. EKG was a sinus rhythm with no acute ST changes. WBC 6.0, hemoglobin 9.2, platelet count 62. Sodium 135, potassium 4.2, chloride 104, CO2 26, BUN 38 creatinine 2.54. Blood sugar 113. D-dimer 4.23. INR 1.5. total bilirubin 10.2, conjugated bilirubin 1.6, unconjugated 5.5, delta 3.1. A ST 80, ALT 24, alkaline phosphatase 107. Albumin 2.4. Lipase 199. Lactic acid 3.7 and peaked at 4.9, currently 1.9. Rotavirus PCR not detected. Urinalysis cloudy, blood moderate, leukoesterase moderate, squamous cells 5, bacteria occasional. Urine culture in progress. Chest x-ray reveals large right pleural effusion, there may be underlying pneumonia, atelectasis, cannot exclude mass. Chest ultrasound was marked on the right pocket 14.6 cm. Patient was admitted to the [facility] floor, started on IV Lasix 40 mg every 12 hours and consult with pulmonary medicine. Patient is status post 1 dose of vitamin K. 10/16: Patient seen and followed by pulmonary medicine status post right-sided thoracentesis with removal of 2300 ML's of yellow fluid completed yesterday. Fluid was clear, wbc's 77, RBCs less than 2000, glucose 127, protein 684, LDH 68. Cell count WBC 33%, lymphocytes 12%, monocytes 24%, eosinophils and basal cells negative. Mesothelial cells 31. Fluid cultures are in progress. Cytology report is pending Chest x-ray following the procedure showed near complete resolution of right-sided pleural effusion with no sizable pneumothorax. Possible bronchitis or interstitial pneumonitis, venous congestion. Urine culture is positive for gram-negative bacilli. Patient has been afebrile, heart rate 81, blood pressure 135/63, pulse ox 95% on room air. Repeat hemoglobin is 6.7 and platelet count 47. Repeat CBC ordered for this afternoon. BUN 32 creatinine 2.4. Patient states that she feels significantly better from yesterday. A repeat chest x-ray will be ordered for tomorrow. She has a follow-up appointment with [facility] Dr. Bauer on October 24. 10/17: Patient has been seen by nephrology and is recommending decreasing diuretics, continue antibiotics and Aldactone, check iron profile and magnesium. W pleural fluid pathology is pending. We will decrease IV Lasix 40 mg once daily. Repeat chest x-ray reveals patchy right perihilar infiltrate persists without significant interval change. Urine culture finalized with E. coli pansensitive except for Bactrim. Patient will be continued on ceftriaxone and will transition to Levaquin at home to cover for UTI and pneumonia. Repeat hemoglobin was 8.4 in the morning. This morning blood work reveals potassium 3.3 and replaced. Creatinine 2.0. Renal ultrasound has been ordered by nephrology to be done prior to discharge. Patient has cleared for discharge from pulmonary medicine. DISCHARGE DIAGNOSES 1. Large right pleural effusion secondary to liver disease with possible underlying pneumonia, atelectasis, mass not ruled out. Status post right-sided thoracentesis 10/14. 2. Acute kidney injury. 3. Cryptogenic cirrhosis of the liver under the care of Dr. Oleksandr Shelley and [facility] for possible liver transplant. 4. Elevated d-dimer. 5. Bicytopenia with anemia and thrombocytopenia secondary to underlying liver disease. 6. Coagulopathy secondary to underlying liver disease status post 1 dose of vitamin K and status post 1 unit of fresh frozen plasma. 7. E. coli Urinary tract infection. Continue patient on ceftriaxone. 8. History of recent Covid 19 in August 2021 status post monoclonal antibodies. DISCHARGE PLAN Home. Greater than 35 minutes was utilized and coordinating patient's discharge. Impression and plan of care have been directed as dictated by the signing physician. Maryellen Maya nurse practitioner acting as scribe for signing physician. Patient Condition at Discharge: Good Plan - Discharge Summary Discharge Rx Participant: Yes New Discharge Prescriptions: New Spironolactone [Aldactone] 50 mg PO DAILY #30 tab Levofloxacin [Levaquin] 250 mg PO DAILY 7 Days #7 tablet Continue Ondansetron [Zofran] 4 mg PO Q8H PRN PRN Reason: Nausea Fluticasone Propionate [Flovent Hfa 110 mcg] 1 puff INHALATION RT-BID Changed Furosemide [Lasix] 40 mg PO DAILY #0 Discontinued Spironolactone [Aldactone] 100 mg PO Q48H Discharge Medication List Fluticasone Propionate [Flovent Hfa 110 mcg] 1 puff INHALATION RT-BID 10/14/21 [History] Ondansetron [Zofran] 4 mg PO Q8H PRN 10/14/21 [History] Furosemide [Lasix] 40 mg PO DAILY #0 10/17/21 [Rx] Levofloxacin [Levaquin] 250 mg PO DAILY 7 Days #7 tablet 10/17/21 [Rx] Spironolactone [Aldactone] 50 mg PO DAILY #30 tab 10/17/21 [Rx] Follow up Appointment(s)/Referral(s): Kevon Ewing DO [Doctor of Osteopathic Medicine] - 11/12/21 2:30 pm Iris Bronson MD [STAFF PHYSICIAN] - 2 Weeks Saul Pearson MD [Primary Care Provider] - 1 Week (patient will have to call and schedule own appt.) Ambulatory/Diagnostic Orders: Complete Blood Count w/diff [LAB.AMB] Location: None Selected Comprehensive Metabolic Panel [LAB.AMB] Location: None Selected Discharge Disposition: HOME SELF-CARE
--- NOTE | 2021-10-17 11:12 | P.PN ---
Subjective Progress Note Date: 10/17/21 Principal diagnosis: Shortness of breath. Pulmonary consult dated 10/15/2021. 65-year-old female who presents to the emergency department on October 14, complaining of shortness of breath. The patient has a history of cryptogenic cirrhosis. She's followed by one of the gastroenterologists here in [facility], and also followed by the liver group at [facility]. The patient is apparently being evaluated for possible liver transplantation. She states that over the last couple of days, she noticed increasing shortness of breath. She denied any cough, wheezing, or phlegm production. There was no fever or chills. No chest pain or chest discomfort. There is no nausea, vomiting, or diarrhea. The patient was evaluated in the emergency room, was found to have a large right-sided pleural effusion. Today, I did a right-sided thoracentesis. 2300 mL of yellow fluid was removed from the right pleural space. The patient's fluid was sent for analysis including chemistry, cytology, and microbiology. The patient should feel much much better. Her chest x-ray was ordered after the procedure. The patient has a history of migraine cephalgia, and hypertension, as well as cryptogenic cirrhosis. The patient denies any alcohol intake, and is not a smoker. She sees a Dr. Bauer at [facility]. She has no ALLERGIES. White count 7.3, hemoglobin 8.3, hematocrit 24.8, and platelet count 62,000. ET was 15.1 INR 1.5. Sodium 136, potassium 3.9, chlorides 103, CO2 27, anion gap 6, BUN 38, creatinine 2.50. Lactic acid was 3.5. Repeat was 2.4. Subsequent repeat was 1.9. Chest x-ray showed a large right-sided pleural effusion. Right chest ultrasound showed a pocket size of 14.6 cm. Repeat chest x-ray showed near complete resolution of the right-sided pleural effusion without any obvious pneumothorax. Progress note dated 10/16/2021. 65-year-old female who presents to the emergency department with complaints of shortness of breath. The patient has a history of cryptogenic cirrhosis. The patient underwent a high volume thoracentesis yesterday. 2.3 L was removed from the right pleural space. The patient tolerated the procedure well and felt immediately improved. Currently, she is on 2 L nasal cannula. She's not receiving any IV fluids. She tells me that she may be discharged tomorrow. White count 5.48, heme him 6.7, hematocrit 22.5, and platelet count 47,000. Sodium 137, potassium 3.9, chlorides 100, CO2 28, anion gap 10, BUN 32, creatinine 2.4. The fluid analysis with suggest a transudate as a protein is only 684 mg, and the LDH is only 68. Fluid glucose 127. Hence, not likely infected. Progress note dated 10/17/2021. 65-year-old female who presented with complaints of shortness of breath. The patient has a history of cryptogenic cirrhosis and had a large right-sided pleural effusion. I performed a thoracentesis, and 2.3 L of thin transudate of fluid was removed from the right pleural space. The patient felt much better almost immediately. The patient is currently on room air. She's not receiving any IV fluids. She is followed by a liver specialist that [facility]. Current laboratory data includes a sodium 137, potassium 3.3, chlorides 99, CO2 28, anion gap 10, BUN 26, creatinine 2.0. Urine was positive for Escherichia coli. Fluid analysis including cytology, and microbiology, currently pending or negative. Objective - Vital Signs Vital signs: Vital Signs Temp 98.3 F 10/17/21 07:28 Pulse 79 10/17/21 08:58 Resp 18 10/17/21 08:58 BP 111/62 10/17/21 07:28 Pulse Ox 95 10/17/21 07:28 Intake & Output 10/16/21 10/17/21 10/17/21 18:59 06:59 18:59 Other: Voiding Method Toilet Toilet Toilet # Voids 6 4 - Exam No acute distress, oriented 3. The patient is quite jaundiced. The patient is on room air. Saturations are 97%. HEENT examination is grossly unremarkable. Significant scleral icterus. Neck supple. Full range of motion. No adenopathy thyromegaly or neck vein distention. Cardiovascular examination reveals regular rhythm rate. S1-S2 normal. No S3 or S4. No discernible murmur noted. Heart rate 79 bpm. Lungs reveal mostly clear bilateral breath sounds. Scattered mild rhonchi. No wheezes or crackles. Dullness at the right base is much improved. Abdomen soft bowel sounds are heard. No masses or tenderness. Extremities are intact. No cyanosis clubbing or edema. Skin is without rash or lesion. Neurologic examination is brief but nonfocal. - Labs CBC & Chem 7: 10/16/21 14:57 10/17/21 06:09 Labs: Abnormal Lab Results - Last 24 Hours (Table) 10/16/21 10/17/21 Range/Units 14:57 06:09 RBC 2.02 L (3.80-5.40) m/uL Hgb 8.4 L (11.4-16.0) gm/dL Hct 26.7 L (34.0-46.0) % MCV 132.2 H (80.0-100.0) fL MCH 41.6 H (25.0-35.0) pg RDW 17.7 H (11.5-15.5) % Plt Count 62 L (150-450) k/uL Macrocytosis Marked A Potassium 3.3 L (3.5-5.5) mmol/L Carbon Dioxide 28.4 H (20.0-27.5) mmol/L Anion Gap 9.60 L (10.00-18.00) mmol/L Creatinine 2.0 H (0.6-1.5) mg/dL Est GFR (CKD-EPI)AfAm 29.8 L (60.0-200.0) Est GFR (CKD-EPI)NonAf 25.7 L (60.0-200.0) Calcium 8.2 L (8.7-10.3) mg/dL Microbiology - Last 24 Hours (Table) 10/15/21 14:30 Gram Stain - Preliminary Thoracic Fluid Body Fluid Culture - Preliminary 10/14/21 16:41 Urine Culture - Final Urine,Voided Escherichia coli 10/15/21 14:30 Acid Fast Bacilli Smear - Final Thoracic Fluid Acid Fast Bacilli Culture - Preliminary Assessment and Plan Assessment: Large right-sided pleural effusion causing shortness of breath, secondary to cryptogenic cirrhosis, and hypoalbuminemia. The patient underwent large-volume right-sided thoracentesis today, with 2.3 L being removed. History of cryptogenic cirrhosis, being followed by [facility]. History of hypertension. History of migraine cephalgia. Plan: Plan dated 10/15/2021. The patient underwent right-sided thoracentesis today. 2300 mL of yellow fluid was removed. The patient tolerated the procedure well. The follow-up chest x- ray showed near complete resolution of the right-sided pleural effusion. The fluid was sent to laboratory for analysis including cytology, chemistry, and microbiology. I would be very careful with any additional diuretics, as, she may become more volume depleted, with worsened renal function. We'll continue to follow. Prognosis is guarded. Plan dated 10/16/2021. The patient is doing much better. The fluid that was removed yesterday, 2300 mL, his a transudate. He likely relates to her underlying liver disease, hypoalbuminemia, and low colloid osmotic pressure. Current cytology and microbiology are pending. We'll continue to follow. I did mention to the patient that she may require additional thoracentesis in the future. I would be happy to drain her again if needed. Plan dated 10/17/2021. The patient is doing much better. Today's chest x-ray reveals a pseudotumor in the right midlung. This is actually fluid that is trapped in the minor fissure. The patient does not have pneumonia. I would like to see the patient in my office for follow-up once she is discharged. She may require follow-up thoracentesis. I suspect with her chronic liver disease and low albumin levels, she will reaccumulate a right-sided pleural effusion. Thus far, fluid analysis with suggest a transudate. Fluid microbiology and cytology are pending. Time with Patient: Less than 30
[2021-10-17 11:19] VITALS: BP 102/58; PULSE 77; RESP 16; TEMP 98.5
[2021-10-17] MEDS ORDERED: POTASSIUM CHLORIDE ER 20 MEQ TAB.ER PO STA (12:10)
--- NOTE | 2021-10-17 12:10 | P.PN ---
Subjective Principal diagnosis: Patient is seen for follow-up for acute kidney injury. She had evidence of significant right pleural effusion status post thoracentesis. Patient was also volume overloaded and has been diuresed. Serum creatinine has improved to 2.0 today from 2.4 yesterday. Respiratory symptoms are significantly improved. Darryl cerna continues to have some lower extremity edema. Objective - Vital Signs Vital signs: Vital Signs Temp 98.5 F 10/17/21 11:17 Pulse 77 10/17/21 11:17 Resp 16 10/17/21 11:17 BP 102/58 10/17/21 11:17 Pulse Ox 97 10/17/21 11:17 Intake & Output 10/16/21 10/17/21 10/17/21 18:59 06:59 18:59 Other: Voiding Method Toilet Toilet Toilet # Voids 6 4 - Exam Patient is awake comfortable alert oriented 3. Examination of the heart S1 and S2 Examination lungs bilateral breath sounds are heard Abdomen is soft nontender Examination lower extremity shows edema 1+ bilaterally [employer] exam is grossly intact - Labs CBC & Chem 7: 10/16/21 14:57 10/17/21 06:09 Labs: Abnormal Lab Results - Last 24 Hours (Table) 10/16/21 10/17/21 Range/Units 14:57 06:09 RBC 2.02 L (3.80-5.40) m/uL Hgb 8.4 L (11.4-16.0) gm/dL Hct 26.7 L (34.0-46.0) % MCV 132.2 H (80.0-100.0) fL MCH 41.6 H (25.0-35.0) pg RDW 17.7 H (11.5-15.5) % Plt Count 62 L (150-450) k/uL Macrocytosis Marked A Potassium 3.3 L (3.5-5.5) mmol/L Carbon Dioxide 28.4 H (20.0-27.5) mmol/L Anion Gap 9.60 L (10.00-18.00) mmol/L Creatinine 2.0 H (0.6-1.5) mg/dL Est GFR (CKD-EPI)AfAm 29.8 L (60.0-200.0) Est GFR (CKD-EPI)NonAf 25.7 L (60.0-200.0) Calcium 8.2 L (8.7-10.3) mg/dL Microbiology - Last 24 Hours (Table) 10/15/21 14:30 Gram Stain - Preliminary Thoracic Fluid Body Fluid Culture - Preliminary 10/14/21 16:41 Urine Culture - Final Urine,Voided Escherichia coli 10/15/21 14:30 Acid Fast Bacilli Smear - Final Thoracic Fluid Acid Fast Bacilli Culture - Preliminary Assessment and Plan Assessment: 1. Acute kidney injury most likely ATN currently nonoliguric. Severe anemia also contributing to the acute kidney injury. No nephrotoxic medications on board. Patient is volume overloaded therefore I will continue with the diuretics. Can decrease to once a day tomorrow. Continue to avoid high salt intake. Can also continue Aldactone. 2. Acute Kidney injury in August with creatinine of 1.8H had increased from 1.1 in May 2021. Not sure if this had improved UA shows trace protein and moderate blood. Check ultrasound of the kidneys. 3. Cryptogenic liver cirrhosis been followed at [facility] possible liver transplant. 4. Large right pleural effusion status post thoracentesis, 2.3 L of fluid was removed 5. Recent Covid infection in August 2021 Plan: 1. Decrease diuretics, switch to by mouth today if patient is discharged. 2. Continue antibiotics for UTI 3. Continue Aldactone 4. Check iron profile 5. Check serum magnesium 6. Check ultrasound of the kidneys prior to discharge. 7. Follow-up as outpatient in about 2 weeks' time. 8. Replace potassium
--- NOTE | 2021-10-17 13:07 | US ---
EXAMINATION TYPE: US kidneys/renal and bladder DATE OF EXAM: 10/17/2021 COMPARISON: NONE CLINICAL HISTORY: RF. renal failure, known cirrhosis EXAM MEASUREMENTS: Right Kidney: 8.0 x 3.4 x 4.5 cm Left Kidney: 10.6 x 3.8 x 5.1 cm Right Kidney: limited views appear wnl Left Kidney: No hydronephrosis or masses seen Bladder: wnl right sided pleural effusion There is no evidence for hydronephrosis at this point in time. No nephrolithiasis is seen. No dwayne s are identified. The urinary bladder is anechoic. Bilateral ureteral jets are seen. IMPRESSION: Incidental small right-sided pleural effusion.
[2021-10-17 14:00] LABS: % Iron Saturation 53.15 (12.00-45.00); Magnesium 1.6 mg/dL (1.5-2.4)
== END 2021-10-17 12:50 | disposition home or self-care (01) | DRG 432 ==
LOC: EC 12:33 → 5NMEDONC 15:28
PROVIDERS: ADMIT Internal Medicine; ATTEND Internal Medicine
PROC: 0W993ZZ Drainage of Right Pleural Cavity, Percutaneous Approach (ICD-10-PCS; principal; 2021-10-15)
DX: K74.69 Other cirrhosis of liver (principal); N17.0 Acute kidney failure with tubular necrosis; D68.9 Coagulation defect, unspecified; J90 Pleural effusion, not elsewhere classified; N39.0 Urinary tract infection, site not specified; B96.20 Unspecified Escherichia coli [E. coli] as the cause of diseases classified elsewhere; Z20.822 Contact with and (suspected) exposure to COVID-19; D64.9 Anemia, unspecified; D69.59 Other secondary thrombocytopenia; E87.70 Fluid overload, unspecified; E88.09 Other disorders of plasma-protein metabolism, not elsewhere classified; I10 Essential (primary) hypertension; R09.02 Hypoxemia; Z79.51 Long term (current) use of inhaled steroids; Z79.899 Other long term (current) drug therapy; Z86.16 Personal history of COVID-19; Z83.3 Family history of diabetes mellitus; Z82.5 Family history of asthma and other chronic lower respiratory diseases; Z82.49 Family history of ischemic heart disease and other diseases of the circulatory system; Z76.82 Awaiting organ transplant status; G43.909 Migraine, unspecified, not intractable, without status migrainosus; K58.9 Irritable bowel syndrome, unspecified; R79.89 Other specified abnormal findings of blood chemistry
CPT/HCPCS: 36415; 71045; 71046; 76604; 76770; 80048; 80053; 81001; 82248; 82728; 82945; 83540; 83550; 83605; 83615; 83690; 83735; 84157; 85025; 85027; 85379; 85610; 85730; 86850; 86900; 86901; 87070; 87077; 87086; 87102; 87116; 87186; 87205; 87206; 87252; 87496; 87498; 87502; 87529; 87634; 87635; 87798; 88108; 88305; 89050; 93005; 99285

== ENCOUNTER 2021-11-14 08:47 | Day surgery (SDC) | payer BC ==
[2021-11-14 09:47] LABS: Anisocytosis Slight; Basophils % (A) 1 %; Eosinophils # (A) 0.3 k/uL (0-0.7); Eosinophils % (A) 6 %; HCT 28.1 % (34.0-46.0); HGB 9.2 gm/dL (11.4-16.0); Hypochromasia Moderate; Lymphocytes # (A) 0.7 k/uL (1.0-4.8); Lymphocytes % (A) 12 %; MCHC 32.8 g/dL (31.0-37.0); MCV 131.4 fL (80.0-100.0); Macrocytosis Marked; Mean Platelet Volume 8.4; Monocytes # (A) 0.3 k/uL (0-1.0); Monocytes % (A) 6 %; Neutrophils % (A) 73 %; Poikilocytosis Moderate; RBC 2.14 m/uL (3.80-5.40); RDW 18.3 % (11.5-15.5); WBC 5.5 k/uL (3.8-10.6)
[2021-11-14 09:51] LABS: MCH 43.1 pg (25.0-35.0)
[2021-11-14 09:53] LABS: Platelet Count 73 k/uL (150-450)
[2021-11-14 09:57] LABS: INR 1.4 (<1.2); Prothrombin Time 14.5 sec (9.0-12.0)
[2021-11-14 09:58] VITALS: RESP 18; TEMP 98.1
[2021-11-14 10:00] LABS: Albumin 2.4 g/dL (3.5-5.0); Calcium 8.5 mg/dL (8.4-10.2); Potassium 3.2 mmol/L (3.5-5.1); Total Bilirubin 11.9 mg/dL (0.2-1.3); Total Protein 6.3 g/dL (6.3-8.2)
--- NOTE | 2021-11-14 11:14 | XR ---
EXAMINATION TYPE: XR chest 1V portable DATE OF EXAM: 11/14/2021 COMPARISON: X-ray dated 11/12/2021 HISTORY: Postthoracentesis TECHNIQUE: Single frontal view of the chest is obtained. FINDINGS: Significant interval reduction of previously seen large right-sided pleural effusion with aeration of the superior aspect of the right lung. Residual moderate right-sided pleural effusion is still appre ciated. No evidence of pneumothorax. Suspected atelectasis/partial collapse adjacent to the right pleural effusion. No significant left pu lmonary infiltration. No left-sided pleural effusion. No gross cardiomegaly. No aggressive bone lesio n. IMPRESSION: Interval thoracentesis, no obvious pneumothorax identified.
[2021-11-14 11:43] VITALS: BP 137/70; PULSE 78
--- NOTE | 2021-11-14 12:07 | US ---
Ultrasound-guided therapeutic thoracentesis DATE OF EXAM: 11/14/2021 CLINICAL HISTORY: Pleural effusion The procedure was discussed with the patient. The risks, complications, benefits, and alternatives we re discussed and any questions were answered. Informed consent was obtained. The patient was placed supine on the ultrasound table and prepped and draped in the usual sterile fas hion. All elements of maximal barrier and sterile technique were utilized. Under ultrasound guidance, access into the pleural space was obtained, via the thoracentesis catheter system and direct ultrasound guidance. Ap proximately 1.2 liters of straw-colored fluid was removed. The patient was stable throughout the procedure and remained stable upon discharge from Department of Radiology. IMPRESSION: 1. Successful therapeutic thoracentesis under ultrasound guidance.
== END 2021-11-14 11:50 | disposition home or self-care (01) ==
LOC: RADPROMAIN 08:47
PROVIDERS: ATTEND Internal Medicine Critical Care Medicine
DX: J90 Pleural effusion, not elsewhere classified (principal); K74.69 Other cirrhosis of liver
CPT/HCPCS: 32555; 36415; 71045; 80053; 85025; 85610

== ENCOUNTER 2021-11-20 12:28 | Inpatient (IN) | payer BC ==
--- NOTE | 2021-11-20 13:49 | ED ---
General Adult HPI - General Chief complaint: Shortness of Breath Stated complaint: Abd pain Time Seen by Provider: 11/20/21 13:34 Source: patient Mode of arrival: wheelchair Limitations: no limitations - History of Present Illness Initial comments: 66-year-old female with a past medical history of cytogenic cirrhosis, hypertension presents to the emergency room for a chief complaint of not feeling well. Patient states that for the past couple days she has been short of breath. Patient reports she had a thoracentesis about a week ago. Upon review of the records 1.2 L was removed on 11/14/21. Patient states that over the past 2 days she has developed shortness of breath. Feels like there is fluid in her lungs. She is also had nausea vomiting diarrhea and has felt generally ill. She hasnt been able to keep much fluids or solids down. Patient has no other complaints at this time including chest pain, abdominal pain, headache, or visual changes. - Related Data Home Medications Medication Instructions Recorded Confirmed Fluticasone Propionate [Flovent 1 puff INHALATION RT-BID 10/14/21 11/20/21 Hfa 110 mcg] Furosemide [Lasix] 10 mg PO Q48H 11/12/21 11/20/21 Allergies Allergy/AdvReac Type Severity Reaction Status Date / Time egg white AdvReac Severe transischemic Uncoded 11/20/21 14:15 attacks Review of Systems ROS Statement: Those systems with pertinent positive or pertinent negative responses have been documented in the HPI. ROS Other: All systems not noted in ROS Statement are negative. Past Medical History Past Medical History: Hypertension Additional Past Medical History / Comment(s): hx. migraine headaches,. CIRROHISIS OF LIVER-UNKNOWN ORIGIN History of Any Multi-Drug Resistant Organisms: None Reported Past Surgical History: Appendectomy, Tonsillectomy Additional Past Surgical History / Comment(s): D & C's Past Anesthesia/Blood Transfusion Reactions: No Reported Reaction Past Psychological History: No Psychological Hx Reported Smoking Status: Never smoker Past Alcohol Use History: None Reported Past Drug Use History: None Reported - Past Family History Mother Family Medical History: Cancer General Exam Limitations: no limitations General appearance: alert, in no apparent distress Head exam: Present: atraumatic Eye exam: Present: normal appearance, PERRL, EOMI. Absent: scleral icterus, conjunctival injection, nystagmus ENT exam: Present: normal exam, mucous membranes moist Neck exam: Present: normal inspection, full ROM. Absent: tenderness Respiratory exam: Present: decreased breath sounds (on R side), other (mild tachypnea). Absent: accessory muscle use Cardiovascular Exam: Present: regular rate, normal rhythm, normal heart sounds GI/Abdominal exam: Present: soft, normal bowel sounds. Absent: distended, tenderness Neurological exam: Present: alert Course Vital Signs 11/20/21 12:47 Temperature 97.9 F Pulse Rate 96 Respiratory 16 Rate Blood Pressure 134/77 O2 Sat by Pulse 94 L Oximetry Medical Decision Making - Medical Decision Making vitals are stable. Patient is 94% on room air. HPI and physical exam as documented. Chest x-ray does show worsening right lung opacification with a right lung expansion suggesting recurrent large pleural effusion. Mild to moderate central left mid lung edema and/or infiltrate. CMP does show chronic kidney disease as well as chronic hyperbilirubinemia. CBC shows chronic changes. Thrombocytopenia of 89. INR 1.6. Case was discussed with Dr. De Santiago as I found her in the hallway, does accept the admission. remaining labs pending at time of sign out to dr kilgore. call back from Dr parks pending at this time as well, patient aware. - Lab Data Result diagrams: 11/20/21 14:45 11/20/21 14:18 Lab Results 11/20/21 11/20/21 11/20/21 Range/Units 14:18 14:18 14:18 WBC (3.8-10.6) k/uL RBC (3.80-5.40) m/uL Hgb (11.4-16.0) gm/dL Hct (34.0-46.0) % MCV (80.0-100.0) fL MCH (25.0-35.0) pg MCHC (31.0-37.0) g/dL RDW (11.5-15.5) % Plt Count (150-450) k/uL MPV Hypochromasia Poikilocytosis Anisocytosis Macrocytosis PT 15.5 H (9.0-12.0) sec INR 1.6 H (<1.2) APTT 29.1 (22.0-30.0) sec Sodium 137 (137-145) mmol/L Potassium 3.1 L (3.5-5.1) mmol/L Chloride 101 (98-107) mmol/L Carbon Dioxide 28 (22-30) mmol/L Anion Gap 8 mmol/L BUN 46 H (7-17) mg/dL Creatinine 2.57 H (0.52-1.04) mg/dL Est GFR (CKD-EPI)AfAm 22 (>60 ml/min/1.73 sqM) Est GFR (CKD-EPI)NonAf 19 (>60 ml/min/1.73 sqM) Glucose 147 H (74-99) mg/dL Calcium 8.3 L (8.4-10.2) mg/dL Total Bilirubin 12.2 H (0.2-1.3) mg/dL AST 54 H (14-36) U/L ALT 24 (4-34) U/L Alkaline Phosphatase 123 (38-126) U/L NT-Pro-B Natriuret Pep 721 pg/mL Total Protein 6.7 (6.3-8.2) g/dL Albumin 2.6 L (3.5-5.0) g/dL Lipase 308 H (23-300) U/L 11/20/21 Range/Units 14:45 WBC 8.3 (3.8-10.6) k/uL RBC 2.09 L (3.80-5.40) m/uL Hgb 9.0 L (11.4-16.0) gm/dL Hct 27.2 L (34.0-46.0) % MCV 130.2 H (80.0-100.0) fL MCH 43.2 H (25.0-35.0) pg MCHC 33.2 (31.0-37.0) g/dL RDW 18.4 H (11.5-15.5) % Plt Count 89 L (150-450) k/uL MPV 7.8 Hypochromasia Marked Poikilocytosis Moderate Anisocytosis Slight Macrocytosis Marked A PT (9.0-12.0) sec INR (<1.2) APTT (22.0-30.0) sec Sodium (137-145) mmol/L Potassium (3.5-5.1) mmol/L Chloride (98-107) mmol/L Carbon Dioxide (22-30) mmol/L Anion Gap mmol/L BUN (7-17) mg/dL Creatinine (0.52-1.04) mg/dL Est GFR (CKD-EPI)AfAm (>60 ml/min/1.73 sqM) Est GFR (CKD-EPI)NonAf (>60 ml/min/1.73 sqM) Glucose (74-99) mg/dL Calcium (8.4-10.2) mg/dL Total Bilirubin (0.2-1.3) mg/dL AST (14-36) U/L ALT (4-34) U/L Alkaline Phosphatase (38-126) U/L NT-Pro-B Natriuret Pep pg/mL Total Protein (6.3-8.2) g/dL Albumin (3.5-5.0) g/dL Lipase (23-300) U/L Disposition Clinical Impression: Chronic kidney disease, Cirrhosis, Jaundice, Shortness of breath, Pleural effusion associated with hepatic disorder Disposition: ADMITTED IP TO THIS [facility] Is patient prescribed a controlled substance at d/c from ED?: No Referrals: Saul Pearson MD [Primary Care Provider] - 1-2 days Time of Disposition: 15:06
[2021-11-20] MEDS ORDERED: ONDANSETRON 4 MG/2 ML VIAL IVP STA (14:31)
--- NOTE | 2021-11-20 14:36 | XR ---
EXAMINATION TYPE: XR chest 2V DATE OF EXAM: 11/20/2021 COMPARISON: Chest x-ray November 14, 2021 and older studies. HISTORY: Weakness and shortness of breath. Recurrent effusion. TECHNIQUE: Frontal and lateral views of the chest are obtained. FINDINGS: There is now completely opacified right hemithorax with mediastinal shift to the left. Ove rlying bra strap. Left lung shows increased central opacity. Right heart border is silhouetted on cur rent study. The osseous structures are intact. IMPRESSION: Worsening right lung opacification with right lung expansion suggests recurrent large pl eural effusion. Correlate clinically with findings from prior thoracentesis. New mild to moderate mak tral left mid lung edema and/or infiltrate.
[2021-11-20 14:49] LABS: Albumin 2.6 g/dL (3.5-5.0); Calcium 8.3 mg/dL (8.4-10.2); Potassium 3.1 mmol/L (3.5-5.1); Total Bilirubin 12.2 mg/dL (0.2-1.3); Total Protein 6.7 g/dL (6.3-8.2)
[2021-11-20 14:58] LABS: INR 1.6 (<1.2); Partial Thromboplastin Time 29.1 sec (22.0-30.0); Prothrombin Time 15.5 sec (9.0-12.0)
[2021-11-20 15:00] LABS: Anisocytosis Slight; HCT 27.2 % (34.0-46.0); Hypochromasia Marked; MCHC 33.2 g/dL (31.0-37.0); MCV 130.2 fL (80.0-100.0); Mean Platelet Volume 7.8; Poikilocytosis Moderate; RBC 2.09 m/uL (3.80-5.40); RDW 18.4 % (11.5-15.5); WBC 8.3 k/uL (3.8-10.6)
[2021-11-20 15:06] LABS: MCH 43.2 pg (25.0-35.0); Macrocytosis Marked; Platelet Count 89 k/uL (150-450)
[2021-11-20] MEDS ORDERED: NALOXONE 0.4 MG/ML 1 ML VIAL IV PRN (15:07)
[2021-11-20] MEDS ORDERED: POTASSIUM CHLORIDE ER 20 MEQ TAB.ER PO STA (15:26)
[2021-11-20] MEDS ORDERED: IPRATROPIUM-ALBUTEROL 3 ML NEB INHALATION PRN (16:33)
[2021-11-20] MEDS ORDERED: ACETAMINOPHEN TAB 325 MG TAB PO PRN (16:34)
[2021-11-20] MEDS ORDERED: ONDANSETRON 4 MG/2 ML VIAL IVP PRN (16:34)
--- NOTE | 2021-11-20 16:46 | P.HPIM ---
History of Present Illness H&P Date: 11/20/21 Chief Complaint: Worsening shortness of breath and jaundice HISTORY OF PRESENT ILLNESS This is a 65-year-old female patient of Dr. Pearson with past medical history of cryptogenic cirrhosis of the liver under the care of Dr. Oleksandr Shelley and working with [facility] for possible liver transplant, migraine headaches, Covid 19 status post monoclonal antibodies August 2021. Patient was recently admitted on 10/[address] Mixon service for large pleural effusion and required thoracentesis followed by a visit to the emergency room on 10/29. Patient had another thoracentesis performed as outpatient by Dr. Ewing on 11/14. She started experiencing shortness of breath for the past 4 days called our pulmonary office was unable to get N to the end of November and decided to come to the hospital. Patient's family at bedside has also noticed increased jaundice. Patient also endorses nausea, vomiting and diarrhea and is feeling unwell. She has not been eating or drinking for the past 2 days. Patient has a pending colonoscopy and repeat labs before she can be listed on the transplant list at [facility]. She follows with Dr. Torres regularly. notices is afebrile pulse 93 respiratory rate 20 blood pressure 120/69 oxygenating at 91% on room air. Labs are reviewed patient is a WBC 8.3 hemoglobin 9 MCV 1:30 platelet 89 macrocytosis INR 1.6 sodium 137 potassium 3.1 BUN of 46 creatinine 2.57 glucose 147 total bilirubin has increased from 8.7-12.2 and proBNP 9721 lipase 308 Covid virus not detected. Pulmonary and gastroenterology consulted. Initiated on Lasix 40 IV twice a day. Potassium initiated a 40 mg once daily. Chest x-ray reviewed suggestive of worsening right lung opacification with right lung expansion suggesting recurrent large pleural effusion. REVIEW OF SYSTEMS Constitutional: No fever, no chills, no night sweats. No weight change. As to for weakness lethargic poor appetite No daytime sleepiness. EENT: No headache. No blurred vision or double vision, no loss of vision. No loss of Hearing, no ringing in the ears, no dizziness. No nasal drainage or congestion. No epistaxis. No sore throat. Lungs: Reports shortness of breath, cough, no sputum production. No wheezing. Cardiovascular: No chest pain, no lower extremity edema. No palpitations. No paroxysmal nocturnal dyspnea. No orthopnea. No lightheadedness or dizziness. No syncopal episodes. Abdominal: No abdominal pain. Positive for nausea vomiting and diarrhea No constipation. No bloody or tarry stools. No loss of appetite. Genitourinary: No dysuria, increased frequency, urgency. No urinary retention. Musculoskeletal: No myalgias. No muscle weakness, no gait dysfunction, no frequent falls. No back pain. No neck pain. Integumentary: No wounds, no lesions. No rash or pruritus. Reports chronic bruising. No change in hair or nails. Neurologic: No aphasia. No facial droop. No change in mentation. No head injury. No headache. No paralysis. No paresthesia. Psychiatric: No depression. No anxiety. No mood swings. Endocrine: No abnormal blood sugars. No weight change. No excessive sweating or thirst. No cold intolerance. SOCIAL HISTORY Patient is a lifelong nonsmoker, no alcohol use, no marijuana or illicit drug use. She is and lives alone. 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 Patient is independent and has no DME at home. FAMILY HISTORY Mther at age 64 from COPD. Father at age 45 from coronary artery disease. Patient does not have any brothers. She has one sister that has end- stage renal disease and diabetes status post amputation.. PHYSICAL EXAMINATION Gen: This is a 65-year-old female, appears sick looking frail. HEENT: Head is atraumatic, normocephalic. Pupils equal, round. Sclerae is anicteric NECK: Supple. No JVD. No lymphadenopathy. No thyromegaly. LUNGS: Imaged on the right side to about chcf. Decreased air entry on the right with crackles on the left. No intercostal retractions. HEART: Regular rate and rhythm. No murmur. ABDOMEN: Soft. Bowel sounds are present. No masses. No tenderness. No abdominal distention EXTREMITIES: 1+ pitting edema No calf tenderness. NEUROLOGICAL: Patient is awake, alert and oriented x3. No motor or sensory deficit ASSESSMENT AND PLAN 1. Large right pleural effusion secondary to cirrhosis Consult with pulmonary medicine. Continue IV Lasix 40 mg every 12 hours. Chest is marked for tho racentesis. Ultrasound chest ordered 2. Chronic kidney disease stage IIIb possible hepatorenal syndrome with advancing liver disease. Avoid nephrotoxic agents, monitor renal function 3. Cryptogenic cirrhosis of the liver under the care of Dr. Oleksandr Shelley and [facility] for possible liver transplant. Continue Lasix, Zofran as needed for nausea. Patient's MELD score is 30 with a 3 month mortality rate of 52.6%. Patient's MELDscore was 17 last month 4. Increased nausea with poor oral intake Protonix 40 by mouth daily with breakfast. 5. Bicytopenia with anemia and thrombocytopenia secondary to underlying liver disease. Continue to monitor. 6. Coagulopathy secondary to underlying liver disease and watch for bleeding 7. DVT prophylaxis. SCDs and ELIE hose. 8. GI prophylaxis. Protonix. 10. History of recent Covid 19 in August 2021 status post monoclonal antibodi es. Patient will be admitted to the hospital for a minimum of 2 night stay. DISCHARGE PLAN Home. Past Medical History Past Medical History: Hypertension Additional Past Medical History / Comment(s): hx. migraine headaches,. CIRROHISIS OF LIVER-UNKNOWN ORIGIN History of Any Multi-Drug Resistant Organisms: None Reported Past Surgical History: Appendectomy, Tonsillectomy Additional Past Surgical History / Comment(s): D & C's Past Anesthesia/Blood Transfusion Reactions: No Reported Reaction Past Psychological History: No Psychological Hx Reported Smoking Status: Never smoker Past Alcohol Use History: None Reported Past Drug Use History: None Reported - Past Family History Mother Family Medical History: Cancer Medications and Allergies Home Medications Medication Instructions Recorded Confirmed Type Fluticasone Propionate [Flovent 1 puff INHALATION RT-BID 10/14/21 11/20/21 History Hfa 110 mcg] Furosemide [Lasix] 10 mg PO Q48H 11/12/21 11/20/21 History Allergies Allergy/AdvReac Type Severity Reaction Status Date / Time egg white AdvReac Severe transischemic Uncoded 11/20/21 14:15 attacks Physical Exam Vitals: Vital Signs Temp Pulse Resp BP Pulse Ox 11/20/21 16:18 97.7 F 93 20 120/69 91 L 11/20/21 12:47 97.9 F 96 16 134/77 94 L Intake and Output 11/20/21 11/20/21 11/20/21 06:59 14:59 22:59 Other: Weight 73.028 kg Results CBC & Chem 7: 11/20/21 14:45 11/20/21 14:18 Labs: Abnormal Lab Results - Last 24 Hours (Table) 11/20/21 11/20/21 11/20/21 Range/Units 14:18 14:18 14:45 RBC 2.09 L (3.80-5.40) m/uL Hgb 9.0 L (11.4-16.0) gm/dL Hct 27.2 L (34.0-46.0) % MCV 130.2 H (80.0-100.0) fL MCH 43.2 H (25.0-35.0) pg RDW 18.4 H (11.5-15.5) % Plt Count 89 L (150-450) k/uL Macrocytosis Marked A PT 15.5 H (9.0-12.0) sec INR 1.6 H (<1.2) Potassium 3.1 L (3.5-5.1) mmol/L BUN 46 H (7-17) mg/dL Creatinine 2.57 H (0.52-1.04) mg/dL Glucose 147 H (74-99) mg/dL Calcium 8.3 L (8.4-10.2) mg/dL Total Bilirubin 12.2 H (0.2-1.3) mg/dL AST 54 H (14-36) U/L Albumin 2.6 L (3.5-5.0) g/dL Lipase 308 H (23-300) U/L
--- NOTE | 2021-11-20 17:38 | P.CNPUL ---
History of Present Illness Consult date: 11/20/21 Reason for consult: dyspnea, pleural effusion History of present illness: 65-year-old female patient with cryptogenic liver cirrhosis currently under investigation for her chest mentation still [facility]., Was coming in for worsening shortness of breath and the patient has a completely opacified right lung consistent with a large right-sided pleural effusion/hepatic hydrothorax. The patient has already undergone 2 previous thoracentesis. The last thoracentesis was done on 11/14/2021 and this was a transudate. This was also consistent with hepatic hydrothorax. The patient is coming in with worsening shortness of breath. No hepatic encephalopathy. No GI bleeding. She was not taking any form of diuretics on outpatient basis. She had COVID 19 infection back in August 2021 and she also received 1 acute on antibiotics and she states that her condition progressively got worse since then. The patient has a white cell count of 9. Platelet count is 89. She is coagulopathic with an INR of 1.6 with a PT of 15. PTT is a 29. Her creatinine is at 2.57 with a BUN of 46 and a creatinine of 2.57 and the sodium level of 137. Since the beginning of the year, the patient developed an acute kidney injury and the patient continues to have impaired renal function since then. Consider underlying hepatorenal syndrome. She was taken off the diuretics accordingly. Review of Systems Constitutional: Reports fatigue, Reports poor appetite, Reports weakness Eyes: denies as per HPI, denies blurred vision, denies bulging eye, denies decreased vision, denies diplopia, denies discharge, denies dry eye, denies irritation, denies itching, denies pain, denies photophobia, denies loss of peripheral vision, denies loss of vision, denies tunnel vision/blind spots Ears: deny: decreased hearing, ear discharge, earache, tinnitus Ears, nose, mouth and throat: Reports as per HPI Breasts: absent: as per HPI, change in shape, gynecomastia, masses, nipple discharge, pain, skin changes, swelling Cardiovascular: Reports decreased exercise tolerance, Reports dyspnea on exertion, Reports shortness of breath Respiratory: Reports dyspnea Gastrointestinal: Reports as per HPI, Reports loss of appetite, Reports nausea Genitourinary: Reports as per HPI Menstruation: Reports as per HPI Musculoskeletal: Reports as per HPI Musculoskeletal: absent: ankle pain, ankle stiffness, ankle swelling Integumentary: Reports as per HPI Neurological: Reports as per HPI Psychiatric: Reports as per HPI Endocrine: Reports as per HPI, Reports fatigue Hematologic/Lymphatic: Reports as per HPI Allergic/Immunologic: Reports as per HPI Past Medical History Past Medical History: Hypertension Additional Past Medical History / Comment(s): hx. migraine headaches,. CIRROHISIS OF LIVER-UNKNOWN ORIGIN History of Any Multi-Drug Resistant Organisms: None Reported Past Surgical History: Appendectomy, Tonsillectomy Additional Past Surgical History / Comment(s): D & C's Past Anesthesia/Blood Transfusion Reactions: No Reported Reaction Past Psychological History: No Psychological Hx Reported Smoking Status: Never smoker Past Alcohol Use History: None Reported Past Drug Use History: None Reported - Past Family History Mother Family Medical History: Cancer Medications and Allergies Home Medications Medication Instructions Recorded Confirmed Type Fluticasone Propionate [Flovent 1 puff INHALATION RT-BID 10/14/21 11/20/21 History Hfa 110 mcg] Furosemide [Lasix] 10 mg PO Q48H 11/12/21 11/20/21 History Allergies Allergy/AdvReac Type Severity Reaction Status Date / Time egg white AdvReac Severe transischemic Uncoded 11/20/21 14:15 attacks Physical Exam Vitals: Vital Signs Temp Pulse Resp BP Pulse Ox 11/20/21 16:18 97.7 F 93 20 120/69 91 L 11/20/21 12:47 97.9 F 96 16 134/77 94 L Intake and Output 11/20/21 11/20/21 11/20/21 06:59 14:59 22:59 Other: Weight 73.028 kg Gen: This is a 65-year-old female, appears sick looking frail. The patient is currently on room air oxygen. She is frail and cachectic and she is also jaundiced. Head exam was generally normal. There was no scleral icterus or corneal arcus. Mucous membranes were moist. HEENT: Head is atraumatic, normocephalic. Pupils equal, round. Sclerae is ani cteric NECK: Supple. No JVD. No lymphadenopathy. No thyromegaly. LUNGS: Imaged on the right side to about senior living. Decreased air entry on the right with crackles on the left. No intercostal retractions. HEART: Regular rate and rhythm. No murmur. ABDOMEN: Soft. Bowel sounds are present. No masses. No tenderness. No abdominal distention EXTREMITIES: 1+ pitting edema No calf tenderness. NEUROLOGICAL: Patient is awake, alert and oriented x3. No motor or sensory deficit Results - Laboratory Findings CBC and BMP: 11/20/21 14:45 11/20/21 14:18 PT/INR, D-dimer PT 15.5 sec (9.0-12.0) H 11/20/21 14:18 INR 1.6 (<1.2) H 11/20/21 14:18 Abnormal lab findings: Abnormal Labs 11/20/21 11/20/21 11/20/21 14:18 14:18 14:45 RBC 2.09 L Hgb 9.0 L Hct 27.2 L MCV 130.2 H MCH 43.2 H RDW 18.4 H Plt Count 89 L Macrocytosis Marked A PT 15.5 H INR 1.6 H Potassium 3.1 L BUN 46 H Creatinine 2.57 H Glucose 147 H Calcium 8.3 L Total Bilirubin 12.2 H AST 54 H Albumin 2.6 L Lipase 308 H - Diagnostic Findings Chest x-ray: image reviewed Assessment and Plan Plan: 1 hepatic hydrothorax. The patient has undergone previous thoracentesis 2 last procedure was done on 11/14/2021 and the patient had a rapid accumulation of pleural fluid. Fluid is a transudate 2 shortness of breath secondary to above 3 cryptogenic liver cirrhosis 4 chronic kidney disease consistent with hepatorenal syndrome 5 bicytopenia secondary to chronic liver disease. The patient has borderline thrombocytopenia, platelet counts are above 50 6 coagulopathy secondary to above 7 jaundice secondary to above Plan Palliative thoracentesis will be done again today Will need definitive treatments including lung transplantation or even possibility of a TIPS procedure that can be done at [facility] to control fluid buildup and recurrent of the hepatic hydrothorax May need to resume oral diuretics with close monitoring of the renal function Will follow. She carries a high mortality as indicated by the medical team and poor prognosis.
--- NOTE | 2021-11-20 19:19 | XR ---
EXAMINATION TYPE: XR chest 1V portable DATE OF EXAM: 11/20/2021 COMPARISON: Today HISTORY: Thoracentesis TECHNIQUE: Single view FINDINGS: There is blunting right costophrenic angle. Heart size is normal. There are no hilar masses . Mediastinum is normal. Bony thorax is intact. I see no pneumothorax. IMPRESSION: There is a mild right pleural effusion. There is significant clearing of right side hydro thorax compared to exam earlier today. No pneumothorax.
[2021-11-20] MEDS: FLUTICASONE 110 MCG INHALER INHALATION SCH (20:09)
[2021-11-20] MEDS: PANTOPRAZOLE 40 MG TABLET PO SCH (20:51)
[2021-11-20] MEDS: guaiFENesin 600 MG TABLET.ER PO SCH (20:51)
[2021-11-20] MEDS ORDERED: FUROSEMIDE 10 MG/ML 4 ML VIAL IV SCH (21:00)
[2021-11-21] MEDS: FLUTICASONE 110 MCG INHALER INHALATION SCH (07:50)
--- NOTE | 2021-11-21 08:05 | P.PCN ---
Date of Procedure: 11/21/21 Preoperative Diagnosis: Hepatic hydrothorax Postoperative Diagnosis: Hepatic hydrothorax Procedure(s) Performed: Thoracentesis Anesthesia: local Surgeon: Esteban Bañuelos Estimated Blood Loss (ml): 0 Pathology: none sent Condition: stable Disposition: floor Operative Findings: A time out was performed and the chest x-ray was reviewed, the appropriate side was confirmed and marked. My hands were washed immediately prior to the procedure. I wore a surgical cap, mask with protective eyewear, sterile gown and sterile gloves throughout the procedure. The patient was prepped and draped in a sterile manner using chlorhexidine scrub after the appropriate level was percussed and confirmed by ultrasound. 1% lidocaine was used to anesthesize the skin, subcutaneous tissue, superior aspect of the rib periosteum and parietal pleura. A finder needle was then introduced over the superior aspect of the rib to locate the pleural fluid; 2colored fluid was aspirated at a depth of approximately 2 cm. A 10-blade scalpel was used to john the skin at the insertion site. The [id number] needle was then introduced through the skin incision into the pleural space using negative aspiration pressure and the red colometric indicator to confirm appropriate positioning of the needle. The thoracentesis catheter was then threaded without difficulty. 2400 ml of turbid colored fluid was removed without difficulty. The catheter was then removed. No immediate complications were noted during the procedure. A post-procedure chest x-ray is pending at the time of this note. The fluid will not be sent for studies. Estimated blood loss is 0cc
[2021-11-21] MEDS: guaiFENesin 600 MG TABLET.ER PO SCH (08:33)
[2021-11-21] MEDS: PANTOPRAZOLE 40 MG TABLET PO SCH (08:33)
[2021-11-21 09:52] LABS: African American GFR (CKD) 22 (>60 ml/min/1.73 sqM); Anion Gap 2 mmol/L; Blood Urea Nitrogen 48 mg/dL (7-17); Calcium 7.8 mg/dL (8.4-10.2); Carbon Dioxide 29 mmol/L (22-30); Chloride 101 mmol/L (98-107); Glucose 120 mg/dL (74-99); Magnesium 2.1 mg/dL (1.6-2.3); Non-African American GFR(CKD) 19 (>60 ml/min/1.73 sqM); Potassium 3.7 mmol/L (3.5-5.1); Sodium 132 mmol/L (137-145)
--- NOTE | 2021-11-21 09:58 | P.NPCON ---
History of Present Illness - Reason for Consult acute renal failure - History of Present Illness Reason for consultation: Acute kidney injury History of present illness: Patient is a 66-year-old female seen in consultation for acute kidney injury. Patient's creatinine in May 2021 was 1.1 but recently has been in the range of 2-2.5. Creatinine yesterday was 2.57. Patient presented to the hospital with shortness of breath. She was noted to have a large right-sided pleural effusion and underwent thoracentesis with 2.4 L drained. Patient has history of cryptogenic liver cirrhosis and follows at [facility]. Patient states she is listed on the liver transplant list. She's had 3 tho racentesis so far this year. Currently she is on room air. Blood pressures stable. Has been voiding. No hematuria. Denies use of nonsteroidals. Denies history of heavy alcohol use. She is currently not on any diuretics. No cough. No history of diabetes. Denies family history of renal disease. Vital signs are stable. General: The patient appeared well nourished and normally developed. HEENT: Head exam is unremarkable. LUNGS: Breath sounds decreased. HEART: Rate and Rhythm are regular. ABDOMEN: Soft, no distention. EXTREMITITES: No edema. Past Medical History Past Medical History: Hypertension Additional Past Medical History / Comment(s): hx. migraine headaches,. CIRROHISIS OF LIVER-UNKNOWN ORIGIN History of Any Multi-Drug Resistant Organisms: None Reported Past Surgical History: Appendectomy, Tonsillectomy Additional Past Surgical History / Comment(s): D & C's Past Anesthesia/Blood Transfusion Reactions: No Reported Reaction Past Psychological History: No Psychological Hx Reported Smoking Status: Never smoker Past Alcohol Use History: None Reported Past Drug Use History: None Reported - Past Family History Mother Family Medical History: Cancer Medications and Allergies Home Medications Medication Instructions Recorded Confirmed Type Fluticasone Propionate [Flovent 1 puff INHALATION RT-BID 10/14/21 11/20/21 History Hfa 110 mcg] Furosemide [Lasix] 10 mg PO Q48H 11/12/21 11/20/21 History Allergies Allergy/AdvReac Type Severity Reaction Status Date / Time egg white AdvReac Severe transischemic Uncoded 11/20/21 14:15 attacks Physical Exam Vitals: Vital Signs Temp Pulse Pulse Pulse Resp BP BP 11/21/21 05:31 98.4 F 91 16 124/66 11/20/21 20:15 91 16 11/20/21 20:00 98.1 F 91 16 132/69 11/20/21 19:17 94 20 143/71 11/20/21 16:18 97.7 F 93 20 120/69 11/20/21 12:47 97.9 F 96 16 134/77 Pulse Ox 11/21/21 05:31 94 L 11/20/21 20:15 11/20/21 20:00 94 L 11/20/21 19:17 92 L 11/20/21 16:18 91 L 11/20/21 12:47 94 L Intake and Output 11/20/21 11/21/21 11/21/21 22:59 06:59 14:59 Other: Voiding Method Toilet Toilet # Voids 2 Weight 73.028 kg Results - Lab Results Most recent lab results Calcium 8.3 mg/dL (8.4-10.2) L 11/20/21 14:18 11/20/21 14:45 11/20/21 14:18 Assessment and Plan Plan: Assessment: 1. Acute kidney injury secondary to ATN. Concern for hepatorenal syndrome. Creatinine May 2021 was 1.1 but this year her creatinine has been in the range of 2-2.5. UA from September 2021 was fairly benign. 2. Right atrophic kidney. No hydronephrosis noted on kidney ultrasound on 10/17/2021. 3. Hypokalemia from poor intake. Replaced. 4. Cryptogenic liver cirrhosis. Patient follows at [facility]. 5. Acute hypoxic respiratory failure with large right-sided pleural effusion status post thoracentesis with 2.4 L drained. Plan: Add Lasix 40 mg po once daily. Add spironolactone 25 mg twice daily. 1200 mL fluid restriction. Encourage oral intake. Avoid nephrotoxins. Continue to monitor renal function and urine output. Thank you for the consultation. I will continue to follow the patient with you during her hospital stay.
[2021-11-21] MEDS ORDERED: SPIRONOLACTONE 25 MG TAB PO SCH (10:00)
[2021-11-21] MEDS ORDERED: FUROSEMIDE 40 MG TAB PO SCH (10:00)
--- NOTE | 2021-11-21 11:26 | P.PN ---
<Nika Heaton M - Last Filed: 11/21/21 10:54> Subjective Progress Note Date: 11/21/21 Principal diagnosis: Hepatic hydrothorax 65-year-old female patient with cryptogenic liver cirrhosis currently under investigation for her chest mentation still [facility]., Was coming in for worsening shortness of breath and the patient has a completely opacified right lung consistent with a large right-sided pleural effusion/hepatic hydrothorax. The patient has already undergone 2 previous thoracentesis. The last thoracentesis was done on 11/14/2021 and this was a transudate. This was a lso consistent with hepatic hydrothorax. The patient is coming in with worsening shortness of breath. No hepatic encephalopathy. No GI bleeding. She was not taking any form of diuretics on outpatient basis. She had COVID 19 infection back in August 2021 and she also received 1 acute on antibiotics and she states that her condition progressively got worse since then. The patient has a white cell count of 9. Platelet count is 89. She is coagulopathic with an INR of 1.6 with a PT of 15. PTT is a 29. Her creatinine is at 2.57 with a BUN of 46 and a creatinine of 2.57 and the sodium level of 137. Since the beginning of the year, the patient developed an acute kidney injury and the brandy scruggs continues to have impaired renal function since then. Consider underlying hepatorenal syndrome. She was taken off the diuretics accordingly. On 11/21/2021 patient seen in follow-up on medical oncology floor. She states she is breathing much easier since right-sided thoracentesis yesterday with removal of 2.4 L of turbid pleural fluid. The fluid was discarded. Previously patient had pleural fluid analysis which showed transudative fluid. Postprocedure chest x-ray showed a mild right-sided pleural effusion, and a significant clearing of the right side hydrothorax compared the exam earlier. No evidence of pneumothorax. Physical exam today reveals coarse crackles over right lung. The patient is maintaining saturations of 94% on room air, hemodynamically stable, afebrile. Breathing is nonlabored. she was seen in consultation by nephrology and she was restarted on Lasix 40 mg and Aldactone 25 mg twice daily. Today's labs have been reviewed, sodium is 132, potassium is 3.7, chloride is 101, CO2 is 29, BUN is 49, creatinine is 2.54. Patient was also seen by GI service Dr. Torres, awaiting consultation note and recommendation. Objective - Vital Signs Vital signs: Vital Signs Temp 98.4 F 11/21/21 05:31 Pulse 91 11/21/21 05:31 Resp 16 11/21/21 05:31 BP 124/66 11/21/21 05:31 Pulse Ox 94 L 11/21/21 05:31 Intake & Output 11/20/21 11/21/21 11/21/21 18:59 06:59 18:59 Weight 73.028 kg 73.028 kg Other: Voiding Method Toilet Toilet # Voids 2 - Exam GENERAL EXAM: Alert, very pleasant, 66-year-old white female on room air with a pulse ox of 94% comfortable in no apparent distress. HEAD: Normocephalic/atraumatic. EYES: Normal reaction of pupils, equal size. Conjunctiva pink, sclera white. NOSE: Clear with pink turbinates. THROAT: No erythema or exudates. NECK: No masses, no JVD, no thyroid enlargement, no adenopathy. CHEST: No chest wall deformity. Symmetrical expansion. LUNGS: Equal air entry with coarse crackles on the right CVS: Regular rate and rhythm, normal S1 and S2, no gallops, no murmurs, no rubs ABDOMEN: Soft, nontender. No hepatosplenomegaly, normal bowel sounds, no guarding or rigidity. EXTREMITIES: No clubbing, 1+ edema in bilateral lower extremities, no cyanosis, 2+ pulses and upper and lower extremities. MUSCULOSKELETAL: Muscle strength and tone normal. SPINE: No scoliosis or deformity SKIN: No rashes CENTRAL NERVOUS SYSTEM: Alert and oriented -3. No focal deficits, tone is normal in all 4 extremities. PSYCHIATRIC: Alert and oriented -3. Appropriate affect. Intact judgment and insight. - Labs CBC & Chem 7: 11/20/21 14:45 11/21/21 09:10 Labs: Abnormal Lab Results - Last 24 Hours (Table) 11/20/21 11/20/21 11/20/21 Range/Units 14:18 14:18 14:45 RBC 2.09 L (3.80-5.40) m/uL Hgb 9.0 L (11.4-16.0) gm/dL Hct 27.2 L (34.0-46.0) % MCV 130.2 H (80.0-100.0) fL MCH 43.2 H (25.0-35.0) pg RDW 18.4 H (11.5-15.5) % Plt Count 89 L (150-450) k/uL Macrocytosis Marked A PT 15.5 H (9.0-12.0) sec INR 1.6 H (<1.2) Sodium (137-145) mmol/L Potassium 3.1 L (3.5-5.1) mmol/L BUN 46 H (7-17) mg/dL Creatinine 2.57 H (0.52-1.04) mg/dL Glucose 147 H (74-99) mg/dL Calcium 8.3 L (8.4-10.2) mg/dL Total Bilirubin 12.2 H (0.2-1.3) mg/dL AST 54 H (14-36) U/L Albumin 2.6 L (3.5-5.0) g/dL Lipase 308 H (23-300) U/L 11/21/21 Range/Units 09:10 RBC (3.80-5.40) m/uL Hgb (11.4-16.0) gm/dL Hct (34.0-46.0) % MCV (80.0-100.0) fL MCH (25.0-35.0) pg RDW (11.5-15.5) % Plt Count (150-450) k/uL Macrocytosis PT (9.0-12.0) sec INR (<1.2) Sodium 132 L (137-145) mmol/L Potassium (3.5-5.1) mmol/L BUN 48 H (7-17) mg/dL Creatinine 2.54 H (0.52-1.04) mg/dL Glucose 120 H (74-99) mg/dL Calcium 7.8 L (8.4-10.2) mg/dL Total Bilirubin (0.2-1.3) mg/dL AST (14-36) U/L Albumin (3.5-5.0) g/dL Lipase (23-300) U/L Assessment and Plan Plan: Assessment: #1. Recurrent right-sided hepatic hydrothorax, patient has undergone previous thoracentesis 2 with the last procedure on 11/14/2021. Patient came into the emergency department on 11/20/2021 with rapid reaccumulation of the pleural fluid. Previously pleural fluid analysis revealed transudative fluid. Patient had bedside thoracentesis on 11/20/2021 with removal of 2.4 L of turbid pleural fluid, with significant clearing of the right side hydrothorax of the right lung post procedure. No pneumothorax #2. Shortness of breath secondary to the above, improving #3. Cryptogenic liver cirrhosis #4. CKD consistent with hepatorenal syndrome #5. 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 #6. Coagulopathy secondary to above #7. Jaundice secondary to above Plan: Patient is breathing much easier since the right-sided thoracentesis Maintaining stable O2 saturations on room air Postprocedure chest x-ray has been reviewed showing no evidence of pneumothorax, and residual small right pleural effusion Nephrology recommendations From pulmonary perspective patient can be considered for discharge home today with follow-up with her liver specialist at [facility] for possibility of TIPS procedure I have personally seen and examined the patient, performed the documentation and the assessment and plan as written. Number of minutes spent on the visit: 10 Time with Patient: Less than 30 <Esteban Bañuelos - Last Filed: 11/21/21 15:40> Objective - Vital Signs Vital signs: Vital Signs Temp 98 F 11/21/21 12:05 Pulse 85 11/21/21 12:05 Resp 18 11/21/21 12:05 BP 108/64 11/21/21 12:05 Pulse Ox 93 L 11/21/21 12:05 Intake & Output 11/20/21 11/21/21 11/21/21 18:59 06:59 18:59 Weight 73.028 kg 73.028 kg Other: Voiding Method Toilet Toilet # Voids 2 - Labs CBC & Chem 7: 11/20/21 14:45 11/21/21 09:10 Labs: Abnormal Lab Results - Last 24 Hours (Table) 11/21/21 11/21/21 Range/Units 09:10 12:15 Sodium 132 L (137-145) mmol/L BUN 48 H (7-17) mg/dL Creatinine 2.54 H (0.52-1.04) mg/dL Glucose 120 H (74-99) mg/dL Calcium 7.8 L (8.4-10.2) mg/dL Urine Protein Trace H (Negative) Urine Bilirubin 1+ H (Negative) Assessment and Plan Plan: I have personally seen and examined the patient and reviewed the documentation. I performed a joint evaluation with the nurse practitioner in this evaluation was done more than 10 minutes. I fully agree with the documentation above and the plan of care.
[2021-11-21 12:06] VITALS: BP 108/64; PULSE 85; RESP 18; TEMP 98
[2021-11-21 12:47] LABS: Appearance,Urine Clear (Clear); Bilirubin,Urine 1+ (Negative); Blood,Urine Negative (Negative); Color,Urine Dark Yellow; Glucose,Urine (UA) Negative (Negative); Ketones,Urine Negative (Negative); Leukocyte Esterase,Urine Negative (Negative); Nitrite,Urine Negative (Negative); PH, Urine 5.5 (5.0-8.0); Protein,Urine Trace (Negative); Specific Gravity,Urine 1.016 (1.001-1.035)
--- NOTE | 2021-11-21 13:54 | P.CONS ---
History of Present Illness - Reason for Consult Consult date: 11/21/21 liver cirrhosis, progressing jaundice Requesting physician: Jimbo De Santiago - Chief Complaint shortness of breath, not feeling well - History of Present Illness This is a 66-year-old white female with past medical history of cryptogenic cirrhosis of the liver and follows with Dr. Shelley. presented to the emergency department with complaints of overall not feeling well and increased shortness of breath. She's had recent thoracentesis done on 223 with 1.2 L of fluid remov ed and again yesterday had 2.4 L removed. The patient states she has an appointment set up outpatient with nephrology, she has been seen at [facility] with Dr. Bauer from [facility] and is following with the liver transplant team. Denies any previous history of paracentesis. She states that she was on Lasix 10 mg every other day. She had a EGD with Dr. Nava 06/05/2020 for evaluation of known cirrhosis with findings of mild gastritis.millilamberts WBC 8.3 hemoglobin 9 hematocrit 27 platelet count 89,019 and 1.6 total bilirubin 12.2 AST 54 ALT 24 alkaline phosphatase 123 lipase 308. Patient states her breathing is better. She denies any abdominal pain, nausea, or vomiting. Denies any confusion. Review of Systems REVIEW OF SYSTEMS: CARDIOPULMONARY: No chest pain. Shortness of breath improved. Gastrointestinal: No abdominal pain, no abdominal distention. No nausea or vomiting. No hematemesis, coffee-ground emesis. No rectal bleeding, or melena. GENITOURINARY: No dysuria or hematuria. MUSCULOSKELETAL: Reports normal range of motion., Joint pain. SKIN: No rashes. No jaundice. ENDOCRINE: No chills, fevers. No excessive weight gain or loss. No polydipsia or polyuria. PSYCHIATRIC: Unremarkable. NEUROLOGY: No change in mental status. Denies dizziness, headache. ENT: Vision unremarkable. CONSTITUTIONAL: No recent weight loss. No fever, chills, night sweats. Past Medical History Past Medical History: Hypertension Additional Past Medical History / Comment(s): hx. migraine headaches,. CIRROHISIS OF LIVER-UNKNOWN ORIGIN History of Any Multi-Drug Resistant Organisms: None Reported Past Surgical History: Appendectomy, Tonsillectomy Additional Past Surgical History / Comment(s): D & C's Past Anesthesia/Blood Transfusion Reactions: No Reported Reaction Past Psychological History: No Psychological Hx Reported Smoking Status: Never smoker Past Alcohol Use History: None Reported Past Drug Use History: None Reported - Past Family History Mother Family Medical History: Cancer Medications and Allergies Home Medications Medication Instructions Recorded Confirmed Type Fluticasone Propionate [Flovent 1 puff INHALATION RT-BID 10/14/21 11/20/21 History Hfa 110 mcg] Furosemide [Lasix] 40 mg PO DAILY #30 tab 11/21/21 Rx Spironolactone [Aldactone] 25 mg PO BID #60 tab 11/21/21 Rx Allergies Allergy/AdvReac Type Severity Reaction Status Date / Time egg white AdvReac Severe transischemic Uncoded 11/20/21 14:15 attacks Physical Exam Vitals: Vital Signs Temp Pulse Pulse Pulse Resp BP BP 11/21/21 05:31 98.4 F 91 16 124/66 11/20/21 20:15 91 16 11/20/21 20:00 98.1 F 91 16 132/69 11/20/21 19:17 94 20 143/71 11/20/21 16:18 97.7 F 93 20 120/69 11/20/21 12:47 97.9 F 96 16 134/77 Pulse Ox 11/21/21 05:31 94 L 11/20/21 20:15 11/20/21 20:00 94 L 11/20/21 19:17 92 L 11/20/21 16:18 91 L 11/20/21 12:47 94 L Intake and Output 11/20/21 11/21/21 11/21/21 22:59 06:59 14:59 Other: Voiding Method Toilet # Voids 2 Weight 73.028 kg General appearance: The patient is alert, oriented, appears in no acute dist ress. HET: Head is normocephalic and atraumatic. Conjunctiva pink. Sclera anicteric. Neck: Supple without lymphadenopathy. Trachea midline. Heart: S1 S2. Regular rate and rhythm. Lungs: Clear to auscultation. Abdomen: Soft, nontender, nondistended with bowel sounds. No guarding or rigidity. Skin: No rashes. No jaundice. Extremities: Normal skin color and turgor. No pedal edema. Neurological: No focal deficits. Alert and oriented x3. Results CBC & Chem 7: 11/20/21 14:45 11/21/21 09:10 Labs: Abnormal Lab Results - Last 24 Hours (Table) 11/20/21 11/20/21 11/20/21 Range/Units 14:18 14:18 14:45 RBC 2.09 L (3.80-5.40) m/uL Hgb 9.0 L (11.4-16.0) gm/dL Hct 27.2 L (34.0-46.0) % MCV 130.2 H (80.0-100.0) fL MCH 43.2 H (25.0-35.0) pg RDW 18.4 H (11.5-15.5) % Plt Count 89 L (150-450) k/uL Macrocytosis Marked A PT 15.5 H (9.0-12.0) sec INR 1.6 H (<1.2) Potassium 3.1 L (3.5-5.1) mmol/L BUN 46 H (7-17) mg/dL Creatinine 2.57 H (0.52-1.04) mg/dL Glucose 147 H (74-99) mg/dL Calcium 8.3 L (8.4-10.2) mg/dL Total Bilirubin 12.2 H (0.2-1.3) mg/dL AST 54 H (14-36) U/L Albumin 2.6 L (3.5-5.0) g/dL Lipase 308 H (23-300) U/L Comments: chest x-ray status post thoracentesis shows mild right pleural effusion. Significant clearing of right side hydrothorax compared to exam earlier. No pneumothorax Assessment and Plan (1) Cryptogenic cirrhosis of liver Narrative/Plan: patient is 66 years old admitted to the hospital for shortness of breath with noted right-sided pleural effusion with hepatic hydrothorax. Patient recently underwent thoracentesis last procedure 11/14/2021 then again repeat thorace ntesis yesterday with 2.4 L of fluid removed. She has no prior history of paracentesis. She has been on a low dose Lasix 10 mg every other day. She has been following with Dr. Shelley for her cirrhosis of the liver and has followed as well with Dr. Juancarlos Marie [facility] transplant team. Patient states she is supposed to have outpatient follow-up with nephrology but has yet to have that appointment. She was noted to have chronic kidney disease. There is elevation in her total bilirubin at 12.2. Patient follows closely with gastroenterology. We will continue outpatient monitoring. Current Visit: No Status: Acute Code(s): K74.69 - OTHER CIRRHOSIS OF LIVER SNOMED Code(s): 29571169 (2) Jaundice Current Visit: Yes Status: Acute Code(s): R17 - UNSPECIFIED JAUNDICE SNOMED Code(s): 35072391 (3) Pleural effusion associated with hepatic disorder Current Visit: Yes Status: Acute Code(s): K76.9 - LIVER DISEASE, UNSPECIFIED; J91.8 - PLEURAL EFFUSION IN OTHER CONDITIONS CLASSIFIED ELSEWHERE SNOMED Code(s): 27628574 Plan: 1. Continue symptomatic and supportive care 2. Consult to nephrology for recommendations on diuretics 3. Continue with outpatient follow-up as scheduled with Dr. Shelley and [facility] Dr. Bauer 4. Continue with recommendations from pulmonology Thank you for this consultation, we will continue to follow. Dr. Oleksandr Shelley I agree with the dictator's note, documented as a scribe by Renetta Perdomo.
--- NOTE | 2021-11-21 14:40 | P.DS ---
Providers Date of admission: 11/20/21 15:07 Expected date of discharge: 11/21/21 Attending physician: Jimbo De Santiago MD Consults: 11/20/21 15:07 Consult Physician Routine Consulting Provider: Esteban Bañuelos Consult Reason/Comments: R pleural effusion/consolidation Do you want consulting provider notified?: Yes 11/20/21 15:23 Consult Physician Routine Consulting Provider: Lisa Shelley Consult Reason/Comments: liver cirrhosis, progressing jaundice Do you want consulting provider notified?: Yes 11/21/21 07:40 Consult Physician Routine Consulting Provider: Sang Ash Consult Reason/Comments: cirrhosis of liver, acute/chronic kidney failure Do you want consulting provider notified?: Yes Primary care physician: Saul Pearson [facility] Course: HISTORY OF PRESENT ILLNESS This is a 65-year-old female patient of Dr. Pearson with past medical history of cryptogenic cirrhosis of the liver under the care of Dr. Oleksandr Shelley and working with [facility] for possible liver transplant, migraine headaches, Covid 19 status post monoclonal antibodies August 2021. Patient was recently admitted on 10/[address] Mixon service for large pleural effusion and required thoracentesis followed by a visit to the emergency room on 10/29. Patient had another thoracentesis performed as outpatient by Dr. Ewing on 11/14. She started experiencing shortness of breath for the past 4 days called our pulmonary office was unable to get N to the end of November and decided to come to the hospital. Patient's family at bedside has also noticed increased jaundice. Patient also endorses nausea, vomiting and diarrhea and is feeling unwell. She has not been eating or drinking for the past 2 days. Patient has a pending colonoscopy and repeat labs before she can be listed on the transplant list at [facility]. She follows with Dr. Torres regularly. notices is afebrile pulse 93 respiratory rate 20 blood pressure 120/69 oxygenating at 91% on room air. Labs are reviewed patient is a WBC 8.3 hemoglobin 9 MCV 1:30 platelet 89 macrocytosis INR 1.6 sodium 137 potassium 3.1 BUN of 46 creatinine 2.57 glucose 147 total bilirubin has increased from 8.7-12.2 and proBNP 9721 lipase 308 Covid virus not detected. Pulmonary and gastroenterology consulted. Initiated on Lasix 40 IV twice a day. Potassium initiated a 40 mg once daily. Chest x-ray reviewed suggestive of worsening right lung opacification with right lung expansion suggesting recurrent large pleural effusion. 11/21: Patient has been seen by pulmonary medicine and is status post thorace ntesis with removal of 2400 ML's of fluid. Patient has been started on Lasix 40 mg daily and Aldactone 25 mg twice daily by nephrology as well as order 1200 ML fluid restriction, encourage oral intake and avoid nephrotoxins. Renal function and urine output is to be monitored. Patient has been afebrile, heart rate 91, blood pressure 124/66, pulse ox 94% on room air. Repeat blood work reveals so dium 132 otherwise electrolytes are normal. BUN 48 creatinine 2.54. Persistently patient states that she did have some itching during the night. Otherwise, she is feeling much better. She continues to have significant jaundice. Questions regarding condition of been answered. Patient has been cleared for discharge by Dr. Shelley with plan for follow-up in 2 weeks. Patient will be discharged today in stable condition. DISCHARGE DIAGNOSES 1. Large right pleural effusion secondary to cirrhosis status post therapeutic thoracentesis. 2. Chronic kidney disease stage IIIb possible hepatorenal syndrome with advancing liver disease. 3. Cryptogenic cirrhosis of the liver under the care of Dr. Oleksandr Shelley and [facility] for possible liver transplant. 4. Increased nausea with poor oral intake 5. Bicytopenia with anemia and thrombocytopenia secondary to underlying liver disease. 6. Coagulopathy secondary to underlying liver disease 7. History of recent Covid 19 in August 2021 status post monoclonal antibodies. DISCHARGE PLAN Home. Greater than 35 minutes was utilized and coordinating patient's discharge. Impression and plan of care have been directed as dictated by the signing physician. Maryellen Maya nurse practitioner acting as scribe for signing physician. Patient Condition at Discharge: Good Plan - Discharge Summary Discharge Rx Participant: Yes New Discharge Prescriptions: New Furosemide [Lasix] 40 mg PO DAILY #30 tab Spironolactone [Aldactone] 25 mg PO BID #60 tab Continue Fluticasone Propionate [Flovent Hfa 110 mcg] 1 puff INHALATION RT-BID Discontinued Furosemide [Lasix] 10 mg PO Q48H Discharge Medication List Fluticasone Propionate [Flovent Hfa 110 mcg] 1 puff INHALATION RT-BID 10/14/21 [History] Furosemide [Lasix] 40 mg PO DAILY #30 tab 11/21/21 [Rx] Spironolactone [Aldactone] 25 mg PO BID #60 tab 11/21/21 [Rx] Follow up Appointment(s)/Referral(s): Saul Pearson MD [Primary Care Provider] - 1 Week Lisa Shelley MD [STAFF PHYSICIAN] - 1 Week Discharge Disposition: HOME SELF-CARE
== END 2021-11-21 16:46 | disposition home or self-care (01) | DRG 432 ==
LOC: EC 12:28 → 1SOBS 15:07 → 5NMEDONC 16:25
PROVIDERS: ADMIT Internal Medicine; ATTEND Internal Medicine
PROC: 0W9930Z Drainage of Right Pleural Cavity with Drainage Device, Percutaneous Approach (ICD-10-PCS; principal; 2021-11-21)
DX: K74.69 Other cirrhosis of liver (principal); J96.01 Acute respiratory failure with hypoxia; K76.7 Hepatorenal syndrome; N17.0 Acute kidney failure with tubular necrosis; D68.9 Coagulation defect, unspecified; J91.8 Pleural effusion in other conditions classified elsewhere; J94.8 Other specified pleural conditions; Z20.822 Contact with and (suspected) exposure to COVID-19; D64.9 Anemia, unspecified; D69.59 Other secondary thrombocytopenia; G43.909 Migraine, unspecified, not intractable, without status migrainosus; D75.89 Other specified diseases of blood and blood-forming organs; E87.6 Hypokalemia; I12.9 Hypertensive chronic kidney disease with stage 1 through stage 4 chronic kidney disease, or unspecified chronic kidney disease; N18.32 Chronic kidney disease, stage 3b; N26.1 Atrophy of kidney (terminal); Z76.82 Awaiting organ transplant status; Z79.51 Long term (current) use of inhaled steroids; Z79.899 Other long term (current) drug therapy; Z82.49 Family history of ischemic heart disease and other diseases of the circulatory system; Z82.5 Family history of asthma and other chronic lower respiratory diseases; Z83.3 Family history of diabetes mellitus; Z86.16 Personal history of COVID-19; Z91.012 Allergy to eggs
CPT/HCPCS: 36415; 71045; 71046; 80048; 80053; 81003; 83690; 83735; 83880; 85027; 85610; 85730; 87635; 94640; 96374; 99285

== ENCOUNTER 2022-02-02 15:53 | Emergency (ER) | payer BC ==
--- NOTE | 2022-02-02 17:42 | ED ---
SOB HPI - General Chief Complaint: Shortness of Breath Stated Complaint: ANDRES Time Seen by Provider: 02/02/22 17:04 Source: patient, family, RN notes reviewed Mode of arrival: wheelchair Limitations: no limitations - History of Present Illness Initial Comments: 66-year-old female with a history of her recent liver transplant on December 24 of this year who just got out of [facility] last several days who presents with complaints of shortness of breath exertional dyspnea. She denies any fevers chills nausea vomiting sweats no chest pain. She states she has had paracenteses in the past due to fluid collection. She states the sore she now she believes the liver transplant has been successful. She does still have a feeding tube is in place per cutaneously. She denies any phlegm production when she coughs MD Complaint: shortness of breath - Related Data Home Medications Medication Instructions Recorded Confirmed Aspirin EC [Ecotrin] 325 mg PO DAILY 02/02/22 02/02/22 Insulin NPH Human Isophane 12 unit SQ BID@1200,1600 02/02/22 02/02/22 [humuLIN N] Insulin NPH Human Isophane 16 unit SQ DAILY@0800 02/02/22 02/02/22 [humuLIN N] Loperamide [Imodium] 2 mg PO DIRECTED PRN 02/02/22 02/02/22 Mirtazapine [Remeron] 15 mg PO HS 02/02/22 02/02/22 Multivitamins, Thera [Multivitamin 1 tab PO DAILY 02/02/22 02/02/22 (formulary)] NIFEdipine [NIFEdipine ER] 30 mg PO DAILY 02/02/22 02/02/22 Pantoprazole [Protonix] 40 mg PO DAILY 02/02/22 02/02/22 methocarbamoL [Robaxin] 500 mg PO TID PRN 02/02/22 02/02/22 predniSONE See Taper PO DAILY 02/02/22 02/02/22 Allergies Allergy/AdvReac Type Severity Reaction Status Date / Time egg white AdvReac Severe transischemic Uncoded 02/02/22 18:08 attacks Review of Systems ROS Statement: Those systems with pertinent positive or pertinent negative responses have been documented in the HPI. ROS Other: All systems not noted in ROS Statement are negative. Past Medical History Past Medical History: Hypertension Additional Past Medical History / Comment(s): hx. migraine headaches,. CIRROHISIS OF LIVER-UNKNOWN ORIGIN History of Any Multi-Drug Resistant Organisms: None Reported Past Surgical History: Appendectomy, Tonsillectomy Additional Past Surgical History / Comment(s): D & C's, liver transplant 12/24/21 Past Anesthesia/Blood Transfusion Reactions: No Reported Reaction Past Psychological History: No Psychological Hx Reported Smoking Status: Never smoker Past Alcohol Use History: None Reported Past Drug Use History: None Reported - Past Family History Mother Family Medical History: Cancer General Exam - General Exam Comments Initial Comments: This is a well-developed well-nourished awake alert oriented 3 female Limitations: no limitations General appearance: alert, in no apparent distress Head exam: Present: atraumatic, normocephalic, normal inspection Eye exam: Present: normal appearance, PERRL, EOMI. Absent: scleral icterus, conjunctival injection, periorbital swelling ENT exam: Present: mucous membranes dry Neck exam: Present: normal inspection. Absent: tenderness, meningismus, lymphadenopathy Respiratory exam: Present: decreased breath sounds, other (the decreased breath sounds especially on the right with dullness ). Absent: respiratory distress, wheezes, rales, rhonchi, stridor Cardiovascular Exam: Present: regular rate, normal rhythm, normal heart sounds. Absent: systolic murmur, diastolic murmur, rubs, gallop, clicks GI/Abdominal exam: Present: soft, normal bowel sounds, other (PG tube in place incision appears be healing well no evidence of any dehiscence or infectious processes). Absent: distended, tenderness, guarding, rebound, rigid Extremities exam: Present: normal inspection, full ROM, normal capillary refill. Absent: tenderness, pedal edema, joint swelling, calf tenderness Back exam: Present: normal inspection Neurological exam: Present: alert, oriented X3, CN II-XII intact Psychiatric exam: Present: normal affect, normal mood Skin exam: Present: warm, dry, intact, normal color. Absent: rash Course Vital Signs 02/02/22 02/02/22 02/02/22 16:26 20:21 20:29 Temperature 98.2 F Pulse Rate 93 85 97 Respiratory 20 16 Rate Blood Pressure 130/71 148/77 O2 Sat by Pulse 92 L 91 L 99 Oximetry 02/02/22 02/02/22 21:05 21:12 Temperature Pulse Rate 89 91 Respiratory 18 18 Rate Blood Pressure O2 Sat by Pulse Oximetry - Reevaluation(s) Reevaluation #1: 02/02/22 20:53 Reevaluation patient denies any GI bleeding no black stools no burgundy colored stools no blood per rectum that coughing or throwing up any blood. He did have a blood transfusion when she was at [facility]. Reevaluation #2: 02/02/22 20:53 I did evaluate the patient personally she is awake alert oriented x3 no pain. I did witness a video on a cell phone of the patient's boyfriend of her tonic- clonic activity. I did a long discussion with patient family regarding the findings patient will be discharged to follow-up with Dr. Maddie molina has planned is not unreasonable to start antiepileptic at this time Her will be given. She continues were a monitor for cardiology. Medical Decision Making - Medical Decision Making Reevaluation patient on several occasions reveals no major change patient was found have hyperkalemia as well as anemia with a hemoglobin 6.9. Also patient was treated aggressively for hyperkalemia EKG showed no significant change in T- wave morphology. I did a long session with the patient family regarding findings a requested transfer to [facility] is as were with her care has been recently. I did discuss the case with Dr. Jones who is agreed to accept the patient in transfer for the transplant unit. Patient will either be a direct admit or ER to ER transfer that is pending at this time. Blood has been ordered and is pending: Tenderness is pending. - Lab Data Result diagrams: 02/02/22 18:10 02/02/22 18:10 Lab Results 02/02/22 02/02/22 02/02/22 Range/Units 18:10 18:10 18:10 WBC 3.5 L (3.8-10.6) k/uL RBC 2.01 L (3.80-5.40) m/uL Hgb 6.9 L* (11.4-16.0) gm/dL Hct 22.8 L (34.0-46.0) % MCV 113.3 H (80.0-100.0) fL MCH 34.2 (25.0-35.0) pg MCHC 30.1 L (31.0-37.0) g/dL RDW 20.5 H (11.5-15.5) % Plt Count 129 L (150-450) k/uL MPV 7.9 Neutrophils % 86 % Lymphocytes % 4 % Monocytes % 7 % Eosinophils % 1 % Basophils % 1 % Neutrophils # 3.0 (1.3-7.7) k/uL Lymphocytes # 0.2 L (1.0-4.8) k/uL Monocytes # 0.2 (0-1.0) k/uL Eosinophils # 0.0 (0-0.7) k/uL Basophils # 0.0 (0-0.2) k/uL Manual Slide Review Performed Hypochromasia Marked Poikilocytosis Slight Anisocytosis Moderate Macrocytosis Marked A PT 10.0 (9.0-12.0) sec INR 0.9 (<1.2) APTT 19.8 L (22.0-30.0) sec Sodium 137 (137-145) mmol/L Potassium 6.5 H* (3.5-5.1) mmol/L Chloride 106 (98-107) mmol/L Carbon Dioxide 25 (22-30) mmol/L Anion Gap 6 mmol/L BUN 60 H (7-17) mg/dL Creatinine 1.14 H (0.52-1.04) mg/dL Est GFR (CKD-EPI)AfAm 59 (>60 ml/min/1.73 sqM) Est GFR (CKD-EPI)NonAf 51 (>60 ml/min/1.73 sqM) Glucose 278 H (74-99) mg/dL Plasma Lactic Acid Chris (0.7-2.0) mmol/L Calcium 9.3 (8.4-10.2) mg/dL Magnesium 1.8 (1.6-2.3) mg/dL Total Bilirubin 0.9 (0.2-1.3) mg/dL AST 32 (14-36) U/L ALT 58 H (4-34) U/L Alkaline Phosphatase 85 (38-126) U/L Troponin I (0.000-0.034) ng/mL NT-Pro-B Natriuret Pep pg/mL Total Protein 5.8 L (6.3-8.2) g/dL Albumin 3.5 (3.5-5.0) g/dL Blood Type Blood Type Recheck Bld Type Recheck Status Antibody Screen Crossmatch Spec Expiration Date 02/02/22 02/02/22 02/02/22 Range/Units 18:10 18:10 18:10 WBC (3.8-10.6) k/uL RBC (3.80-5.40) m/uL Hgb (11.4-16.0) gm/dL Hct (34.0-46.0) % MCV (80.0-100.0) fL MCH (25.0-35.0) pg MCHC (31.0-37.0) g/dL RDW (11.5-15.5) % Plt Count (150-450) k/uL MPV Neutrophils % % Lymphocytes % % Monocytes % % Eosinophils % % Basophils % % Neutrophils # (1.3-7.7) k/uL Lymphocytes # (1.0-4.8) k/uL Monocytes # (0-1.0) k/uL Eosinophils # (0-0.7) k/uL Basophils # (0-0.2) k/uL Manual Slide Review Hypochromasia Poikilocytosis Anisocytosis Macrocytosis PT (9.0-12.0) sec INR (<1.2) APTT (22.0-30.0) sec Sodium (137-145) mmol/L Potassium (3.5-5.1) mmol/L Chloride (98-107) mmol/L Carbon Dioxide (22-30) mmol/L Anion Gap mmol/L BUN (7-17) mg/dL Creatinine (0.52-1.04) mg/dL Est GFR (CKD-EPI)AfAm (>60 ml/min/1.73 sqM) Est GFR (CKD-EPI)NonAf (>60 ml/min/1.73 sqM) Glucose (74-99) mg/dL Plasma Lactic Acid Chris 1.0 (0.7-2.0) mmol/L Calcium (8.4-10.2) mg/dL Magnesium (1.6-2.3) mg/dL Total Bilirubin (0.2-1.3) mg/dL AST (14-36) U/L ALT (4-34) U/L Alkaline Phosphatase (38-126) U/L Troponin I <0.012 (0.000-0.034) ng/mL NT-Pro-B Natriuret Pep 872 pg/mL Total Protein (6.3-8.2) g/dL Albumin (3.5-5.0) g/dL Blood Type Blood Type Recheck Bld Type Recheck Status Antibody Screen Crossmatch Spec Expiration Date 02/02/22 Range/Units 20:25 WBC (3.8-10.6) k/uL RBC (3.80-5.40) m/uL Hgb (11.4-16.0) gm/dL Hct (34.0-46.0) % MCV (80.0-100.0) fL MCH (25.0-35.0) pg MCHC (31.0-37.0) g/dL RDW (11.5-15.5) % Plt Count (150-450) k/uL MPV Neutrophils % % Lymphocytes % % Monocytes % % Eosinophils % % Basophils % % Neutrophils # (1.3-7.7) k/uL Lymphocytes # (1.0-4.8) k/uL Monocytes # (0-1.0) k/uL Eosinophils # (0-0.7) k/uL Basophils # (0-0.2) k/uL Manual Slide Review Hypochromasia Poikilocytosis Anisocytosis Macrocytosis PT (9.0-12.0) sec INR (<1.2) APTT (22.0-30.0) sec Sodium (137-145) mmol/L Potassium (3.5-5.1) mmol/L Chloride (98-107) mmol/L Carbon Dioxide (22-30) mmol/L Anion Gap mmol/L BUN (7-17) mg/dL Creatinine (0.52-1.04) mg/dL Est GFR (CKD-EPI)AfAm (>60 ml/min/1.73 sqM) Est GFR (CKD-EPI)NonAf (>60 ml/min/1.73 sqM) Glucose (74-99) mg/dL Plasma Lactic Acid Chris (0.7-2.0) mmol/L Calcium (8.4-10.2) mg/dL Magnesium (1.6-2.3) mg/dL Total Bilirubin (0.2-1.3) mg/dL AST (14-36) U/L ALT (4-34) U/L Alkaline Phosphatase (38-126) U/L Troponin I (0.000-0.034) ng/mL NT-Pro-B Natriuret Pep pg/mL Total Protein (6.3-8.2) g/dL Albumin (3.5-5.0) g/dL Blood Type A Negative Blood Type Recheck A Neg Bld Type Recheck Status No Antibody Screen NEGATIVE Crossmatch See Detail Spec Expiration Date 02/05/20222324 - EKG Data -: EKG Interpreted by Me EKG shows normal: sinus rhythm EKG Comments: Sinus rhythm of 85. Interval 145 QRS hindu 8070 QT with QTC 344/386 nonspecific T-wave configuration - Radiology Data Radiology results: report reviewed (Imaging reviewed as well as report evidence a right pleural effusion to see complete report), image reviewed Critical Care Time Critical Care Time: Yes Total Critical Care Time: 39 Critical Care Time: Critical care time included initial presentation with history physical labs x- rays multiple reevaluation patient responsive therapy multiple discussion with the patient and family discussion with any [facility] transplant team as well as Dr. Jones from [facility] in [place] review of old charting available documentation of the above Disposition Clinical Impression: Anemia, Hyperkalemia, Recurrent right pleural effusion, Liver transplant recipient, Exertional dyspnea Disposition: OTHER INSTITUTION NOT DEFINED Condition: Fair Referrals: Saul Pearson MD [Primary Care Provider] - 1-2 days Decision Date: 02/02/22 Decision Time: 21:00 - Out of Hospital Transfer - Req. Specs Out of Hospital Transfer - Requested Specifics: Other Emergency Center
--- NOTE | 2022-02-02 17:58 | XR ---
EXAMINATION TYPE: XR chest 2V DATE OF EXAM: 02/02/2022 COMPARISON: 11/20/2021 HISTORY: Short of breath TECHNIQUE: FINDINGS: There is some blunting of the right costophrenic angle. There is poor inspiration. No gross heart failure. Heart size is fairly normal. IMPRESSION: There is right pleural effusion and right basilar atelectasis increased compared to last exam. No heart failure seen.
[2022-02-02 18:26] LABS: Anisocytosis Moderate; Basophils % (A) 1 %; Eosinophils % (A) 1 %; HCT 22.8 % (34.0-46.0); Hypochromasia Marked; Lymphocytes # (A) 0.2 k/uL (1.0-4.8); Lymphocytes % (A) 4 %; MCH 34.2 pg (25.0-35.0); MCHC 30.1 g/dL (31.0-37.0); MCV 113.3 fL (80.0-100.0); Macrocytosis Marked; Mean Platelet Volume 7.9; Monocytes # (A) 0.2 k/uL (0-1.0); Monocytes % (A) 7 %; Neutrophils % (A) 86 %; Platelet Count 129 k/uL (150-450); Poikilocytosis Slight; RBC 2.01 m/uL (3.80-5.40); RDW 20.5 % (11.5-15.5); WBC 3.5 k/uL (3.8-10.6)
[2022-02-02 18:31] LABS: HGB 6.9 gm/dL (11.4-16.0)
[2022-02-02 18:32] LABS: Albumin 3.5 g/dL (3.5-5.0); Calcium 9.3 mg/dL (8.4-10.2); Magnesium 1.8 mg/dL (1.6-2.3); Total Bilirubin 0.9 mg/dL (0.2-1.3); Total Protein 5.8 g/dL (6.3-8.2)
[2022-02-02 18:39] LABS: INR 0.9 (<1.2)
[2022-02-02 18:41] LABS: Partial Thromboplastin Time 19.8 sec (22.0-30.0)
[2022-02-02 18:44] LABS: Potassium 6.5 mmol/L (3.5-5.1)
[2022-02-02] MEDS ORDERED: DEXTROSE 50% SYRINGE 50 ML IVP STA (19:49)
[2022-02-02] MEDS ORDERED: INSULIN REGULAR 100 UNIT/ML VIAL (IV) IV ONE (19:50)
[2022-02-02] MEDS ORDERED: FUROSEMIDE 10 MG/ML 4 ML VIAL IV STA (19:50)
[2022-02-02] MEDS ORDERED: CALCIUM GLUCONATE IN NACL 1 GM in SALINE 1 100ML.BAG IVPB ONE (19:50)
[2022-02-02] MEDS ORDERED: SODIUM CHLORIDE 0.9% 1,000 ML IV STA (19:50)
[2022-02-02] MEDS ORDERED: VANCOMYCIN 125 MG CAPSULE PO STA (20:35)
[2022-02-02] MEDS ORDERED: TACROLIMUS 1 MG CAP PO STA (20:37)
[2022-02-02] MEDS ORDERED: MIRTAZAPINE 15 MG TAB PO STA (20:38)
[2022-02-02] MEDS ORDERED: ALBUTEROL NEB (CONC) 2.5 MG/0.5 ML INHALATION ONE (20:56)
[2022-02-02] MEDS: ALBUTEROL NEBULIZED (CONC) 20 MG, SODIUM CHLORIDE 0.9% NEBULIZ 3 ML INHALATION ONE ×4 (21:01→21:02)
[2022-02-02] MEDS ORDERED: SODIUM POLYSTYRENE SULFONATE 15 GM/60 ML BOTTLE PO ONE (21:10)
[2022-02-02 23:16] VITALS: PULSE 86; RESP 18
[2022-02-02 23:20] VITALS: BP 166/89; TEMP 97.5
== END 2022-02-02 23:44 | disposition other institution (70) ==
LOC: EC 15:53
DX: J90 Pleural effusion, not elsewhere classified (principal); D64.9 Anemia, unspecified; E87.5 Hyperkalemia; I10 Essential (primary) hypertension; Z79.82 Long term (current) use of aspirin; Z94.4 Liver transplant status; Z79.899 Other long term (current) drug therapy
CPT/HCPCS: 36415; 94640; 93005; 86900; 86901; 83880; 80053; 83605; 83735; 84484; 85025; 85610; 85730; 86850; 86920; 87635; 71046; 99291; 96365; 96366 ×3; 96375 ×3; P9016; J1940; J7507; J0610

== ENCOUNTER 2022-02-13 09:17 | Emergency (ER) | payer BC ==
[2022-02-13 09:20] VITALS: TEMP 98.1
--- NOTE | 2022-02-13 10:40 | XR ---
EXAMINATION TYPE: XR chest 2V DATE OF EXAM: 02/13/2022 COMPARISON: 02/02/2022 INDICATION: Difficulty breathing TECHNIQUE: Frontal and lateral views of the chest are obtained. FINDINGS: The heart size is borderline in size. The pulmonary vasculature is normal. There is a moderate right pleural effusion.. IMPRESSION: 1. Moderate right pleural effusion, stable
[2022-02-13 10:53] LABS: Anisocytosis Slight; Basophils % (A) 1 %; Eosinophils # (A) 0.1 k/uL (0-0.7); Eosinophils % (A) 3 %; HCT 35.2 % (34.0-46.0); Hypochromasia Marked; Lymphocytes # (A) 0.2 k/uL (1.0-4.8); Lymphocytes % (A) 5 %; MCH 33.1 pg (25.0-35.0); MCHC 30.4 g/dL (31.0-37.0); Macrocytosis Marked; Mean Platelet Volume 7.4; Monocytes # (A) 0.3 k/uL (0-1.0); Monocytes % (A) 6 %; Neutrophils # (A) 3.5 k/uL (1.3-7.7); Neutrophils % (A) 83 %; Platelet Count 144 k/uL (150-450); Poikilocytosis Slight; RBC 3.23 m/uL (3.80-5.40); RDW 18.3 % (11.5-15.5); WBC 4.2 k/uL (3.8-10.6)
--- NOTE | 2022-02-13 10:55 | ED ---
General Adult HPI - General Chief complaint: Shortness of Breath Stated complaint: SOB Time Seen by Provider: 02/13/22 10:00 Source: patient, RN notes reviewed, old records reviewed Mode of arrival: wheelchair Limitations: no limitations - History of Present Illness Initial comments: Patient is a 66-year-old female with past medical history remarkable for recent liver transplant surgery done almost 2 months ago, recurrent right-sided pleural effusions requiring drainage presents emergency department over concern for recurrent pleural effusion. Was just seen at our hospital and transferred to [facility] for continuity of care at that time. Recently was discharged last week. Required a thoracentesis at that time. Her current symptoms include shortness of breath on exertion. Denies any fevers, chills, cough. She is still taking antirejection medications. Denies any known sick contacts. Presents for further evaluation she believe she is having recurrence of that pleural effusion. Denies any chest pain. Denies any abdominal pain, nausea, vomiting. This is shortness of breath that is at rest as well as on exertion. - Related Data Home Medications Medication Instructions Recorded Confirmed Aspirin EC [Ecotrin] 325 mg PO DAILY 02/02/22 02/02/22 Insulin NPH Human Isophane 12 unit SQ BID@1200,1600 02/02/22 02/02/22 [humuLIN N] Insulin NPH Human Isophane 16 unit SQ DAILY@0800 02/02/22 02/02/22 [humuLIN N] Loperamide [Imodium] 2 mg PO DIRECTED PRN 02/02/22 02/02/22 Mirtazapine [Remeron] 15 mg PO HS 02/02/22 02/02/22 Multivitamins, Thera [Multivitamin 1 tab PO DAILY 02/02/22 02/02/22 (formulary)] NIFEdipine [NIFEdipine ER] 30 mg PO DAILY 02/02/22 02/02/22 Pantoprazole [Protonix] 40 mg PO DAILY 02/02/22 02/02/22 methocarbamoL [Robaxin] 500 mg PO TID PRN 02/02/22 02/02/22 predniSONE See Taper PO DAILY 02/02/22 02/02/22 Allergies Allergy/AdvReac Type Severity Reaction Status Date / Time egg white AdvReac Severe transischemic Uncoded 02/13/22 09:20 attacks Review of Systems ROS Statement: Those systems with pertinent positive or pertinent negative responses have been documented in the HPI. Review of Systems: CONST: Denies fever EYES: Denies blurry vision ENT: Denies nasal congestion C/V: Denies Chest pain RESP: Endorses shortness of breath GI: Denies abdominal pain : Denies dysuria SKIN: Denies rash. MSK: Denies joint pain. NEURO: Denies headache ROS Other: All systems not noted in ROS Statement are negative. Past Medical History Past Medical History: Hypertension Additional Past Medical History / Comment(s): hx. migraine headaches,. CIRRO HISIS OF LIVER-UNKNOWN ORIGIN History of Any Multi-Drug Resistant Organisms: None Reported Past Surgical History: Appendectomy, Tonsillectomy Additional Past Surgical History / Comment(s): D & C's, liver transplant 12/24/21, thoracentesis Past Anesthesia/Blood Transfusion Reactions: No Reported Reaction Past Psychological History: No Psychological Hx Reported Smoking Status: Never smoker Past Alcohol Use History: None Reported Past Drug Use History: None Reported - Past Family History Mother Family Medical History: Cancer General Exam - General Exam Comments Initial Comments: General: Appears in no acute distress. HEAD: Normal with no signs of head trauma. EYES: PERRLA, EOMI, conjunctiva normal, no discharge. ENT: Hearing grossly intact, normal oropharynx. RESPIRATORY: Reduced breath sounds over the right lower lobe. No wheezes or rhonchi present. Mild increased work of breathing. Hypoxic on room air to 90%. Improved on 2 L nasal cannula to 95-96%. C/V: Regular rate and rhythm. S1 and S2 auscultated, no edema, peripheral pulses 2+ and intact throughout ABD: Abd is soft, nontender, nondistended EXT: Normal range of motion, no obvious deformity SKIN: No rashes or lesions observed on exposed skin. NEURO: Alert and oriented 4. Limitations: no limitations Course Vital Signs 02/13/22 02/13/22 02/13/22 09:18 09:53 11:47 Temperature 98.1 F Pulse Rate 90 83 Respiratory 22 20 20 Rate Blood Pressure 132/74 129/76 O2 Sat by Pulse 93 L 98 Oximetry 02/13/22 14:25 Temperature Pulse Rate 68 Respiratory 18 Rate Blood Pressure 132/84 O2 Sat by Pulse 96 Oximetry Medical Decision Making - Medical Decision Making Based on the patient's presentation and physical exam, I'm concerned for recurrence of the patient's right sided pleural effusion. She was transferred last time for drainage as well as evaluation, I did discuss with her that ultimately believe it is best to be transferred to [facility] for continuity of care due to her complex case of her liver transplant. She was in agreement this plan. We will obtain infectious labs as well as a chest x-ray at this time. Screening EKG will also be obtained. She was in agreement this plan. She is saturating well on 2 L nasal cannula, 94-95%. EKG showed no signs of acute ischemia. Chest x-ray showed a moderate right- sided pleural effusion, similar to the previous size which she was transferred to [facility] for drainage.Patient's laboratory studies are relatively unremarkable. Patient does have a mild normocytic anemia which is actually improved on this visit. The Remainder the patient's labs are relatively unremarkable, with mildly elevated LFTs and alk phos. Likely related to her recent liver transplant. No abdominal symptoms at this time.. I discussed results with the patient. There does not appear to be any sign of acute infection this time. Lactic acid was within normal limits but blood cultures were sent.: Flu are still pending at this time. On reevaluation, patient remains unchanged. I did discuss results with her. I believe it is best to transfer her for continuity of care, escalation of care, as well as likely drainage of her pleural effusion. She was in agreement this plan. Spoke with [facility] over the phone, and Dr. Briones accepted the patient as a direct admit to the transplant floor. We will recheck to patient's insurance, [facility] [employer] for prior auth number. Face sheet will be faxed over to [facility]. I will call back with COVID-19 results. We did notify the insurance company. There is no prior auth number at this time. COVID and flu testing are negative. Patient will be transferred in stable condition. - Lab Data Result diagrams: 02/13/22 10:09 02/13/22 10:09 Lab Results 02/13/22 02/13/22 02/13/22 Range/Units 10:09 10:09 10:09 WBC 4.2 (3.8-10.6) k/uL RBC 3.23 L (3.80-5.40) m/uL Hgb 10.7 L D (11.4-16.0) gm/dL Hct 35.2 (34.0-46.0) % MCV 109.0 H (80.0-100.0) fL MCH 33.1 (25.0-35.0) pg MCHC 30.4 L (31.0-37.0) g/dL RDW 18.3 H (11.5-15.5) % Plt Count 144 L (150-450) k/uL MPV 7.4 Neutrophils % 83 % Lymphocytes % 5 % Monocytes % 6 % Eosinophils % 3 % Basophils % 1 % Neutrophils # 3.5 (1.3-7.7) k/uL Lymphocytes # 0.2 L (1.0-4.8) k/uL Monocytes # 0.3 (0-1.0) k/uL Eosinophils # 0.1 (0-0.7) k/uL Basophils # 0.0 (0-0.2) k/uL Manual Slide Review Performed Hypochromasia Marked Poikilocytosis Slight Anisocytosis Slight Macrocytosis Marked A PT 10.0 (9.0-12.0) sec INR 0.9 (<1.2) APTT 24.6 (22.0-30.0) sec Sodium 142 (137-145) mmol/L Potassium 4.6 (3.5-5.1) mmol/L Chloride 103 (98-107) mmol/L Carbon Dioxide 31 H (22-30) mmol/L Anion Gap 8 mmol/L BUN 42 H (7-17) mg/dL Creatinine 1.06 H (0.52-1.04) mg/dL Est GFR (CKD-EPI)AfAm 64 (>60 ml/min/1.73 sqM) Est GFR (CKD-EPI)NonAf 55 (>60 ml/min/1.73 sqM) Glucose 170 H (74-99) mg/dL Plasma Lactic Acid Chris (0.7-2.0) mmol/L Calcium 9.6 (8.4-10.2) mg/dL Magnesium 1.6 (1.6-2.3) mg/dL Total Bilirubin 1.0 (0.2-1.3) mg/dL AST 42 H (14-36) U/L ALT 68 H (4-34) U/L Alkaline Phosphatase 136 H (38-126) U/L Total Protein 6.2 L (6.3-8.2) g/dL Albumin 3.6 (3.5-5.0) g/dL Coronavirus (PCR) (Not Detectd) Influenza Type A RNA (Not Detectd) Influenza Type B (PCR) (Not Detectd) 02/13/22 02/13/22 02/13/22 Range/Units 10:09 10:09 10:09 WBC (3.8-10.6) k/uL RBC (3.80-5.40) m/uL Hgb (11.4-16.0) gm/dL Hct (34.0-46.0) % MCV (80.0-100.0) fL MCH (25.0-35.0) pg MCHC (31.0-37.0) g/dL RDW (11.5-15.5) % Plt Count (150-450) k/uL MPV Neutrophils % % Lymphocytes % % Monocytes % % Eosinophils % % Basophils % % Neutrophils # (1.3-7.7) k/uL Lymphocytes # (1.0-4.8) k/uL Monocytes # (0-1.0) k/uL Eosinophils # (0-0.7) k/uL Basophils # (0-0.2) k/uL Manual Slide Review Hypochromasia Poikilocytosis Anisocytosis Macrocytosis PT (9.0-12.0) sec INR (<1.2) APTT (22.0-30.0) sec Sodium (137-145) mmol/L Potassium (3.5-5.1) mmol/L Chloride (98-107) mmol/L Carbon Dioxide (22-30) mmol/L Anion Gap mmol/L BUN (7-17) mg/dL Creatinine (0.52-1.04) mg/dL Est GFR (CKD-EPI)AfAm (>60 ml/min/1.73 sqM) Est GFR (CKD-EPI)NonAf (>60 ml/min/1.73 sqM) Glucose (74-99) mg/dL Plasma Lactic Acid Chris 1.1 (0.7-2.0) mmol/L Calcium (8.4-10.2) mg/dL Magnesium (1.6-2.3) mg/dL Total Bilirubin (0.2-1.3) mg/dL AST (14-36) U/L ALT (4-34) U/L Alkaline Phosphatase (38-126) U/L Total Protein (6.3-8.2) g/dL Albumin (3.5-5.0) g/dL Coronavirus (PCR) Not Detected (Not Detectd) Influenza Type A RNA Not Detected (Not Detectd) Influenza Type B (PCR) Not Detected (Not Detectd) - EKG Data -: EKG Interpreted by Me EKG Comments: 12-lead Electrocardiogram Interpretation Note EKG was reviewed and interpreted by myself. 12-lead ECG performed at 0947 is interpreted by me as revealing normal sinus rhythm at a rate of 83 beats per minute. Isabel is normal. OK interval is 137 ms, QRS duration is 92 ms, QTc is 395 ms.. There were no ST or T wave abnormalities to suggest myocardial ischemia or injury. R wave progression across the precordium was satisfactory. By my interpretation this EKG is non-diagnostic for acute ischemia. Disposition Clinical Impression: Respiratory failure with hypoxia, Pleural effusion, History of liver transplant Disposition: OTHER INSTITUTION NOT DEFINED Condition: Stable Referrals: Salu Pearson MD [Primary Care Provider] - 1-2 days Time of Disposition: 11:30 - Out of Hospital Transfer - Req. Specs Out of Hospital Transfer - Requested Specifics: Other Emergency Center (Transfer to [facility] for escalation of care.)
[2022-02-13 10:56] LABS: HGB 10.7 gm/dL (11.4-16.0); INR 0.9 (<1.2); Partial Thromboplastin Time 24.6 sec (22.0-30.0)
[2022-02-13 10:58] LABS: Albumin 3.6 g/dL (3.5-5.0); Calcium 9.6 mg/dL (8.4-10.2); Magnesium 1.6 mg/dL (1.6-2.3); Potassium 4.6 mmol/L (3.5-5.1); Total Protein 6.2 g/dL (6.3-8.2)
[2022-02-13 14:28] VITALS: BP 132/84; PULSE 68; RESP 18
== END 2022-02-13 14:28 | disposition other institution (70) ==
LOC: EC 09:17
DX: J96.91 Respiratory failure, unspecified with hypoxia (principal); J90 Pleural effusion, not elsewhere classified; Z94.4 Liver transplant status; I10 Essential (primary) hypertension; G43.909 Migraine, unspecified, not intractable, without status migrainosus; Z20.822 Contact with and (suspected) exposure to COVID-19; Z91.012 Allergy to eggs
CPT/HCPCS: 36415; 71046; 80053; 83605; 83735; 85025; 85610; 85730; 87040; 87502; 87635; 93005; 99285

== ENCOUNTER → 2022-05-24 | Outpatient (CLI) | payer BC, MEDICARE | END | disposition home or self-care (01) | LOC: LABWHC1 09:48 | PROVIDERS: ATTEND Family Medicine | DX: D72.819 Decreased white blood cell count, unspecified (principal) | CPT/HCPCS: 36415; 82607; 82746 ==

== ENCOUNTER → 2022-12-04 | Outpatient (CLI) | payer MEDICARE, BC ==
[2022-12-04 11:13] LABS: Basophils # (A) 0.04 X 10*3/uL (0.00-0.10); Basophils % (A) 1.2 %; Eosinophils # (A) 0.17 X 10*3/uL (0.04-0.35); Eosinophils % (A) 4.9 %; HCT 38.5 % (37.2-46.3); HGB 12.6 g/dL (12.0-15.0); Immature Grans, Automated 0.6 %; Lymphocytes # (A) 1.04 X 10*3/uL (0.90-5.00); MCH 31.7 pg (27.0-32.0); MCHC 32.7 g/dL (32.0-37.0); MCV 96.7 fL (80.0-97.0); Mean Platelet Volume 9.7 fL (9.5-12.2); Monocytes # (A) 0.32 X 10*3/uL (0.20-1.00); Monocytes % (A) 9.2 %; NRBC Per 100 WBC 0 /100 WBCS (0.0-0.0); Neutrophils # (A) 1.88 X 10*3/uL (1.80-7.70); Neutrophils % (A) 54.1 %; Platelet Count 122 X 10*3/uL (140-440); RBC 3.98 X 10*6/uL (4.10-5.20); RDW 14.3 % (11.5-14.5); WBC 3.47 X 10*3/uL (4.50-10.00)
[2022-12-04 11:24] LABS: ALT 24 U/L (8-44); AST 18 U/L (13-35); African American GFR (CKD) 40.3 (60.0-200.0); Albumin 4.7 g/dL (3.8-4.9); Albumin/Globulin Ratio 1.72 (1.60-3.17); Alkaline Phosphatase 68 U/L (41-126); BUN/Creat Ratio 24.09 Ratio (12.00-20.00); Bilirubin, Conjugated <0.20 mg/dL (0.20-0.40); Blood Urea Nitrogen 37.1 mg/dL (9.0-27.0); Calcium 10.2 mg/dL (8.7-10.3); Carbon Dioxide 25.9 mmol/L (20.0-27.5); Chloride 101 mmol/L (96-109); Globulin 2.8 g/dL (1.6-3.3); Glucose 121 mg/dL (70-110); Non-African American GFR(CKD) 34.8 (60.0-200.0); Potassium 5.4 mmol/L (3.5-5.5); Sodium 137 mmol/L (135-145); Total Protein 7.5 g/dL (6.2-8.2)
[2022-12-05 14:42] LABS: Tacrolimus (FK506) 4.7 ng/mL (5.0-20.0)
== END | disposition home or self-care (01) ==
LOC: LABWHC1 07:16
PROVIDERS: ATTEND Family Medicine
DX: E11.9 Type 2 diabetes mellitus without complications (principal)
CPT/HCPCS: 36415; 80048; 80076; 80197; 82465; 83036; 83735; 85025; 87497

== ENCOUNTER → 2022-12-17 | Outpatient (CLI) | payer MEDICARE, BC ==
--- NOTE | 2022-12-17 11:34 | XR ---
EXAMINATION TYPE: XR lumbar spine 2 or 3V DATE OF EXAM: 12/17/2022 CLINICAL HISTORY: Low back pain for one week. TECHNIQUE: Frontal and lateral images of the lumbar spine are obtained. COMPARISON: CT abdomen 2019 FINDINGS: There are 5 lumbar type vertebral bodies redemonstrated. The lumbar spine shows grade 1 r etrolisthesis L1 on L2, L2 on L3, and L3 on L4. Vertebral body heights are maintained. There is moder ate disc space narrowing and anterior spurring with endplate sclerosis at the L4-L5 level redemonstra sharita. There is additional mild to moderate multilevel anterior and lateral spurring redemonstrated. Mu ltilevel facet arthropathy is redemonstrated. Cholecystectomy clips are now present. IMPRESSION: As above.
--- NOTE | 2022-12-17 11:37 | XR ---
EXAMINATION TYPE: XR abdomen 2V DATE OF EXAM: 12/17/2022 CLINICAL HISTORY: Lower abdominal pain for one week. TECHNIQUE: Supine and upright views of the abdomen are obtained. COMPARISON: CT abdomen 2018. FINDINGS: Scattered gas is seen in non-distended small and large bowel loops. Splenomegaly is redemo nstrated. There is new small right pleural effusion. Surgical clips in the epigastric region are now seen. Scattered tiny pelvic phleboliths. Osseous structures are intact. IMPRESSION: Overall nonobstructive bowel gas pattern. Splenomegaly redemonstrated. New small right p leural effusion raises concern for perihepatic ascites in patient with known cirrhosis.
[2022-12-17 18:13] LABS: Basophils # (A) 0.03 X 10*3/uL (0.00-0.10); Basophils % (A) 0.9 %; Eosinophils # (A) 0.24 X 10*3/uL (0.04-0.35); Eosinophils % (A) 7.1 %; HGB 12.3 g/dL (12.0-15.0); Immature Grans, Automated 0.6 %; Lymphocytes # (A) 0.89 X 10*3/uL (0.90-5.00); Lymphocytes % (A) 26.4 %; MCH 30.8 pg (27.0-32.0); MCHC 30.8 g/dL (32.0-37.0); Mean Platelet Volume 9.8 fL (9.5-12.2); Monocytes # (A) 0.28 X 10*3/uL (0.20-1.00); Monocytes % (A) 8.3 %; NRBC Per 100 WBC 0 /100 WBCS (0.0-0.0); Neutrophils # (A) 1.91 X 10*3/uL (1.80-7.70); Neutrophils % (A) 56.7 %; Platelet Count 116 X 10*3/uL (140-440); RDW 14.6 % (11.5-14.5); WBC 3.37 X 10*3/uL (4.50-10.00)
== END | disposition home or self-care (01) ==
LOC: LABWHC1 10:37
PROVIDERS: ATTEND Family Medicine
DX: R10.30 Lower abdominal pain, unspecified (principal); M54.50 Low back pain, unspecified; M53.3 Sacrococcygeal disorders, not elsewhere classified
CPT/HCPCS: 36415; 72100; 74019; 85025

== ENCOUNTER → 2023-05-09 | Outpatient (CLI) | payer MEDICARE, BC ==
[2023-05-09 11:31] LABS: Creatinine,Urine Random 138.9 mg/dL; Protein/Creatinine Ratio,Urine 0.101
[2023-05-09 17:00] LABS: % Iron Saturation 26.52 (12.00-45.00); ALT 23 U/L (8-44); AST 18 U/L (13-35); Albumin 4.5 d/dL (3.8-4.9); Albumin/Globulin Ratio 1.73 Ratio (1.60-3.17); Alkaline Phosphatase 60 U/L (41-126); BUN/Creat Ratio 22.54 Ratio (12.00-20.00); Bilirubin, Conjugated <0.20 mg/dL (0.20-0.40); Bilirubin,Unconjugated >0.20 mg/dL (0.20-1.00); Blood Urea Nitrogen 29.3 mg/dL (9.0-27.0); Calcium 9.9 mg/dL (8.7-10.3); Carbon Dioxide 22.2 mmol/L (21.6-31.8); Chloride 107 mmol/L (96-109); Globulin 2.6 d/dL (1.6-3.3); Glucose 142 mg/dL (70-110); Iron 61 UG/DL (50-170); Magnesium 1.8 mg/dL (1.5-2.4); Phosphorus 3.7 mg/dL (2.4-5.1); Potassium 4.9 mmol/L (3.5-5.5); Sodium 140 mmol/L (135-145); Total Bilirubin 0.4 mg/dL (0.3-1.2); Total Iron Binding Capacity 230 UG/DL (228-460); Total Protein 7.1 d/dL (6.2-8.2); Uric Acid 7.4 mg/dL (2.9-7.7)
[2023-05-09 17:22] LABS: Appearance,Urine Clear (Clear); Bilirubin,Urine Negative (Negative); Blood,Urine Negative (Negative); Color,Urine Yellow (Yellow); Ketones,Urine Negative (Negative); Nitrite,Urine Negative (Negative); PH, Urine 5.5; Specific Gravity,Urine 1.018 (1.001-1.030); Urobilinogen,Urine 0.2 E.U./DL
[2023-05-09 17:25] LABS: Bacteria,Urine None Seen (None Seen)
[2023-05-09 23:44] LABS: Basophils # (A) 0.02 X 10*3/uL (0.00-0.10); Basophils % (A) 0.6 %; Eosinophils # (A) 0.15 X 10*3/uL (0.04-0.35); Eosinophils % (A) 4.6 %; HCT 38.4 % (37.2-46.3); HGB 12.3 d/dL (12.0-15.0); Lymphocytes % (A) 27.7 %; MCH 31.6 pg (27.0-32.0); MCV 98.7 FL (80.0-97.0); Mean Platelet Volume 10.1 FL (9.5-12.2); Monocytes # (A) 0.29 X 10*3/uL (0.20-1.00); Monocytes % (A) 8.9 %; NRBC Per 100 WBC 0 X 10*3/uL (0.00-0.01); Neutrophils # (A) 1.87 X 10*3/uL (1.80-7.70); Neutrophils % (A) 57.6 %; Platelet Count 115 X 10*3/uL (140-440); RBC 3.89 X 10*6/uL (4.10-5.20); WBC 3.25 X 10*3/uL (4.50-10.00)
== END | disposition home or self-care (01) ==
LOC: LABWHC1 08:23
PROVIDERS: ATTEND Internal Medicine Nephrology
DX: N18.32 Chronic kidney disease, stage 3b (principal); D63.1 Anemia in chronic kidney disease; N39.0 Urinary tract infection, site not specified; E55.9 Vitamin D deficiency, unspecified; N25.81 Secondary hyperparathyroidism of renal origin; M10.9 Gout, unspecified
CPT/HCPCS: 36415; 80048; 80076; 80197; 81001; 82043; 82306; 82465; 82570; 82728; 83540; 83550; 83735; 83970; 84100; 84156; 84550; 85025

== ENCOUNTER → 2023-09-26 | Outpatient (CLI) | payer MEDICARE, BC ==
--- NOTE | 2023-09-27 06:14 | MR ---
EXAMINATION TYPE: MR abdomen wo/w con DATE OF EXAM: 09/26/2023 COMPARISON: None at this institution. HISTORY: F/U to CT 2 weeks ago, Liver transplant December 2021. CONTRAST: Standard multiplanar, multisequence MRI departmental protocol images were obtained without contrast a nd with 7.5 mL intravenous Gadobutrol gadolinium contrast. FINDINGS: Liver: Transplant liver is normal in size in the right upper quadrant. No suspicious solid or cystic masses or biliary dilatation is identified. Dynamic postcontrast imaging shows no true hepatic arteri al phase. There is patency and nondilatation of the main portal vein and central branching veins. The re are patent hepatic veins draining into the IVC. No surrounding ascites is seen. Other: There is at least small layering right pleural effusion and associated right lung compressive atelectasis. Spleen is upper limits of normal in size at 13.4 cm long axis. The pancreas, both adrena l glands, and both kidneys appear within normal limits. There is no abnormal small or large bowel dil atation. No AAA. No intra-abdominal ascites. There is degenerative spurring and disc space narrowing with endplate changes at a few levels in the lumbar spine. IMPRESSION: Normal-sized liver without concerning mass or ductal dilatation. No surrounding ascites. Homogeneous enhancement noted. There is at least small right pleural effusion and associated right ba silar compressive atelectasis.
== END | disposition home or self-care (01) ==
LOC: RADMRIMAIN 17:00
PROVIDERS: ATTEND Internal Medicine Gastroenterology
DX: J90 Pleural effusion, not elsewhere classified (principal); J98.11 Atelectasis; Z94.4 Liver transplant status
CPT/HCPCS: 74183; A9585

== ENCOUNTER → 2023-11-17 | Outpatient (CLI) | payer MEDICARE, BC ==
[2023-11-17 18:28] LABS: Basophils # (A) 0.02 X 10*3/uL (0.00-0.10); Basophils % (A) 0.5 %; Eosinophils # (A) 0.24 X 10*3/uL (0.04-0.35); Eosinophils % (A) 5.6 %; HCT 37.9 % (37.2-46.3); HGB 12.6 g/dL (12.0-15.0); Lymphocytes # (A) 0.96 X 10*3/uL (0.90-5.00); Lymphocytes % (A) 22.3 %; MCH 31.4 pg (27.0-32.0); MCHC 33.2 g/dL (32.0-37.0); MCV 94.5 FL (80.0-97.0); Mean Platelet Volume 9.4 FL (9.5-12.2); Monocytes # (A) 0.29 X 10*3/uL (0.20-1.00); Monocytes % (A) 6.7 %; NRBC Per 100 WBC 0 X 10*3/uL (0.00-0.01); Neutrophils # (A) 2.79 X 10*3/uL (1.80-7.70); Neutrophils % (A) 64.7 %; Platelet Count 141 X 10*3/uL (140-440); RBC 4.01 X 10*6/uL (4.10-5.20); RDW 15.1 % (11.5-14.5); WBC 4.31 X 10*3/uL (4.50-10.00)
[2023-11-17 18:58] LABS: % Iron Saturation 24.26 (12.00-45.00); Iron 57 UG/DL (50-170); Magnesium 1.9 mg/dL (1.5-2.4); Phosphorus 3.4 mg/dL (2.4-5.1); Total Iron Binding Capacity 235 UG/DL (228-460); Uric Acid 6.1 mg/dL (2.9-7.7)
[2023-11-17 18:59] LABS: BUN/Creat Ratio 22.64 Ratio (12.00-20.00); Blood Urea Nitrogen 31.7 mg/dL (9.0-27.0); Calcium 9.6 mg/dL (8.7-10.3); Carbon Dioxide 22.9 mmol/L (21.6-31.8); Chloride 104 mmol/L (96-109); Glucose 139 mg/dL (70-110); Potassium 4.3 mmol/L (3.5-5.5); Sodium 140 mmol/L (135-145)
[2023-11-17 19:55] LABS: Appearance,Urine Clear (Clear); Bilirubin,Urine Negative (Negative); Blood,Urine Negative (Negative); Color,Urine Yellow (Yellow); Ketones,Urine Negative (Negative); Nitrite,Urine Negative (Negative); PH, Urine 5.5; Specific Gravity,Urine 1.021 (1.001-1.030); Urobilinogen,Urine 0.2 E.U./DL
== END | disposition home or self-care (01) ==
LOC: LABWHC1 15:17
PROVIDERS: ATTEND Internal Medicine Nephrology
DX: N18.32 Chronic kidney disease, stage 3b (principal)
CPT/HCPCS: 36415; 80048; 81003; 82043; 82108; 82306; 82570; 82728; 83540; 83550; 83735; 83970; 84100; 84550; 85025

== ENCOUNTER → 2024-02-06 | Outpatient (CLI) | payer MEDICARE, BC ==
[2024-02-06 18:26] LABS: Total Protein,Urine Random 20.3 mg/dL (0.0-13.5)
== END | disposition home or self-care (01) ==
LOC: LABWHC1 08:53 → EDSTATUS 08:57
PROVIDERS: ATTEND Internal Medicine
DX: Z94.4 Liver transplant status (principal)
CPT/HCPCS: 82570; 84156

== ENCOUNTER → 2024-06-15 | Outpatient (CLI) | payer MEDICARE, BC ==
[2024-06-15 16:30] LABS: Basophils # (A) 0.03 X 10*3/uL (0.00-0.10); Basophils % (A) 0.7 %; Eosinophils # (A) 0.17 X 10*3/uL (0.04-0.35); Eosinophils % (A) 3.7 %; HCT 42.4 % (37.2-46.3); HGB 13.8 g/dL (12.0-15.0); Lymphocytes # (A) 1.04 X 10*3/uL (0.90-5.00); Lymphocytes % (A) 22.8 %; MCH 31.5 pg (27.0-32.0); MCHC 32.5 g/dL (32.0-37.0); MCV 96.8 FL (80.0-97.0); Mean Platelet Volume 9.9 FL (9.5-12.2); Monocytes # (A) 0.31 X 10*3/uL (0.20-1.00); Monocytes % (A) 6.8 %; NRBC Per 100 WBC 0 X 10*3/uL (0.00-0.01); Neutrophils % (A) 65.6 %; Platelet Count 146 X 10*3/uL (140-440); RBC 4.38 X 10*6/uL (4.10-5.20); RDW 14.2 % (11.5-14.5); WBC 4.57 X 10*3/uL (4.50-10.00)
[2024-06-15 16:51] LABS: ALT 17 U/L (8-44); AST 15 U/L (13-35); Albumin 4.7 g/dL (3.8-4.9); Albumin/Globulin Ratio 1.57 Ratio (1.60-3.17); Alkaline Phosphatase 60 U/L (41-126); BUN/Creat Ratio 16.93 Ratio (12.00-20.00); Bilirubin, Conjugated <0.20 mg/dL (0.20-0.40); Bilirubin,Unconjugated >0.40 mg/dL (0.20-1.00); Blood Urea Nitrogen 25.4 mg/dL (9.0-27.0); Calcium 10.3 mg/dL (8.7-10.3); Carbon Dioxide 25.8 mmol/L (21.6-31.8); Chloride 106 mmol/L (96-109); Glucose 151 mg/dL (70-110); Magnesium 1.8 mg/dL (1.5-2.4); Potassium 5.1 mmol/L (3.5-5.5); Sodium 142 mmol/L (135-145); Total Bilirubin 0.6 mg/dL (0.3-1.2); Total Protein 7.7 g/dL (6.2-8.2)
== END | disposition home or self-care (01) ==
LOC: LABWHC1 09:45
PROVIDERS: ATTEND Internal Medicine Gastroenterology
DX: D84.9 Immunodeficiency, unspecified (principal); R73.9 Hyperglycemia, unspecified; Z94.4 Liver transplant status
CPT/HCPCS: 36415; 80048; 80076; 80197; 82465; 83036; 83735; 85025

== ENCOUNTER 2025-03-30 17:39 | Observation (INO) | payer MEDICARE, BC ==
--- NOTE | 2025-03-30 18:24 | ED ---
General Adult HPI - General Chief complaint: Neuro Symptoms/Deficit Stated complaint: headache, cough Time Seen by Provider: 03/30/25 18:07 Source: patient, family, RN notes reviewed Mode of arrival: wheelchair Limitations: no limitations - History of Present Illness Initial comments: Patient is a 69-year-old female present to the emergency department with headache. Majority of history comes from daughter as patient answers questions and appropriately. Patient did stay home from work this morning as she did not feel well. Grand daughter states this was sometime between 8 and 10. At 3:00 patient did complain of a headache. Patient has had confusion since that time. Grand daughter states that confusion has happened several times previously a ssociated with patient's headaches, possibly 5 or 6 times that she is aware of. Patient has had a mild cough today. Grand daughter adds patient also does have history of previous liver problems - Related Data Home Medications Medication Instructions Recorded Confirmed Aspirin EC [Ecotrin] 325 mg PO DAILY 02/02/22 02/02/22 Insulin NPH Human Isophane 12 unit SQ BID@1200,1600 02/02/22 02/02/22 [humuLIN N] Insulin NPH Human Isophane 16 unit SQ DAILY@0800 02/02/22 02/02/22 [humuLIN N] Loperamide [Imodium] 2 mg PO DIRECTED PRN 02/02/22 02/02/22 Mirtazapine [Remeron] 15 mg PO HS 02/02/22 02/02/22 Multivitamins, Thera [Multivitamin 1 tab PO DAILY 02/02/22 02/02/22 (formulary)] NIFEdipine [NIFEdipine ER] 30 mg PO DAILY 02/02/22 02/02/22 Pantoprazole [Protonix] 40 mg PO DAILY 02/02/22 02/02/22 methocarbamoL [Robaxin] 500 mg PO TID PRN 02/02/22 02/02/22 predniSONE See Taper PO DAILY 02/02/22 02/02/22 Allergies Allergy/AdvReac Type Severity Reaction Status Date / Time egg white AdvReac Severe transischemic Uncoded 02/13/22 09:20 attacks Review of Systems ROS Statement: Those systems with pertinent positive or pertinent negative responses have been documented in the HPI. ROS Other: All systems not noted in ROS Statement are negative. Limitations: ROS unobtainable due to patients medical condition Respiratory: Reports: as per HPI, cough Gastrointestinal: Reports: nausea Past Medical History Past Medical History: Hypertension Additional Past Medical History / Comment(s): hx. migraine headaches,. CIRROHISIS OF LIVER-UNKNOWN ORIGIN History of Any Multi-Drug Resistant Organisms: None Reported Past Surgical History: Appendectomy, Tonsillectomy Additional Past Surgical History / Comment(s): D & C's, liver transplant 12/24/21, thoracentesis Past Anesthesia/Blood Transfusion Reactions: No Reported Reaction Past Psychological History: No Psychological Hx Reported Smoking Status: Never smoker Past Alcohol Use History: None Reported Past Drug Use History: None Reported - Past Family History Mother Family Medical History: Cancer General Exam Limitations: no limitations General appearance: alert, in no apparent distress, other (Patient does follow commands appropriately however does not answer questions appropriately) Head exam: Present: atraumatic Eye exam: Present: normal appearance, PERRL, EOMI ENT exam: Present: normal oropharynx Neck exam: Present: normal inspection. Absent: tenderness, meningismus Respiratory exam: Present: normal lung sounds bilaterally Cardiovascular Exam: Present: regular rate, normal rhythm GI/Abdominal exam: Present: soft. Absent: tenderness Extremities exam: Present: normal inspection. Absent: pedal edema, calf tenderness Neurological exam: Present: alert, altered, CN II-XII intact. Absent: motor sensory deficit Expanded Neurological exam: Present: protecting the airway, other (Patient answers questions inappropriately.) Cranial nerves: EOM's Intact: Normal Motor strength exam: RUE: 5, LUE: 5, RLE: 5, LLE: 5 Eye Response: (4) open spontaneously Motor Response: (6) obeys commands Verbal Response: (3) inappropriate words Psychiatric exam: Present: normal affect, normal mood Skin exam: Present: normal color Course Vital Signs 03/30/25 03/30/25 18:01 18:25 Temperature 98 F Pulse Rate 82 74 Respiratory 20 20 Rate Blood Pressure 159/83 152/77 O2 Sat by Pulse 94 L 100 Oximetry EKG Findings - EKG Results: EKG: interpreted by ERMD, sinus rhythm, normal axis, normal QRS, normal ST/T Medical Decision Making - Medical Decision Making Was pt. sent in by a medical professional or institution (, PA, POLO COACH, urgent care, hospital, or residential...) When possible be specific @ -No Did you speak to anyone other than the patient for history (EMS, parent, family, police, friend...)? What history was obtained from this source @ -Granddaughter and later daughter provide history as patient cannot provide an accurate history. Daughter confirms that patient has history of similar s ymptoms however has been many years since that time, possibly up to 10 years Did you review nursing and triage notes (agree or disagree)? Why? @ -I reviewed and agree with nursing and triage notes Were old charts reviewed (outside hosp., previous admission, EMS record, old EKG, old radiological studies, urgent care reports/EKG's, residential records)? Report findings @ -No old charts were reviewed Differential Diagnosis (chest pain, altered mental status, abdominal pain women, abdominal pain men, vaginal bleeding, weakness, fever, dyspnea, syncope, headache, dizziness, GI bleed, back pain, seizure, CVA, palpatations, mental health, musculoskeletal)? @ -Differential Headache: Migraine, tension, cluster, carbon monoxide, central venous thrombosis, pension karma temporal arteritis, acute closure glaucoma, intercranial hemorrhage, mastoiditis, sinusitis, head injury, this is not meant to be an all-inclusive list. EKG interpreted by me (3pts min.). @ -As above X-rays interpreted by me (1pt min.). @ -Chest x-ray shows no acute process CT interpreted by me (1pt min.). @ -CT brain shows no acute process U/S interpreted by me (1pt. min.). @ -None done What testing was considered but not performed or refused? (CT, X-rays, U/S, labs)? Why? @ -CT angiogram ordered however pending What meds were considered but not given or refused? Why? @ -None Did you discuss the management of the patient with other professionals (professionals i.e. , PA, POLO COACH, lab, RT, psych nurse, social work professor, development director, teacher, global chief creative officer, major case detective)? Give summary @ -Case was discussed with Dr. Bañuelos who will admit covering Dr. Cortez Was smoking cessation discussed for >3mins.? @ -No Was critical care preformed (if so, how long)? @ -No Were there social determinants of health that impacted care today? How? (Homelessness, low income, unemployed, alcoholism, drug addiction, transportation, low edu. Level, literacy, decrease access to med. care, group home, rehab)? @ -No Was there de-escalation of care discussed even if they declined (Discuss DNR or withdrawal of care, Hospice)? DNR status @ -No What co-morbidities impacted this encounter? (DM, HTN, Smoking, COPD, CAD, Cancer, CVA, ARF, Chemo, Hep., AIDS, mental health diagnosis, sleep apnea, morbid obesity)? @ -History of headaches with speech problems similar to this Was patient admitted / discharged? Hospital course, mention meds given and route, prescriptions, significant lab abnormalities, going to OR and other pertinent info. @ -Patient presents with concern for inappropriate speech and headache. Initial evaluation at this time is unremarkable. Other than speech there is no other neurological deficits. Patient will be admitted with neuro consult. [place] orders written. Patient reevaluated, patient and family updated Undiagnosed new problem with uncertain prognosis? @ -No Drug Therapy requiring intensive monitoring for toxicity (Heparin, Nitro, Insulin, Cardizem)? @ -No Were any procedures done? @ -No Diagnosis/symptom? @ -Cephalgia, expressive aphasia Acute, or Chronic, or Acute on Chronic? @ -Acute, acute Uncomplicated (without systemic symptoms) or Complicated (systemic symptoms)? @ -Default Side effects of treatment? @ -No Exacerbation, Progression, or Severe Exacerbation? @ -No Poses a threat to life or bodily function? How? (Chest pain, USA, SC, pneumonia, PE, COPD, DKA, ARF, appy, cholecystitis, CVA, Diverticulitis, Homicidal, Suicidal, threat to staff... and all critical care pts) @ -No - Lab Data Result diagrams: 03/30/25 18:22 03/30/25 18:22 Lab Results 03/30/25 03/30/25 03/30/25 Range/Units 18:22 18:22 18:22 WBC 7.45 (4.50-10.00) 10*3/uL RBC 4.38 (4.10-5.20) 10*6/uL Hgb 13.6 (12.0-15.0) g/dL Hct 40.1 (37.2-46.3) % MCV 91.6 (80.0-97.0) fL MCH 31.1 (27.0-32.0) pg MCHC 33.9 (32.0-37.0) g/dL Plt Count 154 (140-440) 10*3/uL MPV 9.5 (9.5-12.2) fL Immature Gran % (Auto) 0.3 % Neutrophils % 79.4 % Lymphocytes % 14.4 % Monocytes % 4.0 % Eosinophils % 1.6 % Basophils % 0.3 % Immature Gran # 0.02 (0.00-0.04) 10*3/uL Neutrophils # 5.92 (1.80-7.70) 10*3/uL Lymphocytes # 1.07 (0.90-5.00) 10*3/uL Monocytes # 0.30 (0.20-1.00) 10*3/uL Eosinophils # 0.12 (0.04-0.35) 10*3/uL Basophils # 0.02 (0.00-0.10) 10*3/uL PT 10.3 (10.0-12.5) sec INR 0.9 (<1.2) APTT 26.1 (22.0-30.0) sec Sodium 138 (137-145) mmol/L Potassium 5.1 (3.5-5.1) mmol/L Chloride 105 (98-107) mmol/L Carbon Dioxide 20 L (22-30) mmol/L Anion Gap 13 mmol/L BUN 34 H (7-17) mg/dL Creatinine 1.69 H (0.52-1.04) mg/dL Est GFR (CKD-EPI)AfAm 36 (>60 ml/min/1.73 sqM) Est GFR (CKD-EPI)NonAf 31 (>60 ml/min/1.73 sqM) Glucose 196 H (74-99) mg/dL Calcium 9.8 (8.4-10.2) mg/dL Total Bilirubin 1.0 (0.2-1.3) mg/dL AST 19 (14-36) U/L ALT 19 (4-34) U/L Alkaline Phosphatase 72 (38-126) U/L Ammonia (<30) umol/L Creatine Kinase 46 (30-135) U/L Troponin I (0.000-0.034) ng/mL Total Protein 7.7 (6.3-8.2) g/dL Albumin 4.7 (3.5-5.0) g/dL Influenza Type A (PCR) (Not Detectd) Influenza Type B (PCR) (Not Detectd) RSV (PCR) (Not Detectd) SARS-CoV-2 (PCR) (Not Detectd) 03/30/25 03/30/25 03/30/25 Range/Units 18:22 18:22 18:22 WBC (4.50-10.00) 10*3/uL RBC (4.10-5.20) 10*6/uL Hgb (12.0-15.0) g/dL Hct (37.2-46.3) % MCV (80.0-97.0) fL MCH (27.0-32.0) pg MCHC (32.0-37.0) g/dL Plt Count (140-440) 10*3/uL MPV (9.5-12.2) fL Immature Gran % (Auto) % Neutrophils % % Lymphocytes % % Monocytes % % Eosinophils % % Basophils % % Immature Gran # (0.00-0.04) 10*3/uL Neutrophils # (1.80-7.70) 10*3/uL Lymphocytes # (0.90-5.00) 10*3/uL Monocytes # (0.20-1.00) 10*3/uL Eosinophils # (0.04-0.35) 10*3/uL Basophils # (0.00-0.10) 10*3/uL PT (10.0-12.5) sec INR (<1.2) APTT (22.0-30.0) sec Sodium (137-145) mmol/L Potassium (3.5-5.1) mmol/L Chloride (98-107) mmol/L Carbon Dioxide (22-30) mmol/L Anion Gap mmol/L BUN (7-17) mg/dL Creatinine (0.52-1.04) mg/dL Est GFR (CKD-EPI)AfAm (>60 ml/min/1.73 sqM) Est GFR (CKD-EPI)NonAf (>60 ml/min/1.73 sqM) Glucose (74-99) mg/dL Calcium (8.4-10.2) mg/dL Total Bilirubin (0.2-1.3) mg/dL AST (14-36) U/L ALT (4-34) U/L Alkaline Phosphatase (38-126) U/L Ammonia <9 (<30) umol/L Creatine Kinase (30-135) U/L Troponin I <0.012 (0.000-0.034) ng/mL Total Protein (6.3-8.2) g/dL Albumin (3.5-5.0) g/dL Influenza Type A (PCR) Not Detected (Not Detectd) Influenza Type B (PCR) Not Detected (Not Detectd) RSV (PCR) Not Detected (Not Detectd) SARS-CoV-2 (PCR) Not Detected (Not Detectd) Disposition Clinical Impression: Cephalgia Disposition: ADMITTED IP TO THIS HOSP Is patient prescribed a controlled substance at d/c from ED?: No Referrals: None,Stated [REFERRING] - 1-2 days Time of Disposition: 20:47
[2025-03-30] MEDS: METOCLOPRAMIDE 5 MG/ML 2 ML VIAL IVP STA (18:30)
[2025-03-30] MEDS: ACETAMINOPHEN IV (For NPO) 1,000 MG in EMPTY BAG 1 BAG IVPB STA (18:34)
[2025-03-30 18:36] LABS: Basophils # (A) 0.02 10*3/uL (0.00-0.10); Basophils % (A) 0.3 %; Eosinophils # (A) 0.12 10*3/uL (0.04-0.35); Eosinophils % (A) 1.6 %; HCT 40.1 % (37.2-46.3); HGB 13.6 g/dL (12.0-15.0); Lymphocytes # (A) 1.07 10*3/uL (0.90-5.00); Lymphocytes % (A) 14.4 %; MCH 31.1 pg (27.0-32.0); MCHC 33.9 g/dL (32.0-37.0); MCV 91.6 fL (80.0-97.0); Monocytes # (A) 0.30 10*3/uL (0.20-1.00); Monocytes % (A) 4.0 %; Neutrophils # (A) 5.92 10*3/uL (1.80-7.70); Neutrophils % (A) 79.4 %; Platelet Count 154 10*3/uL (140-440); RBC 4.38 10*6/uL (4.10-5.20); RDW 15.1 % (11.5-14.5); WBC 7.45 10*3/uL (4.50-10.00)
[2025-03-30 18:42] LABS: ALT 19 U/L (4-34); AST 19 U/L (14-36); African American GFR (CKD) 36 (>60 ml/min/1.73 sqM); Albumin 4.7 g/dL (3.5-5.0); Alkaline Phosphatase 72 U/L (38-126); Anion Gap 13 mmol/L; Blood Urea Nitrogen 34 mg/dL (7-17); Calcium 9.8 mg/dL (8.4-10.2); Carbon Dioxide 20 mmol/L (22-30); Chloride 105 mmol/L (98-107); Creatine Kinase 46 U/L (30-135); Glucose 196 mg/dL (74-99); Non-African American GFR(CKD) 31 (>60 ml/min/1.73 sqM); Potassium 5.1 mmol/L (3.5-5.1); Sodium 138 mmol/L (137-145); Total Protein 7.7 g/dL (6.3-8.2)
[2025-03-30 18:47] LABS: INR 0.9 (<1.2); Prothrombin Time 10.3 sec (10.0-12.5)
[2025-03-30 18:48] LABS: Partial Thromboplastin Time 26.1 sec (22.0-30.0)
[2025-03-30 19:03] LABS: RSV Not Detected (Not Detectd)
--- NOTE | 2025-03-30 19:55 | XR ---
EXAMINATION TYPE: XR chest 2V DATE OF EXAM: 03/30/2025 7:48 PM COMPARISON: Chest radiographs from 02/13/2022. CLINICAL INDICATION: Female, 69 years old with history of cough; PHH TECHNIQUE: XR chest 2V Frontal and lateral views of the chest. FINDINGS: Lungs/Pleura: There is no evidence of pleural effusion, focal consolidation, or pneumothorax. Pulmonary vascularity: Unremarkable. Heart/mediastinum: Cardiomediastinal silhouette is unremarkable. Musculoskeletal: No acute osseous pathology. IMPRESSION: No acute cardiopulmonary disease/process. [facility], , 03/30/2025 7:53 PM
[2025-03-30] MEDS: SODIUM CHLORIDE 0.9% 1,000 ML IV STA (20:10)
--- NOTE | 2025-03-30 20:26 | CT ---
EXAMINATION TYPE: CT brain wo con DATE OF EXAM: 03/30/2025 8:06 PM COMPARISON: None. CLINICAL INDICATION: Female, 69 years old with history of Neuro deficit, acute, stroke suspected, alt ered TECHNIQUE: Brain: Axial CT images of the brain were obtained with coronal and sagittal reformats created and rev iewed. Contrast used: None. Oral contrast used: None. CT DLP: 1087 mGycm, Automated exposure control for dose reduction was used. FINDINGS: Brain: Extra-axial spaces: No abnormal extra-axial fluid collections. Ventricular system: Dilatation in proportion to cerebral atrophy. Cerebral parenchyma: Cerebral atrophy. No acute intraparenchymal hemorrhage or mass effect. The lua -white junction is well differentiated. Scattered hypoattenuating areas are seen within the white mat ter. Cerebellum: Unremarkable. Mass effect: No evidence of midline shift. Intracranial vasculature: unremarkable Soft tissues: Normal. Calvarium/osseous structures: No depressed skull fracture. Paranasal sinuses and mastoid air cells: Mild scattered paranasal sinus disease. Visualized orbits: Bilateral aphakia IMPRESSION: 1. No acute intracranial process. 2. Nonspecific white matter changes, likely secondary to chronic small vessel ischemic disease. [facility], , 03/30/2025 8:24 PM
[2025-03-30] MEDS ORDERED: NALOXONE 0.4 MG/ML 1 ML VIAL IV PRN (20:48)
[2025-03-30] MEDS ORDERED: ACETAMINOPHEN TAB 325 MG TAB PO PRN (20:48)
[2025-03-30] MEDS: MORPHINE SULFATE 4 MG/ML SYRINGE IVP STA (20:55)
[2025-03-30] MEDS: ONDANSETRON 4 MG/2 ML VIAL IVP PRN (20:56)
--- NOTE | 2025-03-30 21:03 | CT ---
EXAMINATION TYPE: CT angio head neck DATE OF EXAM: 03/30/2025 8:30 PM COMPARISON: CT. CLINICAL INDICATION: Female, 69 years old with history of Neuro deficit, acute, stroke suspected; PHH , migraine since 1500 now confusion TECHNIQUE: Axially acquired helical CT angiogram of the head and neck was obtained with contrast. Axi al images are supplemented with 3D reconstructions and MIP images which were post-processed at an in dependent workstation. NASCET criteria used. Contrast used:65 ml mL of Isovue 370 with IV Contrast, Oral contrast used: None. CT DLP: 537.3 mGycm, Automated exposure control for dose reduction was used. FINDINGS: CTA HEAD: No evidence of acute intracranial hemorrhage, mass effect, or midline shift. The ventricles, sulci, a nd cisterns are unremarkable. Lateral aphakia. Vertebral arteries: The vertebral arteries are patent. Vertebral artery dominance: Left Basilar artery: The basilar artery is intact. The basilar artery bifurcation is normal. Internal Carotid arteries: The cervical, petrous, cavernous and supraclinoid segments are normal. SUSAN: Patent with no evidence of aneurysm. ACOM: Present without evidence of aneurysm. MCA: Patent with no evidence of aneurysm. RN LABOR DELIVERY: Patent with no evidence of aneurysm. PCOM: Hypoplastic bilaterally. Dural sinuses: Patent. CTA NECK: Right Carotid System: The common carotid and external carotid arteries are patent. There is less than 25% stenosis at the c arotid bifurcation secondary to calcified plaque. The rest of the internal carotid artery is patent. Left Carotid System: The common carotid and external carotid arteries are patent. There is less than 25% stenosis at the c arotid bifurcation secondary to calcified plaque. The rest of the internal carotid artery is patent. Vertebral arteries are patent without evidence hemodynamically significant stenosis. There is a three-vessel aortic arch. The origins of the great vessels are patent. No evidence of hemo dynamically significant stenosis. IMPRESSION: 1. No evidence of dissection of the cervical internal carotid arteries or vertebral arteries. 2. No any evidence of significant stenosis at the carotid bifurcations. 3. No evidence of intracranial high-grade stenosis or intracranial aneurysm. [facility], , 03/30/2025 9:01 PM
[2025-03-30] MEDS: SODIUM CHLORIDE 0.9% 1,000 ML IV SCH (21:23)
[2025-03-31] MEDS: MORPHINE SULFATE 4 MG/ML SYRINGE IV PRN (02:27)
[2025-03-31 08:05] VITALS: RESP 17
[2025-03-31] MEDS: ASPIRIN 81 MG PO SCH (11:45)
[2025-03-31] MEDS ORDERED: TACROLIMUS 1 MG CAP PO SCH (13:45)
--- NOTE | 2025-03-31 14:03 | P.CNNES ---
History of Present Illness Consult date: 03/31/25 Requesting physician: Lucio Montelongo Reason for Consult: Cephalgia with expressive aphasia History of Present Illness: Patient is a 69-year-old right-handed female, with history of migraines, hypertension, came to the hospital, yesterday at 6:01 PM for acute migraine and aphasia. Patient states that she started having headache yesterday at about 2:30 PM like her typical migraine. It kept on getting worse. Around 3 PM, patient spoke to her daughter, told her about her migraine and she was having slight difficulty speaking but this is usual with her migraine. At 3:30 PM she took her Nurtec. She rated her headache 10/10. At 4 PM she again spoke to her daughter on the phone and patient was completely aphasic, could not talk could not get words out or was gibberish. There was no facial droop, problem with the vision, or any numbness tingling or focal weakness. He continued with headache, with nausea vomiting, light and noise sensitivity. The headache was frontal and on the top aching throbbing and pressure. Family brought her to the ER. Vital signs on arrival blood pressure 159/83 pulse 82 temperature 98.0. Blood test shows normal CBC, PT PTT, normal electrolytes, BUN 34 creatinine 1.69. Hepatic panel is normal CK and troponins are normal. Influenza, RSV and coronavirus PCR negative. EKG showed sinus rhythm. Chest x-ray showed no acute cardiopulmonary process. CT head revealed no acute intracranial process. Nonspecific white matter changes, likely secondary to chronic small vessel ischemic disease. I personally reviewed CT head, agree with the findings. Patient did not receive TNK. Her symptoms were improving. Patient's daughter states that 11 PM before she went home, patient was still having significant speech difficulty, sometimes talking gibberish. However this morning her speech is back to normal. Her headache has resolved. Patient has history of hypertension, denies diabetes. She does have hyperlipidemia. No tobacco or alcohol use. Patient has history of liver transplant in 2021. Patient has history of migraines since she was in her 20s. Patient states that she had only 1 time this severe migraine with this significant speech difficulty, which was about over 20 years ago. Home medications include aspirin 81 mg, Prograf, Protonix, Procardia XL, Cozaar, magnesium. Review of Systems All pertinent positive and negative review of systems mentioned HPI, otherwise unremarkable. Past Medical History Past Medical History: Hypertension Additional Past Medical History / Comment(s): hx. migraine headaches,. CIRROHISIS OF LIVER-UNKNOWN ORIGIN. Liver Transplant History of Any Multi-Drug Resistant Organisms: None Reported Past Surgical History: Appendectomy, Tonsillectomy Additional Past Surgical History / Comment(s): D & C's, liver transplant 12/24/21, thoracentesis Past Anesthesia/Blood Transfusion Reactions: No Reported Reaction Smoking Status: Never smoker - Past Family History Mother Family Medical History: Cancer Medications and Allergies Home Medications Medication Instructions Recorded Confirmed Type Pantoprazole [Protonix] 40 mg PO DAILY 02/02/22 03/31/25 History Aspirin EC [Ecotrin Low Dose] 81 mg PO DAILY 03/31/25 03/31/25 History Dicyclomine [Bentyl] 20 mg PO QID 03/31/25 03/31/25 History Losartan [Cozaar] 25 mg PO DAILY 03/31/25 03/31/25 History Magnesium Chloride [Mag64] 64 mg PO W/SUPPER 03/31/25 03/31/25 History NIFEdipine XL [Procardia Xl] 90 mg PO DAILY 03/31/25 03/31/25 History Patiromer Calcium Sorbitex 1 packet PO W/LUNCH 03/31/25 03/31/25 History [Veltassa] Tacrolimus [Prograf] 0.5 mg PO W/SUPPER 03/31/25 03/31/25 History Tacrolimus [Prograf] 1 mg PO BID-W/MEALS 03/31/25 03/31/25 History Allergies Allergy/AdvReac Type Severity Reaction Status Date / Time egg white AdvReac Severe transischemic Uncoded 03/31/25 08:27 attacks Physical Examination - Vital Signs Vital Signs: Vital Signs Temp Pulse Pulse Resp BP BP Pulse Ox 03/31/25 08:00 65 17 03/31/25 07:07 98.1 F 65 17 109/73 97 03/31/25 00:56 97.6 F 71 18 127/74 96 03/30/25 23:35 97.9 F 70 16 130/81 99 03/30/25 22:52 73 18 140/64 99 03/30/25 18:25 74 20 152/77 100 03/30/25 18:01 98 F 82 20 159/83 94 L Intake and Output 03/30/25 03/31/25 03/31/25 22:59 06:59 14:59 Intake Total 0 Balance 0 Intake: Oral 0 Other: Voiding Method External Catheter External Catheter # Voids 1 Weight 81.647 kg Patient is an elderly female, very pleasant, in no acute distress. Patient is alert awake oriented to time place and person. Speech and language functions are normal. Patient still having some paraphasic errors while conversation. She had significant difficulty recalling knuckles, but was able to get it correct. Patient can name and repeat very well. No aphasia or dysarthria. Attention, concentration and fund of knowledge is adequate. On cranial nerve examination, pupils are equal, round and reacting to light, vis ual underwood are full on confrontation, with no neglect on double simultaneous stimulation. Extraocular muscles are intact with no nystagmus. Face is symmetric, tongue protrudes to the midline. Palatal elevation and sensation normal, hearing and shoulder shrug normal, facial sensation normal. On muscle strength testing, there is no pronator drift and the strength is normal in arms and legs distally and proximally. Deep tendon reflexes are symmetric 1+ at the biceps, 1+ peculiarities, 2 at the knees 1 ankles and plantars downgoing. Sensory to touch is equal with no neglect on double simultaneous stimulation. Cerebellar function showed no ataxia for [id number]-[id number] testing. No dysdiadoc hokinesia. No ataxia for fptj-ed-vrhd testing on either side. Tone and bulk of muscles normal. Gait deferred.. On general examination, there is no carotid bruit or murmur, S1-S2 audible. Chest is clear on consultation. Abdomen is soft nontender. No organomegaly, bowel sounds present. Peripheral pulses are present. No peripheral edema. Results - Laboratory Findings CBC and BMP: 03/30/25 18:22 03/30/25 18:22 Abnormal Lab Findings: Abnormal Labs 03/30/25 18:22 Carbon Dioxide 20 L BUN 34 H Creatinine 1.69 H Glucose 196 H Assessment and Plan Assessment: * Probable complex migraine. Patient's speech difficulty lasted for more than 8 hours, which is unusual for migraines. Patient still having some paraphasic errors while conversation. Rule out CVA. * Hypertension * Chronic migraines * Hyperlipidemia * History of liver transplant Plan: Patient's migraine has resolved. Her aphasia has resolved, although patient still was noted to have some paraphasic errors. Patient will undergo stroke workup. MRI of the brain without contrast, evaluate for acute CVA 2-D echo with bubble study to rule out PFO CTA head and neck showed: No evidence of dissection of the cervical internal carotid arteries or vertebral arteries. No evidence of significant stenosis at the carotid bifurcations. No evidence of intracranial high-grade stenosis or intracranial aneurysm. Fasting a.m. lipid panel Hemoglobin A1c 5.8 Optimize control of blood pressure. Patient has been on aspirin 81 mg daily. This will be continued, unless MRI shows any acute abnormalities. Neuro checks every shift. Telemetry monitoring rule out any arrhythmia PT, OT, speech therapy DVT prophylaxis: Heparin 5000 units subcu every 8 hours Neurology will continue to follow. Thank you for the consult.
[2025-03-31 14:44] VITALS: BP 126/72; PULSE 61; TEMP 98.2
--- NOTE | 2025-03-31 16:51 | P.HPIM ---
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 Majority of history comes from daughter as patient answers questions inappropriately. Patient stayed from work this morning as she did not feel well. At 03:00 patient did complain of a headache. Patient has had confusion since that time. Grand daughter states that confusion has happened several times previously associated with patient's headaches, possibly 5 or 6 times that she is aware of. Patient has had a mild cough today. 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 baseline Cr is 1.5. She is followed by several specialists for managment of liver transplant and migraine and she is compliant with medications. She had recent blood work and all stable. In the ER she recieved a Chest X Ray, CT Head, and CT angio all of which did not reveal any acute pathology. EKG revealed sinus rhythm. CBC: Hgb: 13.6 WBC6: 7.45 PLt: 154 Pt: 10.3 INT: 0.9 PTT: 26.2 Na 138 K 5.1 Cr: 1.69 Glu: 196 Trop:< 0.012 Quad Screen: Neg REVIEW OF SYSTEMS: As stated above in HPI. The rest of the 14-point review of systems is negative. PHYSICAL EXAMINATION: GENERAL: The patient is alert and oriented x1, not in any acute distress. Well developed, well nourished. HEENT: Pupils are round and equally reacting to light. EOMI. No scleral icterus. No conjunctival pallor. Normocephalic, atraumatic. CARDIOVASCULAR: S1 and S2 present. No murmurs, rubs, or gallops. PULMONARY: Chest is clear to auscultation b/l, no wheezing or crackles. ABDOMEN: Soft, nontender, nondistended, normoactive bowel sounds. No palpable organomegaly. MUSCULOSKELETAL: No joint swelling or deformity. EXTREMITIES: No cyanosis, clubbing, or pedal edema. NEUROLOGICAL: Gross neurological examination did not reveal any focal deficits. SKIN: No rashes. Assessment and Plan #AMS likely secondary to aura # Migraine with Aura - Pain controlled effectively with nertec and IV tylenol -consult neuro, appreciate recs - Nuero checks q shift Chronic Conditions: #S/p Liver transplant -Tacrolimis BID w/ meals -Tacrolimus 0.5 w/ dinner CODE STATUS: Full Dispo: Pending clinical course Sj Ramos DO PGY1 Dictation was produced using [employer] dictation software. please excuse any gramm atical, word or spelling errors. Past Medical History Past Medical History: Hypertension Additional Past Medical History / Comment(s): hx. migraine headaches,. CIRROHISIS OF LIVER-UNKNOWN ORIGIN. Liver Transplant History of Any Multi-Drug Resistant Organisms: None Reported Past Surgical History: Appendectomy, Tonsillectomy Additional Past Surgical History / Comment(s): D & C's, liver transplant 12/24/21, thoracentesis Past Anesthesia/Blood Transfusion Reactions: No Reported Reaction Smoking Status: Never smoker - Past Family History Mother Family Medical History: Cancer Medications and Allergies Home Medications Medication Instructions Recorded Confirmed Type Pantoprazole [Protonix] 40 mg PO DAILY 02/02/22 03/31/25 History Aspirin EC [Ecotrin Low Dose] 81 mg PO DAILY 03/31/25 03/31/25 History Dicyclomine [Bentyl] 20 mg PO QID 03/31/25 03/31/25 History Losartan [Cozaar] 25 mg PO DAILY 03/31/25 03/31/25 History Magnesium Chloride [Mag64] 64 mg PO W/SUPPER 03/31/25 03/31/25 History NIFEdipine XL [Procardia XL] 90 mg PO DAILY 03/31/25 03/31/25 History Patiromer Calcium Sorbitex 1 packet PO W/LUNCH 03/31/25 03/31/25 History [Veltassa] Tacrolimus [Prograf] 0.5 mg PO W/SUPPER 03/31/25 03/31/25 History Tacrolimus [Prograf] 1 mg PO BID-W/MEALS 03/31/25 03/31/25 History Allergies Allergy/AdvReac Type Severity Reaction Status Date / Time egg white AdvReac Severe transischemic Uncoded 03/31/25 08:27 attacks Physical Exam Vitals: Vital Signs Temp Pulse Pulse Resp BP BP Pulse Ox 03/31/25 07:07 98.1 F 65 17 109/73 97 03/31/25 00:56 97.6 F 71 18 127/74 96 03/30/25 23:35 97.9 F 70 16 130/81 99 03/30/25 22:52 73 18 140/64 99 03/30/25 18:25 74 20 152/77 100 03/30/25 18:01 98 F 82 20 159/83 94 L Intake and Output 03/30/25 03/31/25 03/31/25 22:59 06:59 14:59 Other: Voiding Method External Catheter # Voids 1 Weight 81.647 kg Results CBC & Chem 7: 03/30/25 18:22 03/30/25 18:22 Labs: Abnormal Lab Results - Last 24 Hours (Table) 03/30/25 Range/Units 18:22 Carbon Dioxide 20 L (22-30) mmol/L BUN 34 H (7-17) mg/dL Creatinine 1.69 H (0.52-1.04) mg/dL Glucose 196 H (74-99) mg/dL Thrombosis Risk Factor Assmnt - Choose All That Apply Any of the Below Risk Factors Present?: No Each Factor Represents 1 point: Obesity (BMI >25) Other Risk Factors: Yes Each Risk Factor Represents 2 Points: Age 61-74 years Other congenital or acquired thrombophilia - If yes, enter type in comment: No Thrombosis Risk Factor Assessment Total Risk Factor Score: 3 Thrombosis Risk Factor Assessment Level: Moderate Risk
--- NOTE | 2025-03-31 16:57 | P.DS ---
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 Majority of history comes from daughter as patient answers questions inappropriately. Patient did stay home from work this morning as she did not feel well. At 3:00 patient did complain of a headache. Patient has had confusion since that time. Grand daughter states that confusion has happened several times previously associated with patient's headaches, possibly 5 or 6 times that she is aware of. Patient has had a mild cough today. 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 baseline Cr is 1.5. She is followed by several specialists for managment of liver transplant and migraine and she is compliant with medications. She had recent blood work and all stable. In the ER she recieved a Chest X Ray, CT Head, and CT angio all of which did not reveal any acute pathology. EKG revealed sinus rhythm. At this point it was determined she should be admitted for further evaluation. While admitted, she was seen and evaluated by neurology, on subsequent exam she has no nuerological defecits. All imaging was negative. Lab chemistries were within normal limits. MRI was recommended by neurology, pt refused due to claustrophobia. She reports migraine resolved, she is on optimal migraine re giment. Neuro saw and evaluated the patent, we decided she required no further workup as symptoms resolvedl. She has followup with neurology and primary care. She is hemodynamically stable at time of discharge without defecits. Pt seen and examined, no current complaints or concerns. Vital signs reveiwed and stable: PHYSICAL EXAMINATION: GENERAL: The patient is alert and oriented x3, not in any acute distress. Well developed, well nourished. HEENT: Pupils are round and equally reacting to light. EOMI. No scleral icterus. No conjunctival pallor. Normocephalic, atraumatic. CARDIOVASCULAR: S1 and S2 present. No murmurs, rubs, or gallops. PULMONARY: Chest is clear to auscultation b/l, no wheezing or crackles. ABDOMEN: Soft, nontender, nondistended, normoactive bowel sounds. No palpable organomegaly. MUSCULOSKELETAL: No joint swelling or deformity. EXTREMITIES: No cyanosis, clubbing, or pedal edema. NEUROLOGICAL: On cranial nerve examination, pupils are equal, round and reacting to light, visual underwood are full on confrontation, with no neglect on double simultaneous stimulation. Extraocular muscles are intact with no nystagmus. Face is symmetric, tongue protrudes to the midline. Palatal elevation and sensation normal, hearing and shoulder shrug normal, facial sensation normal. On muscle strength testing, there is no pronator drift and the strength is normal in arms and legs distally and proximally. Deep tendon reflexes are symmetric 1+ at the biceps, 1+ peculiarities, 2 at the knees 1 ankles and plantars downgoing. Sensory to touch is equal with no neglect on double simultaneous stimulation. Cerebellar function showed no ataxia for [id number] testing. No dysdiadochokinesia. No ataxia for awgl-ac-bemn testing on either side. Tone and bulk of muscles normal. SKIN: No rashes. Assessment and Plan A total of 30 minutes were spent preparing this complex discarge summary. Patient was discharged on 03/31 Plan - Discharge Summary Discharge Rx Participant: No New Discharge Prescriptions: Continue Tacrolimus [Prograf] 0.5 mg PO W/SUPPER Patiromer Calcium Sorbitex [Veltassa] 1 packet PO W/LUNCH Aspirin EC [Ecotrin Low Dose] 81 mg PO DAILY Dicyclomine [Bentyl] 20 mg PO QID Pantoprazole [Protonix] 40 mg PO DAILY NIFEdipine XL [Procardia XL] 90 mg PO DAILY Losartan [Cozaar] 25 mg PO DAILY Tacrolimus [Prograf] 1 mg PO BID-W/MEALS Magnesium Chloride [Mag64] 64 mg PO W/SUPPER Discharge Medication List Pantoprazole [Protonix] 40 mg PO DAILY 02/02/22 [History] Aspirin EC [Ecotrin Low Dose] 81 mg PO DAILY 03/31/25 [History] Dicyclomine [Bentyl] 20 mg PO QID 03/31/25 [History] Losartan [Cozaar] 25 mg PO DAILY 03/31/25 [History] Magnesium Chloride [Mag64] 64 mg PO W/SUPPER 03/31/25 [History] NIFEdipine XL [Procardia XL] 90 mg PO DAILY 03/31/25 [History] Patiromer Calcium Sorbitex [Veltassa] 1 packet PO W/LUNCH 03/31/25 [History] Tacrolimus [Prograf] 0.5 mg PO W/SUPPER 03/31/25 [History] Tacrolimus [Prograf] 1 mg PO BID-W/MEALS 03/31/25 [History] Follow up Appointment(s)/Referral(s): None,Stated [REFERRING] - 1-2 days Patient Instructions/Handouts: Migraine Headache (ED), Migraine Headache (GEN) Activity/Diet/Wound Care/Special Instructions: FOLLOW UP WITH NEUROLOGIST WITHIN THE WEEK RETURN TO ER FOR WORSENING SYMPTOMS, PROBLEMS, OR CONCERNS. Discharge Disposition: HOME SELF-CARE
[2025-04-01] MEDS ORDERED: TACROLIMUS 0.5 MG CAP PO SCH (09:00)
--- NOTE | 2025-04-01 11:49 | CA ---
Transthoracic Echo Report Name: Tena Alonzo Age: 69 Gender: F : 1955 Exam Date: 03/31/2025 14:42 Exam Location: [place] [facility] Ht (in): 64 Wt (lb): 180 Ordering Physician: Ravindra Mckinnon MD Attending/Referring Phys: Cmo & President Jazmín Brady RDCS Procedure CPT: Indications: cOMPLEX MIGRAINE VS TIA Cardiac Hx: Technical Quality: Fair Contrast 1: Agitated Saline Total Dose (mL): 10 Contrast 2: Total Dose (mL): MEASUREMENTS (Male / Female) Normal Values 2D ECHO LV Diastolic Diameter PLAX 3.7 cm 4.2 - 5.9 / 3.9 - 5.3 cm LV Systolic Diameter PLAX 2.5 cm IVS Diastolic Thickness 1.2 cm 0.6 - 1.0 / 0.6 - 0.9 cm LVPW Diastolic Thickness 1.2 cm 0.6 - 1.0 / 0.6 - 0.9 cm LV Relative Wall Thickness 0.7 RV Internal Dim ED PLAX 3.3 cm LVOT Diameter 1.5 cm LA Systolic Diameter LX 3.8 cm 3.0 - 4.0 / 2.7 - 3.8 cm LV Diastolic Volume MOD 4C 86.2 cm??? LV Systolic Volume MOD 4C 36.6 cm??? LV Ejection Fraction MOD 4C 57.5 % LV Cardiac Index MOD 4C 1653.7 cm???/min???m??? LV Diastolic Length 4C 7.6 cm LV Systolic Length 4C 6.2 cm LA Volume 48.2 cm??? 18 - 58 / 22 - 52 cm??? LA Volume Index 24.7 cm???/m??? 16 - 28 cm???/m??? DOPPLER AI Peak Velocity 425.4 cm/s AI Peak Gradient 72.4 mmHg AI Pressure Half Time 560.9 ms MV Area PHT 3.2 cm??? Mitral E Point Velocity 77.7 cm/s Mitral A Point Velocity 87.4 cm/s Mitral E to A Ratio 0.9 MV Deceleration Time 240.2 ms TR Peak Velocity 207.7 cm/s TR Peak Gradient 17.3 mmHg FINDINGS Left Ventricle Left ventricular ejection fraction is estimated at 60-65%. Mild concentric left ventricular hypertrophy. Mildly increased septal wall thickness. Left ventricular cavity size normal. Normal left ventricular systolic function with no obvious regional wall motion abnormalities. Right Ventricle Normal right ventricular size and function. Right ventricular systolic pressure within normal limits. Right Atrium Normal right atrial size. Negative agitated saline bubble study for right to left shunt. Left Atrium Normal left atrial size. Mitral Valve Mitral annular calcification. No mitral stenosis. Mild mitral regurgitation. Aortic Valve Trileaflet aortic valve. Thickened aortic valve without stenosis. Mild aortic regurgitation. Tricuspid Valve Structurally normal tricuspid valve. No tricuspid stenosis. Trace tricuspid regurgitation. Pulmonic Valve Structurally normal pulmonic valve. No pulmonic stenosis. Trace pulmonic regurgitation. Pericardium No pericardial effusion. Aorta Normal size aortic root and proximal ascending aorta. CONCLUSIONS Diagnosis: TIA LVH with preserved systolic function ejection fraction greater than 60% No valvular abnormalities No evidence for [id number] shunting at the atrial level Previewed by: Dr. Rajat Bashir MD (Electronically Signed) Final Date: 01 April 2025 11:49
== END 2025-03-31 16:30 | disposition home or self-care (01) ==
LOC: EC 17:39 → 6NMEDSUR 20:48
PROVIDERS: ADMIT Internal Medicine; ATTEND Internal Medicine
DX: R41.82 Altered mental status, unspecified (principal); G43.109 Migraine with aura, not intractable, without status migrainosus; E78.5 Hyperlipidemia, unspecified; F40.240 Claustrophobia; I10 Essential (primary) hypertension; R47.01 Aphasia; Z79.82 Long term (current) use of aspirin; Z79.4 Long term (current) use of insulin; Z79.899 Other long term (current) drug therapy; Z79.52 Long term (current) use of systemic steroids; Z94.4 Liver transplant status
CPT/HCPCS: 96376; 96361 ×2; 96365; 96375; 99285; 36415; 93005; 93306; 80053; 82140; 82550; 84484; 85025; 85610; 85730; 87636; 71046; 70496; 70450; 70498; G0378 ×2; J2270 ×2; J2765; J2405; J0131; Q9967